=== PATIENT | male | born 1960 | race Hispanic/Latino ===

== ENCOUNTER 2020-12-26 16:11 | Inpatient (IN) | payer OTHER ==
[~2020-12-26] VITALS: Ht 160 cm; Wt 79.4 kg
[2020-12-26] MEDS ORDERED: MORPHINE SULFATE 2 MG/ML 1ML SYG ONE (16:30)
[2020-12-26] MEDS ORDERED: ONDANSETRON HCL 4 MG/2 ML VIAL ONE (16:30)
[2020-12-26 17:12] LABS: BASOPHILS % (AUTO) 0.5 % (0.0-5.0); EOSINOPHILS % (AUTO) 2.2 % (0.0-8.0); HEMATOCRIT 21.3 % (42-54); LYMPHOCYTES % (AUTO) 25.9 % (21.0-51.0); MEAN CORPUSCULAR HEMOGLOBIN 23.1 pg (27.0-33.0); MEAN CORPUSCULAR VOLUME 76.9 fL (79-99); MONOCYTES % (AUTO) 20.8 % (3.0-13.0); NEUTROPHILS % (AUTO) 50.3 % (40.0-77.0); PLATELET COUNT (AUTO) 48 K/uL (130-400); RED BLOOD CELL COUNT(AUTO) 2.77 MIL/uL (4.50-6.20); RED CELL DISTRIBUTION WIDTH 16.7 % (11.0-15.5); WHITE BLOOD COUNT (AUTO) 3.7 K/uL (4.8-10.8)
[2020-12-26 17:15] LABS: CREATININE 1.3 mg/dL (0.5-1.5); POTASSIUM 4.3 mmol/L (3.5-5.1)
[2020-12-26 17:17] LABS: INR 1.23 (0.85-1.15); PROTHROMBIN TIME 13.2 SEC (9.6-11.6)
[2020-12-26 17:18] LABS: PARTIAL THROMBOPLASTIN TIME 33.7 SEC (26.3-35.5)
[2020-12-26 17:20] LABS: ALBUMIN 2.2 g/dL (3.5-5.0)
[2020-12-26] MEDS ORDERED: THIAMINE HCL 100 MG, FOLIC ACID 1 MG, M.V.I. IV [ADULT] 10 ML in SODIUM CHLORIDE 0.9% 1... IV SCH (18:30)
[2020-12-26] MEDS ORDERED: CHLORDIAZEPOXIDE HCL 25 MG CAP PO PRN (18:30)
[2020-12-26] MEDS ORDERED: COMPOUND IV REFRIGERATED 1 EACH IVSOLN MISC PRN (18:30)
[2020-12-26] MEDS ORDERED: PHARMACY COMMUNICATION MISC PRN (18:30)
[2020-12-26 19:20] LABS: APPEARANCE,URINE Clear (CLEAR); BILIRUBIN,URINE Negative (NEGATIVE); COLOR,URINE Yellow (YELLOW); GLUCOSE, URINE (UA) Negative (NEGATIVE); KETONES,URINE Negative (NEGATIVE); LEUKOCYTE ESTERASE ,URINE Negative (NEGATIVE); NITRATE,URINE Negative (NEGATIVE); OCCULT BLOOD,URINE Large (NEGATIVE); PH,URINE 6.5 (5.0-8.0); PROTEIN,URINE POS 2+ mg/dL (NEGATIVE)
[2020-12-26 19:28] LABS: AMPHET/METH SCREEN,URINE NEGATIVE (NEGATIVE); BACTERIA,URINE Few /HPF (None Seen); BARBITURATE SCREEN, URINE NEGATIVE (NEGATIVE); BENZODIAZEPINES SCREEN,URINE NEGATIVE (NEGATIVE); CANNABINOID SCREEN,URINE NEGATIVE (NEGATIVE); COCAINE SCREEN,URINE NEGATIVE (NEGATIVE); MUCUS,URINE Few LPF (None Seen); OPIATE SCREEN,URINE NEGATIVE (NEGATIVE); PHENCYCLIDINE SCREEN,URINE NEGATIVE (NEGATIVE); SQUAMOUS EPITHELIAL CELL,UR 0-2 /HPF (0-2)
== END 2020-12-26 20:50 | disposition left against medical advice (07) | DRG 563 ==
LOC: EDH 16:11 → EDHIP 16:12
PROVIDERS: ADMIT Internal Medicine; ATTEND Internal Medicine
DX: S52.501A Unspecified fracture of the lower end of right radius, initial encounter for closed fracture (principal); D61.818 Other pancytopenia; N17.9 Acute kidney failure, unspecified; F10.139 Alcohol abuse with withdrawal, unspecified; W11.XXXA Fall on and from ladder, initial encounter; K74.60 Unspecified cirrhosis of liver; F10.10 Alcohol abuse, uncomplicated; N18.2 Chronic kidney disease, stage 2 (mild); Z53.29 Procedure and treatment not carried out because of patient's decision for other reasons; Y93.89 Activity, other specified; Y92.89 Other specified places as the place of occurrence of the external cause; Y99.8 Other external cause status
CPT/HCPCS: 36415; 70450; 71045; 72125; 73090; 73130; 76705; 80053; 80305; 81001; 82550; 83880; 84484; 85025; 85610; 85730; 86850; 86900; 86901; 86923; 93005; G0378; J2405; J3411; J3490; J7030

== ENCOUNTER 2022-01-18 00:12 | Inpatient (IN) | payer OTHER ==
[~2022-01-18] VITALS: Ht 162.6 cm; Wt 91.7 kg
[2022-01-18 01:00] LABS: BASOPHILS % (AUTO) 0.4 % (0.0-5.0); EOSINOPHILS % (AUTO) 11.7 % (0.0-8.0); HEMATOCRIT 25.6 % (42-54); INR 1.15 (0.85-1.15); LYMPHOCYTES % (AUTO) 24.2 % (21.0-51.0); MEAN CORPUSCULAR HEMOGLOBIN 30.9 pg (27.0-33.0); MEAN CORPUSCULAR HGB CONC 34.8 g/dL (32.0-36.0); MEAN CORPUSCULAR VOLUME 88.9 fL (79-99); MONOCYTES % (AUTO) 13.8 % (3.0-13.0); NEUTROPHILS % (AUTO) 49.7 % (40.0-77.0); PLATELET COUNT (AUTO) 85 K/uL (130-400); PROTHROMBIN TIME 12.4 SEC (9.6-11.6); RED BLOOD CELL COUNT(AUTO) 2.88 MIL/uL (4.50-6.20); RED CELL DISTRIBUTION WIDTH 15.2 % (11.0-15.5); WHITE BLOOD COUNT (AUTO) 4.9 K/uL (4.8-10.8)
[2022-01-18 01:01] LABS: PARTIAL THROMBOPLASTIN TIME 32.7 SEC (26.3-35.5)
[2022-01-18 01:23] LABS: B-TYPE NATRIURETIC PEPTIDE 134 pg/mL (0-100)
[2022-01-18 01:24] LABS: CREATININE 0.7 mg/dL (0.5-1.5); POTASSIUM 3.5 mmol/L (3.5-5.1)
[2022-01-18 01:28] LABS: TOTAL PROTEIN, SERUM 5.1 g/dL (6.0-8.3)
[2022-01-18 01:37] LABS: APPEARANCE,URINE Clear (CLEAR); BILIRUBIN,URINE Negative (NEGATIVE); COLOR,URINE Yellow (YELLOW); GLUCOSE, URINE (UA) Negative (NEGATIVE); KETONES,URINE Negative (NEGATIVE); LEUKOCYTE ESTERASE ,URINE Negative (NEGATIVE); NITRATE,URINE Negative (NEGATIVE); OCCULT BLOOD,URINE Large (NEGATIVE); PROTEIN,URINE POS 2+ mg/dL (NEGATIVE)
[2022-01-18 01:43] LABS: BACTERIA,URINE Few /HPF (None Seen); SQUAMOUS EPITHELIAL CELL,UR Rare /HPF (0-2)
[2022-01-18] MEDS ORDERED: LORAZEPAM 2 MG/ML 1 ML VIAL IVP PRN (02:00)
[2022-01-18] MEDS ORDERED: ASPIRIN 81MG CHEW TAB PO ONE (02:00)
[2022-01-18] MEDS ORDERED: PHARMACY COMMUNICATION MISC PRN (02:00)
[2022-01-18] MEDS ORDERED: 0.9%NACL 1000ML 1,000 ML IV SCH (02:00)
[2022-01-18] MEDS ORDERED: MORPHINE 4 MG SYG IV PRN (02:00)
[2022-01-18] MEDS ORDERED: MORPHINE 2 MG SYG IV PRN (02:00)
[2022-01-18] MEDS: LACTULOSE 20 GM/30 ML UDCUP PO SCH ×4 (02:21→20:39)
[2022-01-18] MEDS: NITROGLYCERIN 1GM OINT 1 INCH/1GM TD SCH ×3 (02:22→17:37)
[2022-01-18] MEDS ORDERED: FUROSEMIDE 40MG VIAL IV ONE (02:30)
[2022-01-18] MEDS ORDERED: LORA10TA7 PO (06:11)
[2022-01-18] MEDS ORDERED: TRIA15CR48 TP (06:11)
[2022-01-18 08:00] VITALS: BP 159/85
[2022-01-18 08:07] LABS: % IRON SATURATION 25.7 % (30-44)
[2022-01-18 08:10] LABS: CREATININE 0.7 mg/dL (0.5-1.5); MAGNESIUM 1.6 mg/dL (1.80-2.40); PHOSPHORUS 3.4 mg/dL (2.5-4.9); POTASSIUM 3.3 mmol/L (3.5-5.1)
[2022-01-18] MEDS: CALCIUM CARB 500MG PO SCH ×2 (08:58→20:39)
[2022-01-18] MEDS: FAMOTIDINE 20MG TAB PO SCH ×2 (08:58→20:39)
[2022-01-18] MEDS: ASPIRIN 81MG CHEW TAB PO SCH (08:58)
[2022-01-18 12:00] VITALS: BP 150/82
[2022-01-18] MEDS ORDERED: KCL 20 MEQ ERTAB PO SCH (13:00)
[2022-01-18] MEDS: FUROSEMIDE 20 MG TABLET PO SCH (13:22)
[2022-01-18 16:00] VITALS: BP 137/76
[2022-01-18 17:59] LABS: RETICULOCYTE % (AUTO) 3.01 % (0.42-2.23)
[2022-01-18] MEDS ORDERED: IRON SUCROSE COMPLEX 100 MG in 0.9%NACL 50ML 50 ML IV SCH (18:30)
[2022-01-18 18:37] LABS: THYROID STIMULATING HORMONE 2.04 uIU/mL (0.36-3.74)
[2022-01-18] MEDS: IRON SUCROSE COMPLEX 100 MG/5 ML VIAL IVP SCH (18:50)
[2022-01-18] MEDS ORDERED: CEFTRIAXONE 2GM VIAL IVP SCH (19:00)
[2022-01-18 20:04] VITALS: BP 141/74
[2022-01-18 20:11] LABS: POTASSIUM 3.7 mmol/L (3.5-5.1)
[2022-01-18] MEDS: RIFAXIMIN 550 MG TABLET PO SCH (20:39)
[2022-01-18] MEDS: SPIRONOLACTONE 25 MG TAB PO SCH (20:39)
[2022-01-18 23:38] VITALS: BP 170/92
[2022-01-19] MEDS: FUROSEMIDE 20 MG TABLET PO SCH ×2 (00:38→12:19)
[2022-01-19] MEDS: LACTULOSE 20 GM/30 ML UDCUP PO SCH ×4 (01:58→21:25)
[2022-01-19] MEDS: NITROGLYCERIN 1GM OINT 1 INCH/1GM TD SCH (02:09)
[2022-01-19 03:49] VITALS: BP 135/88
[2022-01-19 04:33] LABS: BASOPHILS % (AUTO) 0.3 % (0.0-5.0); EOSINOPHILS % (AUTO) 13.6 % (0.0-8.0); HEMATOCRIT 24.2 % (42-54); MEAN CORPUSCULAR HEMOGLOBIN 30.5 pg (27.0-33.0); MEAN CORPUSCULAR HGB CONC 33.1 g/dL (32.0-36.0); MEAN CORPUSCULAR VOLUME 92.4 fL (79-99); MONOCYTES % (AUTO) 15.6 % (3.0-13.0); NEUTROPHILS % (AUTO) 50.5 % (40.0-77.0); PLATELET COUNT (AUTO) 80 K/uL (130-400); RED BLOOD CELL COUNT(AUTO) 2.62 MIL/uL (4.50-6.20); RED CELL DISTRIBUTION WIDTH 15.7 % (11.0-15.5); WHITE BLOOD COUNT (AUTO) 3.6 K/uL (4.8-10.8)
[2022-01-19 04:49] LABS: INR 1.24 (0.85-1.15); PROTHROMBIN TIME 12.7 SEC (9.6-11.6)
[2022-01-19 04:51] LABS: ALBUMIN 0.9 g/dL (3.5-5.0); BILIRUBIN,TOTAL 0.8 mg/dL (0.2-1.0); CREATININE 0.9 mg/dL (0.5-1.5); POTASSIUM 3.4 mmol/L (3.5-5.1); TOTAL PROTEIN, SERUM 4.6 g/dL (6.0-8.3)
[2022-01-19 08:00] VITALS: BP 145/90
[2022-01-19] MEDS: FAMOTIDINE 20MG TAB PO SCH ×2 (08:07→21:26)
[2022-01-19] MEDS: RIFAXIMIN 550 MG TABLET PO SCH ×2 (08:07→21:26)
[2022-01-19] MEDS: ASPIRIN 81MG CHEW TAB PO SCH (08:08)
[2022-01-19] MEDS: CALCIUM CARB 500MG PO SCH ×2 (08:08→21:26)
[2022-01-19] MEDS: SPIRONOLACTONE 25 MG TAB PO SCH ×2 (08:08→21:26)
[2022-01-19] MEDS ORDERED: KCL 20 MEQ ERTAB PO SCH (09:00)
[2022-01-19] MEDS ORDERED: THIAMINE HCL 100 MG/ML 2ML VIAL IVP SCH (11:30)
[2022-01-19 12:00] VITALS: BP 147/84
[2022-01-19 13:23] LABS: GLUCOSE,BODY FLUID 110 mg/dL (1-40)
[2022-01-19 13:37] LABS: APPEARANCE BODY FLUID CLEAR (CLEAR); BODY FLUID WBC 99 /cu. mm.; COLOR,BODY FLUID YELLOW (LT YELLOW); SPECIMENTYPE,BODY FLUID ASCITES; TOTAL VOLUME,BODY FLUID 2000 mL
[2022-01-19 13:38] LABS: BODY FLUID RBC 45 /cu. mm.
[2022-01-19 13:43] LABS: ALBUMIN,BODY FLUID < 0.6 g/dL
[2022-01-19 14:10] LABS: AMPHET/METH SCREEN,URINE NEGATIVE (NEGATIVE); BARBITURATE SCREEN, URINE NEGATIVE (NEGATIVE); BENZODIAZEPINES SCREEN,URINE NEGATIVE (NEGATIVE); CANNABINOID SCREEN,URINE NEGATIVE (NEGATIVE); COCAINE SCREEN,URINE NEGATIVE (NEGATIVE); OPIATE SCREEN,URINE NEGATIVE (NEGATIVE); PHENCYCLIDINE SCREEN,URINE NEGATIVE (NEGATIVE)
[2022-01-19 14:38] LABS: BF LYMPHOCYTE 19 %; BF MESOTHELIAL 74 %; BF MONOCYTE 6 %
[2022-01-19 14:41] LABS: HEPATITIS B SURFACE ANTIGEN Non-Reactive (Negative)
[2022-01-19] MEDS ORDERED: LIDOCAINE HCL 1% 20 ML VIAL ONE (15:39)
[2022-01-19 16:00] VITALS: BP 154/75
[2022-01-19] MEDS: IRON SUCROSE COMPLEX 100 MG/5 ML VIAL IVP SCH (18:20)
[2022-01-19 19:40] LABS: HEPATITIS A IGM ANTIBODY Non-Reactive (Negative); HEPATITIS B CORE IGM ANTIBODY Non-Reactive (Negative); HEPATITIS C ANTIBODY Non-Reactive (NEGATIVE)
[2022-01-19 20:00] VITALS: BP 143/74
[2022-01-19] MEDS: CEFTRIAXONE 2GM VIAL IVP SCH (21:26)
[2022-01-20] VITALS (7 sets, daily range): BP systolic 142–166; BP diastolic 68–86
[2022-01-20] MEDS: FUROSEMIDE 20 MG TABLET PO SCH ×2 (00:43→13:03)
[2022-01-20 06:49] LABS: BASOPHILS % (AUTO) 0.3 % (0.0-5.0); EOSINOPHILS % (AUTO) 11.7 % (0.0-8.0); HEMATOCRIT 24.6 % (42-54); LYMPHOCYTES % (AUTO) 22.9 % (21.0-51.0); MEAN CORPUSCULAR HEMOGLOBIN 31.3 pg (27.0-33.0); MEAN CORPUSCULAR HGB CONC 32.9 g/dL (32.0-36.0); MONOCYTES % (AUTO) 15.1 % (3.0-13.0); NEUTROPHILS % (AUTO) 49.7 % (40.0-77.0); PLATELET COUNT (AUTO) 75 K/uL (130-400); RED BLOOD CELL COUNT(AUTO) 2.59 MIL/uL (4.50-6.20); RED CELL DISTRIBUTION WIDTH 16.1 % (11.0-15.5); WHITE BLOOD COUNT (AUTO) 3.5 K/uL (4.8-10.8)
[2022-01-20 07:05] LABS: ALBUMIN 0.8 g/dL (3.5-5.0); BILIRUBIN,TOTAL 0.6 mg/dL (0.2-1.0); CREATININE 0.9 mg/dL (0.5-1.5); MAGNESIUM 1.7 mg/dL (1.80-2.40); POTASSIUM 3.8 mmol/L (3.5-5.1); TOTAL PROTEIN, SERUM 4.7 g/dL (6.0-8.3)
[2022-01-20] MEDS: RIFAXIMIN 550 MG TABLET PO SCH ×2 (08:53→20:34)
[2022-01-20] MEDS: SPIRONOLACTONE 25 MG TAB PO SCH ×2 (08:54→20:33)
[2022-01-20] MEDS: FAMOTIDINE 20MG TAB PO SCH ×2 (08:54→20:34)
[2022-01-20] MEDS: ASPIRIN 81MG CHEW TAB PO SCH (08:54)
[2022-01-20] MEDS: CALCIUM CARB 500MG PO SCH ×2 (08:54→20:33)
[2022-01-20] MEDS: LACTULOSE 20 GM/30 ML UDCUP PO SCH (18:38)
[2022-01-20] MEDS: CEFTRIAXONE 2GM VIAL IVP SCH (20:33)
[2022-01-20] MEDS: IRON SUCROSE COMPLEX 100 MG/5 ML VIAL IVP SCH (20:33)
[2022-01-21 00:03] VITALS: BP 156/85
[2022-01-21] MEDS: FUROSEMIDE 20 MG TABLET PO SCH (00:17)
[2022-01-21] MEDS: LACTULOSE 20 GM/30 ML UDCUP PO SCH ×2 (00:19→05:12)
[2022-01-21 03:03] VITALS: BP 148/77
[2022-01-21 04:01] LABS: HEMATOCRIT 24.1 % (42-54); MEAN CORPUSCULAR HEMOGLOBIN 31.1 pg (27.0-33.0); MEAN CORPUSCULAR HGB CONC 32.8 g/dL (32.0-36.0); MEAN CORPUSCULAR VOLUME 94.9 fL (79-99); RED BLOOD CELL COUNT(AUTO) 2.54 MIL/uL (4.50-6.20); RED CELL DISTRIBUTION WIDTH 15.9 % (11.0-15.5); WHITE BLOOD COUNT (AUTO) 4.2 K/uL (4.8-10.8)
[2022-01-21 04:20] LABS: ALBUMIN 0.9 g/dL (3.5-5.0); BILIRUBIN,TOTAL 0.5 mg/dL (0.2-1.0); CREATININE 0.8 mg/dL (0.5-1.5); POTASSIUM 3.9 mmol/L (3.5-5.1); TOTAL PROTEIN, SERUM 4.5 g/dL (6.0-8.3)
[2022-01-21] MEDS ORDERED: FURO20TA6 PO (07:04)
[2022-01-21] MEDS ORDERED: RIFA550T PO (07:04)
[2022-01-21] MEDS ORDERED: SPIR25TA6 PO (07:04)
[2022-01-21] MEDS ORDERED: ASPI-1005 PO (07:04)
[2022-01-21] MEDS: RIFAXIMIN 550 MG TABLET PO SCH (07:52)
[2022-01-21] MEDS: FAMOTIDINE 20MG TAB PO SCH (07:52)
[2022-01-21] MEDS: ASPIRIN 81MG CHEW TAB PO SCH (07:52)
[2022-01-21] MEDS: CALCIUM CARB 500MG PO SCH (07:52)
[2022-01-21] MEDS: SPIRONOLACTONE 25 MG TAB PO SCH (07:53)
[2022-01-21 08:00] VITALS: BP 138/75
== END 2022-01-21 09:50 | disposition home or self-care (01) | DRG 441 ==
LOC: EDH 00:12 → EDHIP 00:13 → 4DH 04:35 → 2DH 01-20 22:08
PROVIDERS: ADMIT Internal Medicine; ATTEND Internal Medicine
PROC: 0W9G3ZZ Drainage of Peritoneal Cavity, Percutaneous Approach (ICD-10-PCS; principal; 2022-01-19)
DX: K72.90 Hepatic failure, unspecified without coma (principal); E43 Unspecified severe protein-calorie malnutrition; E87.1 Hypo-osmolality and hyponatremia; R18.8 Other ascites; K74.60 Unspecified cirrhosis of liver; D69.6 Thrombocytopenia, unspecified; E66.9 Obesity, unspecified; E83.51 Hypocalcemia; E87.70 Fluid overload, unspecified; I34.0 Nonrheumatic mitral (valve) insufficiency; F10.10 Alcohol abuse, uncomplicated; Z68.34 Body mass index [BMI] 34.0-34.9, adult
CPT/HCPCS: 36415; 49083; 71045; 80048; 80053; 80074; 80305; 81001; 82042; 82140; 82607; 82728; 82746; 82945; 83540; 83550; 83615; 83735; 83880; 83930; 83935; 83986; 84100; 84157; 84443; 84484; 85025; 85027; 85045; 85610; 85730; 87071; 87205; 89051; 93005; 93306; C1729; G0378; J0696; J1756; J1940; J3411

== ENCOUNTER 2025-05-08 21:52 | Inpatient (IN) | payer SELFPAY ==
[~2025-05-08] VITALS: Ht 165.1 cm; Wt 69.0 kg
[~2025-05-08 21:52] MED LIST: FERR324T4 PO; LACT10SO85 PO; RIFA550T PO; SUCCINYLCHOLINE CHLORIDE 20 MG/ML 10 ML VIAL IVP ONE
--- NOTE | 2025-05-08 22:12 | ERN ---
ED Note History of Present Illness Stated Complaint: C/O ALTERED MENTAL STATUS; Chief Complaint: Altered Mental Status Time Seen by MD: 22:03 Dictation: This is a 65-year-old male with known history of cirrhosis of the liver was brought to the emergency room by his with complaints of confusion and disorientation. She indicated that he has been taking rifaximin for the past 10 days although he was recommended for 30 days. She also indicated that he does take lactulose and has 3-4 loose stools daily. She denied any fevers chills or rigors. No new medications. No nausea vomitings diarrhea other than the loose stools from lactulose No history of any head injury, blurred vision diplopia motor weakness or seizure activity. Temperature 98.5 pulse 87 respirations 20 blood pressure 160/64 with a pulse oximetry of 99% on room air Chronic medical problem includes cirrhosis of the liver Allergies: Coded Allergies: No Known Allergies (Verified Allergy, Unknown, 12/26/20) Home Meds Active Scripts Rifaximin (Xifaxan) 550 Mg Tablet, 550 MG PO Q12H, #60 TAB Prov:REGINA LOGAN MD 03/29/25 Lactulose (Lactulose) 10 Gram/15 Ml Solution, 45 ML PO TID for constipation, #500 ML 0 Refills Prov:REGINA LOGAN MD 03/29/25 Reported Medications Ferrous Sulfate (Ferrous Sulfate) 324 Mg (65 Mg Iron) Tablet.dr, 1 TAB PO DAILY for 30 Days, #30 TAB 0 Refills 03/27/25 Past Medical History Past Medical History: Other Additional Past Medical Hx: CIRRHOSIS OF LIVER Surgical History: Other Surgical History Other: hernia repair sx 12/2024 Family History: Negative RN Note Reviewed/Agreed w/PFSH: Yes Review of System Dictation Constitutional: Negative for fever,chills, and weight loss Eyes: Negative for injury, pain,redness, and discharge ENT: Negative for injury,pain or swelling Cardiovascular: Negative for chest pain, palpitations, and edema Respiratory: Negative for shortness of breath, cough, and wheezing, Abdomen/GI: Negative for abdominal pain, nausea, vomiting, diarrhea, and constipation Back: Negative for injury and pain : Negative for injury, bleeding and discharge MS/Extremity: Negative for injury and deformity Skin: Negative for rash, and discoloration Neuro: Negative for headache, weakness, numbness, tingling, and seizure positive for disorientation and confusion Psych: Negative for suicide ideation, homicidal ideation, and hallucinations Initial Vital Sign VS Vital Signs Date Time Temp Pulse Resp B/P (MAP) Pulse Ox O2 Delivery O2 Flow Rate FiO2 05/08/25 21:54 98.4 87 20 160/64 99 Room Air 05/08/25 22:38 0 21 Physical Exam Dictation General: awake, alert, NAD very ill-appearing chronically and extremely disoriented repeating same sentence for every question. Head/Face: Normocephalic, atraumatic Eyes: PERRL, EOMI, vision at baseline ENT: oral cavity dry TMs clear, no signs of infection Neck: Trachea midline, supple, no nuchal rigidity Cardiovascular: RRR, normal S1/S2, No MRGs, no JVD Respiratory: CTAB, no respiratory distress, No rales or wheezes Abdomen: Soft, non-tender, non-distended, normal bowel sounds, no guarding or rebound. I did not appreciate any ascites Skin: Warm, dry, normal turgor, no rash spider nevi across the chest neck area MS/Extremity: Pulses equal, no cyanosis, neurovascular intact, FROM Neuro: COAx1, strength 5/5, CN 2-12 intact, normal cerebellar exam, Psych: Normal behavior, mood, and affect normal Extremities-trace edema without any palpable cords, Homans sign is negative Results (Laboratory/Radiology) Laboratory/Radiology Laboratory Tests Test 05/08/25 22:38 05/08/25 23:33 White Blood Count 3.4 K/uL (4.8-10.8) L Red Blood Count 2.30 MIL/uL (4.50-6.20) L Hemoglobin 7.6 g/dL (14.0-18.0) L Hematocrit 23.0 % (42-54) L Mean Corpuscular Volume 100.0 fL (79-99) H Mean Corpuscular Hemoglobin 33.0 pg (27.0-33.0) Mean Corpuscular Hemoglobin Concent 33.0 g/dL (32.0-36.0) Red Cell Distribution Width 15.0 % (11.0-15.5) Platelet Count 66 K/uL (130-400) L Mean Platelet Volume 12.8 fL (7.5-10.5) H Immature Granulocyte % (Auto) 0.3 % (0-1) Neutrophils (%) (Auto) 59.6 % (40.0-77.0) Lymphocytes (%) (Auto) 20.2 % (21.0-51.0) L Monocytes (%) (Auto) 11.1 % (3.0-13.0) Eosinophils (%) (Auto) 8.5 % (0.0-8.0) H Basophils (%) (Auto) 0.3 % (0.0-5.0) Neutrophils # (Auto) 2.0 K/uL (1.8-7.7) Lymphocytes # (Auto) 0.7 K/uL (1.0-4.8) L Monocytes # (Auto) 0.4 K/uL (0.1-1.0) Eosinophils # (Auto) 0.29 K/uL (0.00-0.70) Basophils # (Auto) 0.01 K/uL (0.00-0.20) Absolute Immature Granulocyte (auto 0.01 K/uL (0-1) Nucleated Red Blood Cells 0.0 % (0.0-0.19) Platelet Morphology Comment See comments Sodium Level 142 mmol/L (136-145) Potassium Level 4.6 mmol/L (3.5-5.1) Chloride Level 113 mmol/L (101-111) H Carbon Dioxide Level 16 mmol/L (21-32) L Blood Urea Nitrogen 62 mg/dL (7-18) H Creatinine 2.5 mg/dL (0.5-1.3) H Glomerular Filtration Rate Calc 28 mL/min (>90) Random Glucose 125 mg/dL (70-105) H Total Calcium 8.0 mg/dL (8.5-10.1) L Total Bilirubin 0.5 mg/dL (0.2-1.0) Aspartate Amino Transf (AST/SGOT) 58 U/L (10-37) H Alanine Aminotransferase (ALT/SGPT) 39 U/L (12-78) Alkaline Phosphatase 232 U/L (50-136) H Ammonia 79 umol/L (11-32) H Total Protein 5.9 g/dL (6.0-8.3) L Albumin 2.0 g/dL (3.5-5.0) L Acetaminophen Level 2 mcg/mL (10-29) L Serum Alcohol < 3 mg/dL (0-10) Urine Color LIGHT-YELLOW (YELLOW) Urine Appearance CLEAR (CLEAR) Urine pH 6.0 (5.0-8.0) Urine Specific [place] 1.013 (1.001-1.031) Urine Protein 300 mg/dL (NEGATIVE) H Urine Glucose (UA) NEGATIVE mg/dL (NEGATIVE) Urine Ketones NEGATIVE mg/dL (NEGATIVE) Urine Occult Blood SMALL (NEGATIVE) H Urine Nitrate NEGATIVE (NEGATIVE) Urine Bilirubin NEGATIVE mg/dL (NEGATIVE) Urine Urobilinogen 0.2 mg/dL (0.2-1.0) Urine Leukocyte Esterase NEGATIVE Sana/uL Urine RBC 2-5 /HPF (0-1) H Urine WBC 2-5 /HPF (0-1) H Urine Bacteria None /HPF (None Seen) Urine Opiates Screen NEGATIVE (NEGATIVE) Urine Barbiturates Screen NEGATIVE (NEGATIVE) Urine Phencyclidine Screen NEGATIVE (NEGATIVE) Urine Amphetamines Screen NEGATIVE (NEGATIVE) Urine Benzodiazepines Screen NEGATIVE (NEGATIVE) Urine Cocaine Screen NEGATIVE (NEGATIVE) Urine Marijuana (THC) Screen NEGATIVE (NEGATIVE) Labs Reviewed?: Yes ED Course ED Course Orders Procedure Category Date Status Time Alcohol, Blood LAB 05/08/25 Complete 22:06 Ammonia LAB 05/08/25 Complete 22:06 Cbc With Differential LAB 05/08/25 Complete 22:06 Acetaminophen LAB 05/08/25 Complete 22:06 Urinalysis Profile LAB 05/08/25 Complete 22:06 Comprehensive LAB 05/08/25 Complete Metabolic Panel 22:06 Drug Screen Urine LAB 05/08/25 Complete 22:06 0.9%Nacl 1000ml (Ns PHA 05/08/25 In Process 1000ml) 22:30 Ct Head/Brain W/O CT 05/08/25 Taken Contrast 22:10 Admit Orders ADM 05/08/25 Transmitted 23:51 Current Medications Medications (Trade) Dose Ordered Sig/Abdiel Route PRN Reason Start Time Stop Time Status Last Admin Dose Admin Sodium Chloride 1,000 ml @ 125 mls/hr ONCE ONCE IV 05/08/25 22:30 05/09/25 06:29 05/08/25 22:38 Vital Signs Date Time Temp Pulse Resp B/P (MAP) Pulse Ox O2 Delivery O2 Flow Rate FiO2 05/08/25 22:38 83 16 162/73 98 Room Air* 0 21 05/08/25 21:54 98.4 87 20 160/64 99 Room Air We will perform diagnostic labs, advanced imaging and administer medications according to the patient's complaint. Once the results are available, will review and personally interpreted the labs to rule out any acute life- threatening emergency the trach require immediate intervention and treatment. I will then re-evaluate the patient after treatment and diagnostic exams have return to determine whether the patient requires any further testing, can safely be discharged home or need further admission to hospital for additional treatment and evaluation. Labs reviewed CBC showed a white count of 3.4 hemoglobin 7.6 platelets 66 BNP 7 is significant for mild acidosis with a bicarbonate of 16 BUN and creatinine are 62 and 2.5. First set of troponin is 200 alkaline phosphatase is [address] scan of the head without contrast showed diffuse atrophy but no acute intracranial event. I updated the patient's spouse and explained to her that this may simply be related to the hepatic encephalopathy however with the confusion and complete disorientation, I recommended admission to the hospital for further evaluation. She is agreeable 12:00 a.m. patient accepted by Brian Guzman, mid-level provider for hospitalist group for admission and further management Medical Decision Making MDM Differential diagnosis: Acute metabolic encephalopathy possibly secondary to dehydration or sepsis, acute hepatic encephalopathy, medication effects, early hepatorenal syndrome Rationale: Tests considered and ordered secondary to shared decision making include: labs, ECG and radiology Previous outside records reviewed: Old ER visits. Risk of complication and/or morbidity or mortality of patient management: None Medications-Per medication reconciliation Need for hospitalization: Patient does meet criteria for hospitalization. Need for emergency major/minor surgery: No There are no social concerns with this patient. Prescription drug management Prescriptions will include symptomatic care Patient's prior external medical records from other ER visits were reviewed by me as indicated. Prior testing and results from previous visits were reviewed. Prior tests were taken into account with medical decision making and resource utilization, independent historian/historians were used to obtain complete medical history. I independently interpreted the test that were performed, results were reviewed by me and considered findings on radiology if ordered. Medical management and examination interpretation discussions were had by me with other qualified healthcare professionals as indicated for the patient's care. Problem List Problem List: (1) Acute metabolic encephalopathy (2) Hepatic encephalopathy (3) Cirrhosis (4) Thrombocytopenia (5) Anemia (6) Increased ammonia level (7) Abnormal cardiac enzyme level (8) Acute kidney injury DX & DISP Disposition: Inpatient Decision to Admit Time: 23:58 Departure Impression: Primary Impression: Acute metabolic encephalopathy Additional Impressions: Hepatic encephalopathy, Increased ammonia level, Anemia, Thrombocytopenia, Alcoholic cirrhosis of liver without ascites, Abnormal cardiac enzyme level, Acute kidney injury Condition: Stable Additional Instructions: Patient was informed of all the diagnostic labs and procedures conducted in the emergency room today and demonstrated understanding of the results. I personally reviewed and interpreted all the diagnostic exams performed in the ER today. The patient will be admitted to the hospital for further treatment and evaluation. Disposition-admit to facility Condition-stable/guarded Course-uncertain at this time Pain status-decreased Assessment-exam unchanged Admission Certification- I certify that the patients status is appropriate and is based on my best clinical judgment and the patient's condition as documented in the medical records Referrals: SAM ROBLES (PCP) ASHLEY MORGAN MD May 08, 2025 22:12
[2025-05-08] MEDS: 0.9%NACL 1000ML 1,000 ML IV ONE (22:38)
[2025-05-08 22:49] LABS: IMMATURE GRANULOCYTE ABSOLUTE 0.01 K/uL (0-1); NUCLEATED RED BLOOD CELLS 0.0 % (0.0-0.19); PLATELET COUNT (AUTO) 66 K/uL (130-400); RED BLOOD CELL COUNT(AUTO) 2.30 MIL/uL (4.50-6.20); RED CELL DISTRIBUTION WIDTH 15.0 % (11.0-15.5); WHITE BLOOD COUNT (AUTO) 3.4 K/uL (4.8-10.8)
[2025-05-08 23:02] LABS: CREATININE 2.5 mg/dL (0.5-1.3); GLOMERULAR FILTR. RATE CALC 28 mL/min (>90); GLUCOSE,RANDOM 125 mg/dL (70-105); SODIUM SERUM 142 mmol/L (136-145); UREA NITROGEN, BLOOD 62 mg/dL (7-18)
[2025-05-08 23:06] LABS: ALCOHOL, BLOOD < 3 mg/dL (0-10); ASPARTATE AMINOTRANSFERASE 58 U/L (10-37); TOTAL PROTEIN, SERUM 5.9 g/dL (6.0-8.3)
[2025-05-08 23:50] LABS: APPEARANCE,URINE CLEAR (CLEAR); GLUCOSE, URINE (UA) NEGATIVE (NEGATIVE); LEUKOCYTE ESTERASE ,URINE NEGATIVE Leu/uL (NEGATIVE); NITRATE,URINE NEGATIVE (NEGATIVE); OCCULT BLOOD,URINE SMALL (NEGATIVE)
[2025-05-08 23:52] LABS: ADD UA MICROSCOPIC YES
--- NOTE | 2025-05-08 23:52 | HP ---
History of Present Illness Reason for Visit: ams Referring MD: Self Referral History of Present Illness Mr. Carcamo is a 65-year-old male that was seen and examined today on . Patient is unable to provide any past medical history. Patient's , Lauren Chance is at bedside. Patient's reports that she brought the patient to the emergency department with a chief complaint of altered mental status. Onset was yesterday at 1800. Location is head. Duration is constant. Character is described as delayed speech. There was no alleviating factors. There was no aggravating factors. Patient reports multiple episodes in the last three months secondary to patient 's liver cirrhosis. Today in the emergency department WBCs 3.4, hemoglobin 7.6, hematocrit 23.0, platelets 66, creatinine 2.5, BUN 62, alkaline phosphatase 232, ammonia 79, urinalysis unremarkable, toxicology unremarkable. Emergency room physician recommended patient be admitted with a diagnosis of encephalopathy. Past Medical History Patient History: Unknown MOTHER FATHER ADDITIONAL PAST MEDICAL HISTORY: [Liver cirrhosis] SOCIAL HISTORY: [Negative for smoking, alcohol use, drug use. Patient lives with his . Patient is typically independent of his ADLs. 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 Dyspnea, Edema, Lt Headedness, Other Gastrointestinal: No: Nausea, Vomiting, Abdominal Pain, Diarrhea, Constipation, Melena, Hematochezia, Other Genitourinary: No Dysuria, No Frequency, No Incontinence, No Hematuria, No Retention, No Other Musculoskeletal: No: other, neck pain, shoulder pain, arm pain, back pain, hand pain, leg pain, foot pain Skin: No Urticaria, No Rash, No Other Neurological: Change in speech, Confusion; No: Weakness, Numbness, Incoordination, Seizures, Other Allergies: Coded Allergies: No Known Allergies (Verified Allergy, Unknown, 12/26/20) Scheduled Ferrous Sulfate (Ferrous Sulfate), 1 TAB PO DAILY, (Reported) Lactulose (Lactulose), 45 ML PO TID Rifaximin (Xifaxan), 550 MG PO Q12H Exam Vital Signs Vital Signs Date Time Temp Pulse Resp B/P (MAP) Pulse Ox O2 Delivery O2 Flow Rate FiO2 05/08/25 22:38 83 16 162/73 98 Room Air* 0 21 05/08/25 21:54 98.4 General Appearance: Alert (X1), No acute distress HEENT: Atraumatic, EOMI Respiratory: Clear to auscultation, Normal air movement, NL respiratory effort Cardiovascular: Regular rate, Regular rhythm, Normal S2 Abdominal: Normal bowel sounds, Soft, No tenderness Extremities: No edema Skin: No significant lesion Neuro: Normal speech, Strength at 5/5 X4 ext, Sensation intact, Cranial nerves 3-12 NL Psych/Mental Status: Mental status NL, Mood NL, Thoughts/Content NL Assessment/Plan ASSESSMENT: [ Metabolic encephalopathy, POA Uremia, POA Acute kidney injury, POA creatinine from 03/29/2025 which was 2.1, today it is 2.5. Hepatic encephalopathy, POA Pancytopenia, POA Liver cirrhosis, POA] PLAN: [ Admit patient to medical floor as inpatient status. Fall precautions. Reviewed creatinine from 03/29/2025 which was 2.1, today it is 2.5. Calculate FENA Check urine sodium, creatinine, osmolality Avoid nephrotoxic agents when possible Renally dose all medications when possible Consider consulting Nephrology service if any worsening renal function or evidence of ATN. Monitor patient's labs. Weight patient daily. Monitor intake and output. Fluid restriction 1500 mL daily Lactulose 20 g/30 mL by mouth twice daily Lactulose 20 g/30 mL by mouth times 1 Avoid anticoagulation during this hospitalization. GI prophylaxis, Protonix DVT prophylaxis, Gokul's and SCDs ADVANCED CARE PLANNING 1. Which of the following were discussed? Hospice Care - Yes Therapeutic options - yes Advance Directives - Yes - patient does not have any advance directives in place at this time, however his , Lauren can make decisions for him if he becomes unable. Other discussions - patient wishes to remain a full code at this time 2. Discussed with who? Patient's 3. Voluntary nature of this service was explained to the patient? Yes 4. Amount of time spent - ___16 minutes____ 5. Reviewed by Physician? (if this service was performed by NPP) Yes This document was generated in part using voice recognition software, occasional wrong word or sound alike substitutions may have occurred due to the inherent limitations of voice recognition software. Read the chart carefully and recognize using context, where the substitutions have occurred. Although every effort was made to edit the content, painter interior finish and typing errors may occur ATTESTATION BY PHYSICIAN I have seen and examined the patient. I reviewed the documentation, medical decision making, and treatment plan as noted by the mid-level provider above. I agree with the findings and plan of care. RAVI DELUCA [facility] May 08, 2025 23:52
[2025-05-08 23:56] LABS: AMPHET/METH SCREEN,URINE NEGATIVE (NEGATIVE); BARBITURATE SCREEN, URINE NEGATIVE (NEGATIVE); CANNABINOID SCREEN,URINE NEGATIVE (NEGATIVE); COCAINE SCREEN,URINE NEGATIVE (NEGATIVE)
[2025-05-09] VITALS (8 sets, daily range): BP systolic 135–148; BP diastolic 60–84; PULSE 68–89; RESP 17–18; TEMP 98–98.2; O2SAT 98–99
[2025-05-09] MEDS: 0.9%NACL 1000ML 1,000 ML IV ONE (00:10)
--- NOTE | 2025-05-09 00:49 | HMCIMG ---
EXAM: Non-contrast CT examination of the Brain CLINICAL HISTORY: Confusion. Altered mental status. TECHNIQUE: Thin collimated axial CT images of the brain were obtained, with sagittal and coronal reformatted images also submitted. CT scan done according to ALARA (As Low as Reasonably Achievable). CONTRAST USED: None. COMPARISON: Prior CT brain dated 03/26/25. FINDINGS: No acute intracranial abnormality is present. No acute cortical infarction, hemorrhage, mass, or mass effect. Small, ill-defined hypodensities in the bilateral cerebral white matter suggest mild chronic ischemic changes secondary to small vessel disease. Mild to moderate generalized cerebral atrophy, more for the given age. No hydrocephalus or abnormal extra-axial fluid collections. The posterior fossa is unremarkable. The skull base and calvarium are intact. The included portions of the paranasal sinuses and mastoid air cells are clear. IMPRESSION: No acute intracranial abnormality is present. Mild chronic ischemic changes secondary to small vessel disease. Mild to moderate generalized cerebral atrophy, more for the given age. No significant interval changes. /[place]
[2025-05-09] MEDS: LACTULOSE 20 GM/30 ML UDCUP PO ONE (03:20)
[2025-05-09 05:36] LABS: IMMATURE GRANULOCYTE ABSOLUTE 0.02 K/uL (0-1); NUCLEATED RED BLOOD CELLS 0.0 % (0.0-0.19); PLATELET COUNT (AUTO) 65 K/uL (130-400); RED BLOOD CELL COUNT(AUTO) 2.29 MIL/uL (4.50-6.20); RED CELL DISTRIBUTION WIDTH 15.0 % (11.0-15.5); WHITE BLOOD COUNT (AUTO) 3.4 K/uL (4.8-10.8)
[2025-05-09 05:47] LABS: CREATININE 2.2 mg/dL (0.5-1.3); GLOMERULAR FILTR. RATE CALC 33.0 mL/min (>90); GLUCOSE,RANDOM 106.0 mg/dL (70-105); PHOSPHORUS 4.0 mg/dL (2.5-4.9); SODIUM SERUM 145.0 mmol/L (136-145); UREA NITROGEN, BLOOD 60.0 mg/dL (7-18)
[2025-05-09 06:38] LABS: CREATININE,URINE RANDOM 92.31 mg/dL (30-135)
[2025-05-09] MEDS ORDERED: SPIR25TA6 PO (07:03)
[2025-05-09] MEDS: LACTULOSE 20 GM/30 ML UDCUP PO SCH (09:13)
--- NOTE | 2025-05-09 09:48 | NUR ---
DCP: HOME Pt currently lives with sps, son, and father in law. Pt does not have DME, home health, or provider services. Pt states that he can complete ADLs independently. PCP is Dr. Quan Bonilla and uses [facility] for any RX needs. At [place] pt will want to go home and family can assist with transportation. Addendum: 05/09/25 at 0952 by TRAVIS MCKINNEY SS Amended: Links added.
--- NOTE | 2025-05-09 12:39 | PN ---
[facility] PROGRESS NOTE Date of Service: May 09, 2025 Time of Service: 12:[address] Dao SUBJECTIVE: [ 05/08 Patient's reports that she brought the patient to the emergency department with a chief complaint of altered mental status. Onset was yesterday at 1800. Location is head. Duration is constant. Character is described as delayed speech. There was no alleviating factors. There was no aggravating factors. Patient reports multiple episodes in the last three months secondary to patient's liver cirrhosis. Today in the emergency department WBCs 3.4, hemoglobin 7.6, hematocrit 23.0, platelets 66, creatinine 2.5, BUN 62, alkaline phosphatase 232, ammonia 79, urinalysis unremarkable, toxicology unremarkable. Emergency room physician recommended patient be admitted with a diagnosis of encephalopathy. 05/09 was seen by nurse practitioner and physician during rounding in room 332. Patient's ammonia level today is 79. Patient is more alert and oriented. Family members/ at the bedside. CT head brain was negative. Creatinine has improved and compared to the previous admission is about stable. We will order chest x-ray and physical therapy. UA negative for leukocytosis. We will continue to monitor patient in the meantime. A.m. lab] REVIEW OF SYSTEMS CONSTITUTIONAL: Denies fevers, chills, or night sweats. No unintentional weight loss reported. NEUROLOGICAL: Denies headache, amaurosis fugax, motor weakness, sensory deficit, vertigo/spinning sensation, gait abnormalities, or tremors. ENT: No hearing loss, otalgia, otorrhea, rhinitis, rhinorrhea, hoarseness, or sore throat. CARDIOVASCULAR: Denies any exertional angina, dyspnea on exertion, orthopnea, paroxysmal nocturnal dyspnea, palpitations, life-threatening arrhythmias, claudication. PULMONARY: Denies any shortness of breath, cough, phlegm/sputum, hemoptysis, pleuritic chest pain. SLEEP: Denies morning headaches, daytime somnolence or napping. Denies difficulty falling asleep, staying asleep, waking from sleep. Denies knowledge of snoring. GASTROINTESTINAL: Denies any type of dysphagia to either liquids or solids. Denies nausea, vomiting, pyrosis, early satiety, abdominal pain, diarrhea, constipation, or changes in stool consistency or caliber. Denies coffee-ground emesis, hematemesis, hematochezia, or melanotic stools. GENITOURINARY: Denies frequency, urgency, nocturia, hematuria or incontinence (Storage/Irritative symptoms.) Low urinary stream, straining to void, urinary intermittency or hesitancy, splitting of the voiding stream, terminal dribbling. ENDOCRINOLOGIC: Denies polyuria, polydipsia, polyphagia or heat/cold intolerances. HEMATOLOGIC: Denies thrombophilia/previous clots, or coagulopathy/bleeding disorders. ONCOLOGIC: Denies personal history of malignancy. DERMATOLOGIC: Denies rashes or pruritus. PSYCHIATRIC: Denies any suicidal or homicidal ideation. Denies hallucinations. PHYSICAL EXAM GENERAL APPEARANCE: The patient is awake, alert, and oriented, in no acute cardiopulmonary distress. NEUROLOGICAL: Cranial nerves II-XII grossly intact. Motor is 5/5 in bilateral upper and lower extremities proximal to distal. No sensory deficits. HEENT: Face is symmetric. Pupils are equal and reactive. Extraocular movements are intact. NECK: Supple. No JVD. No thyromegaly. No submental, submandibular, pre- /postauricular, occipital or supraclavicular lymphadenopathy. CHEST: Normal chest expansion. No Telemetry. LUNGS: Absence of any rales, rhonchi or any wheezing. CARDIOVASCULAR: Regular. S1 and S2 normal. No appreciable rubs, murmurs or gallops. ABDOMEN: Soft, nontender, and nondistended. There is no rebound, voluntary guarding, or rigidity. : Deferred. No Kelly. EXTREMITIES: Non-edematous and not cyanotic. No clubbing. Good capillary refill. SKIN: No skin breakdown. Vital Signs (last 8hr) Date Time Temp Pulse Resp B/P (MAP) Pulse Ox O2 Delivery O2 Flow Rate FiO2 05/09/25 11:37 98.1 72 18 135/60 98 Room Air 05/09/25 10:27 98 Room Air* 0 21 05/09/25 08:12 98.1 84 18 136/68 98 Room Air LABS: Laboratory: Test 05/09/25 05:25 05/08/25 23:33 05/08/25 22:38 Range/Units White Blood Count 3.4 L 4.8-10.8 K/uL Red Blood Count 2.29 L 4.50-6.20 MIL/uL Hemoglobin 7.6 L 14.0-18.0 g/dL Hematocrit 22.6 L 42-54 % Mean Corpuscular Volume 98.7 79-99 fL Mean Corpuscular Hemoglobin 33.2 H 27.0-33.0 pg Mean Corpuscular Hemoglobin Concent 33.6 32.0-36.0 g/dL Red Cell Distribution Width 15.0 11.0-15.5 % Platelet Count 65 L 130-400 K/uL Mean Platelet Volume 13.1 H 7.5-10.5 fL Immature Granulocyte % (Auto) 0.6 0-1 % Neutrophils (%) (Auto) 53.3 40.0-77.0 % Lymphocytes (%) (Auto) 24.8 21.0-51.0 % Monocytes (%) (Auto) 11.7 3.0-13.0 % Eosinophils (%) (Auto) 9.0 H 0.0-8.0 % Basophils (%) (Auto) 0.6 0.0-5.0 % Neutrophils # (Auto) 1.8 1.8-7.7 K/uL Lymphocytes # (Auto) 0.9 L 1.0-4.8 K/uL Monocytes # (Auto) 0.4 0.1-1.0 K/uL Eosinophils # (Auto) 0.31 0.00-0.70 K/uL Basophils # (Auto) 0.02 0.00-0.20 K/uL Absolute Immature Granulocyte (auto 0.02 0-1 K/uL Nucleated Red Blood Cells 0.0 0.0-0.19 % Sodium Level 145 136-145 mmol/L Potassium Level 4.0 3.5-5.1 mmol/L Chloride Level 118 H 101-111 mmol/L Carbon Dioxide Level 13 L 21-32 mmol/L Blood Urea Nitrogen 60 H 7-18 mg/dL Creatinine 2.2 H 0.5-1.3 mg/dL Glomerular Filtration Rate Calc 33 >90 mL/min Random Glucose 106 H 70-105 mg/dL Total Calcium 8.0 L 8.5-10.1 mg/dL Phosphorus Level 4.0 2.5-4.9 mg/dL Magnesium Level 2.40 1.80-2.40 mg/dL Urine Color LIGHT-YELLOW YELLOW Urine Appearance CLEAR CLEAR Urine pH 6.0 5.0-8.0 Urine Specific [place] 1.013 1.001-1.031 Urine Protein 300 H NEGATIVE mg/dL Urine Glucose (UA) NEGATIVE NEGATIVE mg/dL Urine Ketones NEGATIVE NEGATIVE mg/dL Urine Occult Blood SMALL H NEGATIVE Urine Nitrate NEGATIVE NEGATIVE Urine Bilirubin NEGATIVE NEGATIVE mg/dL Urine Urobilinogen 0.2 0.2-1.0 mg/dL Urine Leukocyte Esterase NEGATIVE NEGATIVE Sana/uL Urine RBC 2-5 H 0-1 /HPF Urine WBC 2-5 H 0-1 /HPF Urine Bacteria None None Seen /HPF Urine Random Creatinine 92.31 30-135 mg/dL Urine Random Sodium 14 L 40-220 mmol/l Urine Opiates Screen NEGATIVE NEGATIVE Urine Barbiturates Screen NEGATIVE NEGATIVE Urine Phencyclidine Screen NEGATIVE NEGATIVE Urine Amphetamines Screen NEGATIVE NEGATIVE Urine Benzodiazepines Screen NEGATIVE NEGATIVE Urine Cocaine Screen NEGATIVE NEGATIVE Urine Marijuana (THC) Screen NEGATIVE NEGATIVE Platelet Morphology Comment See comments Total Bilirubin 0.5 0.2-1.0 mg/dL Aspartate Amino Transf (AST/SGOT) 58 H 10-37 U/L Alanine Aminotransferase (ALT/SGPT) 39 12-78 U/L Alkaline Phosphatase 232 H 50-136 U/L Ammonia 79 H 11-32 umol/L Total Protein 5.9 L 6.0-8.3 g/dL Albumin 2.0 L 3.5-5.0 g/dL Acetaminophen Level 2 L 10-29 mcg/mL Serum Alcohol < 3 0-10 mg/dL Current Medications Medications (Trade) Dose Ordered Sig/Abdiel Route PRN Reason Start Time Stop Time Status Last Admin Dose Admin Acetaminophen (TYLenol 325MG TAB) 650 mg Q4H PRN PO MILD PAIN (1-3) 05/09/25 01:30 06/08/25 01:29 Hydralazine HCl (APRESOLine 20MG INJ) 10 mg Q6H PRN IV For:SBP above 160;DBP above 90 05/09/25 01:30 06/08/25 01:29 Lactulose (Constulose 20gm/ 30ml Udcup) 20 gm BID PO 05/09/25 09:00 06/08/25 08:59 05/09/25 09:13 20 GM Morphine Sulfate (morPHINE 2MG SYG) 2 mg Q4H PRN IVP SEVERE PAIN (7-10) 05/09/25 01:30 05/16/25 01:29 Ondansetron HCl (zoFRAN 4MG INJ) 4 mg Q6H PRN IV NAUSEA/VOMITING 05/09/25 01:30 06/08/25 01:29 Pantoprazole Sodium (PROTonix 40MG TAB) 40 mg DAILY PO 05/09/25 09:00 06/08/25 08:59 05/09/25 09:13 40 MG DIAGNOSTICS / RADIOLOGY: [ ] ASSESSMENT: [Metabolic encephalopathy, POA Uremia, POA Acute kidney injury, POA creatinine from 03/29/2025 which was 2.1, today it is 2.5. Hepatic encephalopathy, POA Pancytopenia, POA Liver cirrhosis, POA ] PLAN: [ continue to medical floor as inpatient status. Fall precautions. Check urine sodium, creatinine, osmolality Avoid nephrotoxic agents when possible Renally dose all medications when possible Consider consulting Nephrology service if any worsening renal function or evidence of ATN. Monitor patient's labs. Weight patient daily. Monitor intake and output. Fluid restriction 1500 mL daily continue Lactulose 20 g/30 mL by mouth twice daily Avoid anticoagulation during this hospitalization. GI prophylaxis, Protonix DVT prophylaxis, Gokul's and SCDs] pt chest xr pending ATTESTATION BY PHYSICIAN I have seen and examined the patient. I reviewed the documentation, medical decision making, and treatment plan as noted by the mid-level provider above. I agree with the findings and plan of care. JERMAN DAO MD, KATARZYNA B [employer]URANT MANAGER May 09, 2025 12:39
--- NOTE | 2025-05-09 16:46 | HMCIMG ---
EXAM: CR Chest, 1 View. CLINICAL HISTORY: congestion pna COMPARISON: X-ray chest 03/26/2025 FINDINGS: LUNGS: There is no mass, infiltrate, or acute pulmonary abnormality. PLEURAL SPACES: No evidence of pleural effusion or pneumothorax. MEDIASTINUM: The cardiomediastinal silhouette is within normal limits. BONES: No acute osseous abnormality. IMPRESSION: No acute cardiopulmonary pathology is evident. No significant change /[place]
[2025-05-10 04:00] VITALS: BP 144/56; PULSE 73; RESP 17; TEMP 98.2
[2025-05-10 04:46] LABS: IMMATURE GRANULOCYTE ABSOLUTE 0.01 K/uL (0-1); NUCLEATED RED BLOOD CELLS 0.0 % (0.0-0.19); PLATELET COUNT (AUTO) 65 K/uL (130-400); RED BLOOD CELL COUNT(AUTO) 2.02 MIL/uL (4.50-6.20); RED CELL DISTRIBUTION WIDTH 15.1 % (11.0-15.5); WHITE BLOOD COUNT (AUTO) 2.8 K/uL (4.8-10.8)
[2025-05-10 04:56] LABS: ASPARTATE AMINOTRANSFERASE 46.0 U/L (10-37); CREATININE 2.3 mg/dL (0.5-1.3); GLOMERULAR FILTR. RATE CALC 31.0 mL/min (>90); GLUCOSE,RANDOM 108.0 mg/dL (70-105); SODIUM SERUM 149.0 mmol/L (136-145); TOTAL PROTEIN, SERUM 5.1 g/dL (6.0-8.3); UREA NITROGEN, BLOOD 56.0 mg/dL (7-18)
--- NOTE | 2025-05-10 05:03 | NUR ---
HGB 6.7 AND HCT 20.0 CALL PLACED TO HOSPITALIST TO REPORT HGB 6.7 AND HCT 20.0. USAMA BOO CALLED BACK. NEW ORDERS RECEIVED AND CARRIED OUT. PRIMARY NURSEWILMA LVN AWARE. Addendum: 05/10/25 at 0505 by RUSLAN MILTON RN RN Amended: Links added.
--- NOTE | 2025-05-10 05:27 | NUR ---
CALL PLACED TO HOSPITALIST TARIFF PUBLISHING AGENT TO REPORT CRITICAL LAB RESULTS, PENDING CALL BACK FROM RAVI DELUCA NP.
[2025-05-10 05:29] LABS: BAND NEUTROPHILS % (MANUAL) 2 % (0-2); BASOPHILS % (MANUAL) 2 % (0-2); EOSINOPHILS % (MANUAL) 12 % (1-6); LYMPHOCYTES % (MANUAL) 19 % (22-44); MONOCYTES % (MANUAL) 6 % (2-9); REACTIVE LYMPHOCYTES 1 % (0-0); SEGMENTED NEUTROPHILS % 58 % (40-70)
[2025-05-10 05:30] LABS: MAN.DIFF COMMENT-IMPRESSION MANUAL DIF; WBC MORPHOLOGY REACTIVE LYMPHS 1+
[2025-05-10 05:31] LABS: PLATELET MORPHOLOGY COMMENT DECREASED
--- NOTE | 2025-05-10 06:02 | NUR ---
CRITICAL LABS RAVI VALLEJO MADE AWARE OF CRITICAL LABS AMMONIA 202, CHLORIDE 122, N/O REPEAT AMMONIA AT 0700.
[2025-05-10] MEDS: LACTULOSE 20 GM/30 ML UDCUP PO SCH ×2 (07:00→13:29)
[2025-05-10 07:39] VITALS: BP 150/70; PULSE 68; RESP 18; TEMP 98
[2025-05-10 08:21] VITALS: O2SAT 99
--- NOTE | 2025-05-10 09:04 | NUR ---
went to administer medication. at bedside stated she already gave am dose of lactulose. teaching done re: not to be administering home meds and to take home meds home with her. also instructed as per policy home meds at bedside will be taken to pharmacy
[2025-05-10 11:30] VITALS: BP 158/72; PULSE 74; RESP 18; TEMP 98.4
--- NOTE | 2025-05-10 11:53 | PN ---
[facility] PROGRESS NOTE Date of Service: May 10, 2025 Time of Service: 11:[address] Dao SUBJECTIVE: [ 05/08 Patient's reports that she brought the patient to the emergency department with a chief complaint of altered mental status. Onset was yesterday at 1800. Location is head. Duration is constant. Character is described as delayed speech. There was no alleviating factors. There was no aggravating factors. Patient reports multiple episodes in the last three months secondary to patient's liver cirrhosis. Today in the emergency department WBCs 3.4, hemoglobin 7.6, hematocrit 23.0, platelets 66, creatinine 2.5, BUN 62, alkaline phosphatase 232, ammonia 79, urinalysis unremarkable, toxicology unremarkable. Emergency room physician recommended patient be admitted with a diagnosis of encephalopathy. 05/09 was seen by nurse practitioner and physician during rounding in room 332. Patient's ammonia level today is 79. Patient is more alert and oriented. Family members/ at the bedside. CT head brain was negative. Creatinine has improved and compared to the previous admission is about stable. We will order chest x-ray and physical therapy. UA negative for leukocytosis. We will continue to monitor patient in the meantime. A.m. lab 05/10 patient was seen by nurse practitioner and physician during rounding in room 332. Patient has some psoriasis on his side back. Benadryl was ordered. Patient's hemoglobin today was 6.7 repeat seven. We will repeat CBC later afternoon and if hemoglobin we will be less than seven we will transfuse one PRBC, no repeat CBC, just transfuse place. Occult blood was ordered. Iron panel was ordered as well and we placed patient on fluids 0.9 at 75 mL/hour. Today ammonia was also elevated we switch lactulose from 20 mL t.i.d. to 45 mL t.i.d. patient is pending PT. We also consulted Nephrology for worsening renal function. We will continue to monitor patient in the meantime. A.m. labs] REVIEW OF SYSTEMS CONSTITUTIONAL: Denies fevers, chills, or night sweats. No unintentional weight loss reported. NEUROLOGICAL: Denies headache, amaurosis fugax, motor weakness, sensory deficit, vertigo/spinning sensation, gait abnormalities, or tremors. ENT: No hearing loss, otalgia, otorrhea, rhinitis, rhinorrhea, hoarseness, or sore throat. CARDIOVASCULAR: Denies any exertional angina, dyspnea on exertion, orthopnea, paroxysmal nocturnal dyspnea, palpitations, life-threatening arrhythmias, claudication. PULMONARY: Denies any shortness of breath, cough, phlegm/sputum, hemoptysis, pleuritic chest pain. SLEEP: Denies morning headaches, daytime somnolence or napping. Denies difficulty falling asleep, staying asleep, waking from sleep. Denies knowledge of snoring. GASTROINTESTINAL: Denies any type of dysphagia to either liquids or solids. Denies nausea, vomiting, pyrosis, early satiety, abdominal pain, diarrhea, constipation, or changes in stool consistency or caliber. Denies coffee-ground emesis, hematemesis, hematochezia, or melanotic stools. GENITOURINARY: Denies frequency, urgency, nocturia, hematuria or incontinence (Storage/Irritative symptoms.) Low urinary stream, straining to void, urinary intermittency or hesitancy, splitting of the voiding stream, terminal dribbling. ENDOCRINOLOGIC: Denies polyuria, polydipsia, polyphagia or heat/cold intolerances. HEMATOLOGIC: Denies thrombophilia/previous clots, or coagulopathy/bleeding disorders. ONCOLOGIC: Denies personal history of malignancy. DERMATOLOGIC: Denies rashes or pruritus. PSYCHIATRIC: Denies any suicidal or homicidal ideation. Denies hallucinations. PHYSICAL EXAM GENERAL APPEARANCE: The patient is awake, alert, and oriented, in no acute cardiopulmonary distress. NEUROLOGICAL: Cranial nerves II-XII grossly intact. Motor is 5/5 in bilateral upper and lower extremities proximal to distal. No sensory deficits. HEENT: Face is symmetric. Pupils are equal and reactive. Extraocular movements are intact. NECK: Supple. No JVD. No thyromegaly. No submental, submandibular, pre-/postauricular, occipital or supraclavicular lymphadenopathy. CHEST: Normal chest expansion. No Telemetry. LUNGS: Absence of any rales, rhonchi or any wheezing. CARDIOVASCULAR: Regular. S1 and S2 normal. No appreciable rubs, murmurs or gallops. ABDOMEN: Soft, nontender, and nondistended. There is no rebound, voluntary guarding, or rigidity. : Deferred. No Kelly. EXTREMITIES: Non-edematous and not cyanotic. No clubbing. Good capillary refill. SKIN: No skin breakdown. Vital Signs (last 8hr) Date Time Temp Pulse Resp B/P (MAP) Pulse Ox O2 Delivery O2 Flow Rate FiO2 05/10/25 11:30 98.4 74 18 158/72 98 Room Air 05/10/25 08:21 99 Room Air* 0 21 05/10/25 07:39 98.1 68 18 150/70 99 Room Air 05/10/25 04:00 98.2 73 17 144/56 98 Room Air LABS: Laboratory: Test 05/10/25 07:21 05/10/25 04:15 05/09/25 05:25 05/08/25 23:33 Range/Units Hemoglobin 7.0 *L 14.0-18.0 g/dL Hematocrit 21.0 *L 42-54 % Ammonia 107 H 11-32 umol/L White Blood Count 2.8 L 4.8-10.8 K/uL Red Blood Count 2.02 L 4.50-6.20 MIL/uL Mean Corpuscular Volume 99.0 79-99 fL Mean Corpuscular Hemoglobin 33.2 H 27.0-33.0 pg Mean Corpuscular Hemoglobin Concent 33.5 32.0-36.0 g/dL Red Cell Distribution Width 15.1 11.0-15.5 % Platelet Count 65 L 130-400 K/uL Mean Platelet Volume 13.3 H 7.5-10.5 fL Immature Granulocyte % (Auto) 0.4 0-1 % Neutrophils (%) (Auto) 52.7 40.0-77.0 % Lymphocytes (%) (Auto) 26.8 21.0-51.0 % Monocytes (%) (Auto) 9.3 3.0-13.0 % Eosinophils (%) (Auto) 10.4 H 0.0-8.0 % Basophils (%) (Auto) 0.4 0.0-5.0 % Neutrophils # (Auto) 1.5 L 1.8-7.7 K/uL Lymphocytes # (Auto) 0.8 L 1.0-4.8 K/uL Monocytes # (Auto) 0.3 0.1-1.0 K/uL Eosinophils # (Auto) 0.29 0.00-0.70 K/uL Basophils # (Auto) 0.01 0.00-0.20 K/uL Absolute Immature Granulocyte (auto 0.01 0-1 K/uL Segmented Neutrophils % 58 40-70 % Band Neutrophils % 2 0-2 % Lymphocytes % (Manual) 19 L 22-44 % Monocytes % (Manual) 6 2-9 % Eosinophils % (Manual) 12 H 1-6 % Basophils % (Manual) 2 0-2 % Nucleated Red Blood Cells 0.0 0.0-0.19 % Differential Comment MANUAL DIF Reactive Lymphocytes 1 H 0-0 % White Cell Morphology Comment REACTIVE LYMPHS 1+ Platelet Morphology Comment DECREASED Red Blood Cell Morphology See comments Sodium Level 149 H 136-145 mmol/L Potassium Level 4.5 3.5-5.1 mmol/L Chloride Level 122 *H 101-111 mmol/L Carbon Dioxide Level 14 L 21-32 mmol/L Blood Urea Nitrogen 56 H 7-18 mg/dL Creatinine 2.3 H 0.5-1.3 mg/dL Glomerular Filtration Rate Calc 31 >90 mL/min Random Glucose 108 H 70-105 mg/dL Total Calcium 8.2 L 8.5-10.1 mg/dL Magnesium Level 2.40 1.80-2.40 mg/dL Total Bilirubin 0.5 0.2-1.0 mg/dL Aspartate Amino Transf (AST/SGOT) 46 H 10-37 U/L Alanine Aminotransferase (ALT/SGPT) 33 12-78 U/L Alkaline Phosphatase 182 H 50-136 U/L Total Protein 5.1 L 6.0-8.3 g/dL Albumin 1.8 L 3.5-5.0 g/dL Phosphorus Level 4.0 2.5-4.9 mg/dL Urine Color LIGHT-YELLOW YELLOW Urine Appearance CLEAR CLEAR Urine pH 6.0 5.0-8.0 Urine Specific [place] 1.013 1.001-1.031 Urine Protein 300 H NEGATIVE mg/dL Urine Glucose (UA) NEGATIVE NEGATIVE mg/dL Urine Ketones NEGATIVE NEGATIVE mg/dL Urine Occult Blood SMALL H NEGATIVE Urine Nitrate NEGATIVE NEGATIVE Urine Bilirubin NEGATIVE NEGATIVE mg/dL Urine Urobilinogen 0.2 0.2-1.0 mg/dL Urine Leukocyte Esterase NEGATIVE NEGATIVE Sana/uL Urine RBC 2-5 H 0-1 /HPF Urine WBC 2-5 H 0-1 /HPF Urine Bacteria None None Seen /HPF Urine Random Creatinine 92.31 30-135 mg/dL Urine Random Sodium 14 L 40-220 mmol/l Urine Opiates Screen NEGATIVE NEGATIVE Urine Barbiturates Screen NEGATIVE NEGATIVE Urine Phencyclidine Screen NEGATIVE NEGATIVE Urine Amphetamines Screen NEGATIVE NEGATIVE Urine Benzodiazepines Screen NEGATIVE NEGATIVE Urine Cocaine Screen NEGATIVE NEGATIVE Urine Marijuana (THC) Screen NEGATIVE NEGATIVE Test 05/08/25 22:38 Range/Units Acetaminophen Level 2 L 10-29 mcg/mL Serum Alcohol < 3 0-10 mg/dL Current Medications Medications (Trade) Dose Ordered Sig/Abdiel Route PRN Reason Start Time Stop Time Status Last Admin Dose Admin Acetaminophen (TYLenol 325MG TAB) 650 mg Q4H PRN PO MILD PAIN (1-3) 05/09/25 01:30 06/08/25 01:29 Hydralazine HCl (APRESOLine 20MG INJ) 10 mg Q6H PRN IV For:SBP above 160;DBP above 90 05/09/25 01:30 06/08/25 01:29 Lactulose (Constulose 20gm/ 30ml Udcup) 20 gm BID PO 05/09/25 09:00 05/10/25 06:41 DC 05/09/25 20:51 20 GM Lactulose (Constulose 20gm/ 30ml Udcup) 20 gm TID PO 05/10/25 07:00 05/10/25 11:48 DC Lactulose (Constulose 20gm/ 30ml Udcup) 45 gm TID PO 05/10/25 14:00 06/09/25 13:59 UNV Morphine Sulfate (morPHINE 2MG SYG) 2 mg Q4H PRN IVP SEVERE PAIN (7-10) 05/09/25 01:30 05/16/25 01:29 Ondansetron HCl (zoFRAN 4MG INJ) 4 mg Q6H PRN IV NAUSEA/VOMITING 05/09/25 01:30 06/08/25 01:29 Pantoprazole Sodium (PROTonix 40MG TAB) 40 mg DAILY PO 05/09/25 09:00 06/08/25 08:59 05/10/25 09:02 40 MG Sodium Chloride 1,000 ml @ 75 mls/hr [id number] IV 05/10/25 12:00 06/09/25 11:59 UNV DIAGNOSTICS / RADIOLOGY: [ ] ASSESSMENT: [Metabolic encephalopathy, POA Uremia, POA Acute blood loss unknown origin POA Multifactorial anemia POA Psoriasis POA Acute kidney injury, POA creatinine from 03/29/2025 which was 2.1, today it is 2.5. Hepatic encephalopathy, POA Pancytopenia, POA Liver cirrhosis, POA ] PLAN: [ Nephrology consultation Continue 0.9 at 75 mL/hour Repeat CBC if hemoglobin less than seven, at 8:00 p.m. transfuse one PRBC Iron panel ordered Occult blood ordered Increase lactulose from 20 mL to 45 mL t.i.d. continue to medical floor as inpatient status. Fall precautions. Check urine sodium, creatinine, osmolality Avoid nephrotoxic agents when possible Renally dose all medications when possible Consider consulting Nephrology service if any worsening renal function or evidence of ATN. Monitor patient's labs. Weight patient daily. Monitor intake and output. Fluid restriction 1500 mL daily continue Lactulose 20 g/30 mL by mouth twice daily Avoid anticoagulation during this hospitalization. GI prophylaxis, Protonix DVT prophylaxis, Gokul's and SCDs] pt ATTESTATION BY PHYSICIAN I have seen and examined the patient. I reviewed the documentation, medical decision making, and treatment plan as noted by the mid-level provider above. I agree with the findings and plan of care. JERMAN DAO MD, KATARZYNA B MORTGAGE COLLECTOR May 10, 2025 11:53
[2025-05-10] MEDS ORDERED: MAG/ALUM/SIMETH 30 ML UDCUP PO PRN (12:00)
[2025-05-10] MEDS ORDERED: guaiFENesin-DM 200/20MG 10ML PO PRN (12:00)
[2025-05-10] MEDS ORDERED: LACTULOSE 20 GM/30 ML UDCUP PO PRN (12:00)
[2025-05-10] MEDS ORDERED: FAMOTIDINE 20MG VIAL IV PRN (12:00)
[2025-05-10] MEDS ORDERED: NITROGLYCERIN 0.4 MG SL TAB SL PRN (12:00)
[2025-05-10 12:26] LABS: % IRON SATURATION 72.6 % (30-44); IRON, SERUM 130.0 mcg/dL (65-175)
[2025-05-10] MEDS: 0.9%NACL 1000ML 1,000 ML IV SCH (13:29)
[2025-05-10 14:15] LABS: ABG BASE EXCESS -12.7 mmol/L (-2.0-3.0); ABG HCO3 10.8 mmol/L (21.0-28.0); ABG OXYGEN SATURATION 98.4 % (94.0-98.0); ABG PCO2 21 mmHg (35-48); ABG PH 7.331 (7.350-7.450); DEVICE COMMENT RR; PO2, ARTERIAL BG 127.0 mmHg (83.0-108.0); TEMPERATURE, CELSIUS BG 37.0 CELSIUS (35.5-37.0); VENT MODE, BG RA (ROOM AIR)
--- NOTE | 2025-05-10 14:17 | HMCIMG ---
EXAMINATION: ULTRASOUND OF THE RETROPERITONEUM. CLINICAL HISTORY: FLY. COMPARISON: None provided. TECHNIQUE: Real-time grayscale and color ultrasound images of the kidneys. FINDINGS: The kidneys are normal in caliber; the right kidney measures 10.0 x 4.9 x 4.8 cm in its craniocaudal, AP, and transverse dimensions, and the left kidney measures 9.7 x 5.1 x 4.0 cm in its craniocaudal, AP, and transverse dimensions. There is normal renal cortical thickness and increased cortical echogenicity. There is no renal calculus. There is no hydronephrosis. The urinary bladder is normal in caliber and wall thickness (0.4 cm). There are no calculi in the urinary bladder. Incidentally noted, dilated splenic vein that measures 2.1 cm. IMPRESSION: Increased cortical echogenicity, may reflect renal parenchymal disease. Recommend clinical correlation and laboratory parameters. Dilated splenic vein may reflect aneurysm. Recommend contrast enhanced CT abdomen and pelvis. /[place]
--- NOTE | 2025-05-10 14:43 | CONS ---
NEPHROLOGY CONSULTATION NOTE Date/Time Patient Seen: May 10, 2025 1400 Reason for Consultation: Renal failure HISTORY OF PRESENT ILLNESS: This is a 65-year-old male with known history of cirrhosis of the liver was brought to the emergency room by his with complaints of confusion and disorientation. She indicated that he has been taking rifaximin for the past 10 days although he was recommended for 30 days. He has been in the hospital for several days He was noted with worsening renal failure We are consulted fo renal failure Renal function remains elevated Electrolytes are stable Imaging studies were noted Hemoglobin was noted. He was seen in the medical floor Family at the bedside Prognosis remains guarded REVIEW OF SYSTEMS: GENERAL: Negative for any nausea, vomiting, fevers, chills, or weight loss. NEUROLOGIC: Negative for any blurry vision, blind spots, double vision, facial asymmetry, dysphagia, dysarthria, hemiparesis, hemisensory deficits, vertigo, ataxia. HEENT: Negative for any head trauma, neck trauma, neck stiffness, photophobia, phonophobia, sinusitis, rhinitis. CARDIAC: Negative for any chest pain, dyspnea on exertion, paroxysmal nocturnal dyspnea, peripheral edema. PULMONARY: Negative for any shortness of breath, wheezing, COPD, or TB exposure. GASTROINTESTINAL: Negative for any abdominal pain, nausea, vomiting, bright red blood per rectum, melena. GENITOURINARY: Negative for any dysuria, hematuria, incontinence. INTEGUMENTARY: Negative for any rashes, cuts, insect bites. RHEUMATOLOGIC: Negative for any joint pains, photosensitive rashes, history of vasculitis or kidney problems. HEMATOLOGIC: Negative for any abnormal bruising, frequent infections or bleeding. PAST MEDICAL HISTORY: Liver cirrhosis PAST SURGICAL HISTORY: Noncontributory PAST SOCIAL HISTORY: Denies use of alcohol, tobacco or illicit drugs FAMILY HISTORY: Noncontributory PHYSICAL EXAM: GENERAL: Alert and oriented x 3. No acute distress. Well-nourished. EYES: EOMI. Anicteric. HENT: Moist mucous membranes. No scleral icterus. No cervical lymphadenopathy. LUNGS: Clear to auscultation bilaterally. No accessory muscle use. CARDIOVASCULAR: Regular rate and rhythm. No murmur. No JVD. ABDOMEN: Soft, non-tender and non-distended. No palpable masses. EXTREMITIES: No edema. Non-tender. SKIN: No rashes or lesions. Warm. NEUROLOGIC: No focal neurological deficits. CN II-XII grossly intact, but not individually tested. PSYCHIATRIC: Cooperative. Appropriate mood and affect. MEDICATIONS: [ ] Current Medications Medications (Trade) Dose Ordered Sig/Abdiel Route PRN Reason Start Time Stop Time Status Last Admin Dose Admin Acetaminophen (TYLenol 325MG TAB) 650 mg Q4H PRN PO MILD PAIN (1-3) 05/09/25 01:30 06/08/25 01:29 Acetaminophen (TYLenol 325MG TAB) 650 mg Q4H PRN PO MILD PAIN (1-3) 05/10/25 12:00 06/09/25 11:59 Acetaminophen (TYLenol 325MG TAB) 650 mg Q6H PRN PO TEMPERATURE GREATER THAN 101.5 05/10/25 12:00 06/09/25 11:59 Al Hydroxide/Mg Hydroxide (MAALox PLUS 30ML) 30 ml Q6H PRN PO INDIGESTION 05/10/25 12:00 06/09/25 11:59 Albumin Human 50 ml @ 0 mls/hr Q8H5 IV 05/10/25 17:00 05/12/25 09:00 Diphenhydramine HCl (BENAdryl CAP) 25 mg Q4H PRN PO MILD ITCHING/RASH 05/10/25 12:00 06/09/25 11:59 Diphenhydramine HCl (BENAdryl INJ) 25 mg Q6H PRN IV SEVERE ITCHING/RASH 05/10/25 12:00 06/09/25 11:59 05/10/25 13:30 25 MG Famotidine (Pepcid 20mg Vial) 20 mg BID IV 05/10/25 21:00 06/09/25 20:59 UNV Famotidine (Pepcid 20mg Vial) 20 mg BID PRN IV NAUSEA/VOMITING 05/10/25 12:00 06/09/25 11:59 UNV Guaifenesin/ Dextromethorphan (RobiTUSSin DM 200/20MG 10ML) 10 ml Q4H PRN PO COUGH 05/10/25 12:00 06/09/25 11:59 Hydralazine HCl (APRESOLine 20MG INJ) 10 mg Q6H PRN IV For:SBP above 160;DBP above 90 05/09/25 01:30 06/08/25 01:29 Hydralazine HCl (APRESOLine 20MG INJ) 10 mg Q6H PRN IV For:SBP above 160;DBP above 90 05/10/25 12:00 06/09/25 11:59 UNV Lactulose (Constulose 20gm/ 30ml Udcup) 20 gm BID PO 05/09/25 09:00 05/10/25 06:41 DC 05/09/25 20:51 20 GM Lactulose (Constulose 20gm/ 30ml Udcup) 20 gm BID PRN PO CONSTIPATION 05/10/25 12:00 06/09/25 11:59 Lactulose (Constulose 20gm/ 30ml Udcup) 20 gm TID PO 05/10/25 07:00 05/10/25 11:48 DC Lactulose (Constulose 20gm/ 30ml Udcup) 45 gm TID PO 05/10/25 14:00 06/09/25 13:59 05/10/25 13:29 45 GM Morphine Sulfate (morPHINE 2MG SYG) 2 mg Q4H PRN IVP SEVERE PAIN (7-10) 05/09/25 01:30 05/16/25 01:29 Nitroglycerin (Nitrostat) 0.4 mg PROTOCOL PRN SL CHEST PAIN 05/10/25 12:00 06/09/25 11:59 Ondansetron HCl (zoFRAN 4MG INJ) 4 mg Q6H PRN IV NAUSEA/VOMITING 05/09/25 01:30 06/08/25 01:29 Ondansetron HCl (zoFRAN 4MG INJ) 4 mg Q6H PRN IV NAUSEA/VOMITING 05/10/25 12:00 06/09/25 11:59 UNV Pantoprazole Sodium (PROTonix 40MG TAB) 40 mg DAILY PO 05/09/25 09:00 06/08/25 08:59 05/10/25 09:02 40 MG Sodium Chloride 1,000 ml @ 75 mls/hr [id number] IV 05/10/25 12:00 06/09/25 11:59 05/10/25 13:29 75 MLS/HR Thiamine HCl (Vitamin B-1) 100 mg DAILY PO 05/11/25 09:00 06/10/25 08:59 Zolpidem Tartrate (AmbIEN) 5 mg HS PRN PO INSOMNIA 05/10/25 12:00 06/09/25 11:59 Vital Signs (last 8hr) Date Time Temp Pulse Resp B/P (MAP) Pulse Ox O2 Delivery O2 Flow Rate FiO2 05/10/25 11:30 98.4 74 18 158/72 98 Room Air 05/10/25 08:21 99 Room Air* 0 21 05/10/25 07:39 98.1 68 18 150/70 99 Room Air DIAGNOSTICS / RADIOLOGY: [place] [id number] [address] IMAGING REPORT Signed PATIENT: KEVIN REINOSO MR#: [id number] : 1960 SEX: M AGE: 65 LOCATION: [facility] ORDER 4 STATUS: ADM IN REPORT#: [id number] SERVICE REASON: fly ORDERING PHYSICIAN: MARGARITO PRASAD APRN PROCEDURE: RENAL - US RENAL SONOGRAM EXAMINATION: ULTRASOUND OF THE RETROPERITONEUM. CLINICAL HISTORY: FLY. COMPARISON: None provided. TECHNIQUE: Real-time grayscale and color ultrasound images of the kidneys. FINDINGS: The kidneys are normal in caliber; the right kidney measures 10.0 x 4.9 x 4.8 cm in its craniocaudal, AP, and transverse dimensions, and the left kidney measures 9.7 x 5.1 x 4.0 cm in its craniocaudal, AP, and transverse dimensions. There is normal renal cortical thickness and increased cortical echogenicity. There is no renal calculus. There is no hydronephrosis. The urinary bladder is normal in caliber and wall thickness (0.4 cm). There are no calculi in the urinary bladder. Incidentally noted, dilated splenic vein that measures 2.1 cm. IMPRESSION: Increased cortical echogenicity, may reflect renal parenchymal disease. Recommend clinical correlation and laboratory parameters. Dilated splenic vein may reflect aneurysm. Recommend contrast enhanced CT abdomen and pelvis. /Ben Bolt DICTATED BY: CARI HERRING Jr., MD DATE: 05/10/251515 ELECTRONICALLY SIGNED BY: CARI HERRING Jr., MD DATE: 05/10/251515 PATIENT: KEVIN REINOSO MR#: [id number] : 1960 SEX: M AGE: 65 LOCATION: [facility] ORDER 1234 STATUS: ADM IN REPORT#: [id number] SERVICE 1233 REASON: congestion pna ORDERING PHYSICIAN: MARGARITO PRASAD APRN PROCEDURE: CXR1VW - CHEST 1VW EXAM: CR Chest, 1 View. CLINICAL HISTORY: congestion pna COMPARISON: X-ray chest 03/26/2025 FINDINGS: LUNGS: There is no mass, infiltrate, or acute pulmonary abnormality. PLEURAL SPACES: No evidence of pleural effusion or pneumothorax. MEDIASTINUM: The cardiomediastinal silhouette is within normal limits. BONES: No acute osseous abnormality. IMPRESSION: No acute cardiopulmonary pathology is evident. No significant change /Ben Bolt DICTATED BY: TRAVIS SHEIKH MD DATE: 05/09/251744 ELECTRONICALLY SIGNED BY: TRAVIS SHEIKH MD DATE: 05/09/251744 PATIENT: KEVIN REINOSO MR#: [id number] : 1960 SEX: M AGE: 65 [facility] 10 STATUS: ADM IN REPORT#: [id number] SERVICE 09 REASON: confusion AMS ORDERING PHYSICIAN: ASHLEY MORGAN MD PROCEDURE: HEAD WO - CT HEAD/BRAIN W/O CONTRAST EXAM: Non-contrast CT examination of the Brain CLINICAL HISTORY: Confusion. Altered mental status. TECHNIQUE: Thin collimated axial CT images of the brain were obtained, with sagittal and coronal reformatted images also submitted. CT scan done according to ALARA (As Low as Reasonably Achievable). CONTRAST USED: None. COMPARISON: Prior CT brain dated 03/26/25. FINDINGS: No acute intracranial abnormality is present. No acute cortical infarction, hemorrhage, mass, or mass effect. Small, ill-defined hypodensities in the bilateral cerebral white matter suggest mild chronic ischemic changes secondary to small vessel disease. Mild to moderate generalized cerebral atrophy, more for the given age. No hydrocephalus or abnormal extra-axial fluid collections. The posterior fossa is unremarkable. The skull base and calvarium are intact. The included portions of the paranasal sinuses and mastoid air cells are clear. IMPRESSION: No acute intracranial abnormality is present. Mild chronic ischemic changes secondary to small vessel disease. Mild to moderate generalized cerebral atrophy, more for the given age. No significant interval changes. /Ben Bolt DICTATED BY: CARI HERRING Jr., MD DATE: 05/09/25147 ELECTRONICALLY SIGNED BY: CARI HERRING Jr., MD DATE: 05/09/25147 LABORATORY: [ ] Hematology Labs: Test 05/10/25 07:21 05/10/25 04:15 Range/Units Hemoglobin 7.0 *L 14.0-18.0 g/dL Hematocrit 21.0 *L 42-54 % White Blood Count 2.8 L 4.8-10.8 K/uL Red Blood Count 2.02 L 4.50-6.20 MIL/uL Mean Corpuscular Volume 99.0 79-99 fL Mean Corpuscular Hemoglobin 33.2 H 27.0-33.0 pg Mean Corpuscular Hemoglobin Concent 33.5 32.0-36.0 g/dL Red Cell Distribution Width 15.1 11.0-15.5 % Platelet Count 65 L 130-400 K/uL Mean Platelet Volume 13.3 H 7.5-10.5 fL Immature Granulocyte % (Auto) 0.4 0-1 % Neutrophils (%) (Auto) 52.7 40.0-77.0 % Lymphocytes (%) (Auto) 26.8 21.0-51.0 % Monocytes (%) (Auto) 9.3 3.0-13.0 % Eosinophils (%) (Auto) 10.4 H 0.0-8.0 % Basophils (%) (Auto) 0.4 0.0-5.0 % Neutrophils # (Auto) 1.5 L 1.8-7.7 K/uL Lymphocytes # (Auto) 0.8 L 1.0-4.8 K/uL Monocytes # (Auto) 0.3 0.1-1.0 K/uL Eosinophils # (Auto) 0.29 0.00-0.70 K/uL Basophils # (Auto) 0.01 0.00-0.20 K/uL Absolute Immature Granulocyte (auto 0.01 0-1 K/uL Segmented Neutrophils % 58 40-70 % Band Neutrophils % 2 0-2 % Lymphocytes % (Manual) 19 L 22-44 % Monocytes % (Manual) 6 2-9 % Eosinophils % (Manual) 12 H 1-6 % Basophils % (Manual) 2 0-2 % Nucleated Red Blood Cells 0.0 0.0-0.19 % Differential Comment MANUAL DIF Reactive Lymphocytes 1 H 0-0 % White Cell Morphology Comment REACTIVE LYMPHS 1+ Platelet Morphology Comment DECREASED Red Blood Cell Morphology See comments Chemistry Labs: Test 05/10/25 07:21 05/10/25 04:15 05/09/25 05:25 Range/Units Iron Level 130 # 65-175 mcg/dL Total Iron Binding Capacity 179 L 250-450 mcg/dL Percent Iron Saturation 72.6 H 30-44 % Ammonia 107 H 11-32 umol/L Sodium Level 149 H 136-145 mmol/L Potassium Level 4.5 3.5-5.1 mmol/L Chloride Level 122 *H 101-111 mmol/L Carbon Dioxide Level 14 L 21-32 mmol/L Blood Urea Nitrogen 56 H 7-18 mg/dL Creatinine 2.3 H 0.5-1.3 mg/dL Glomerular Filtration Rate Calc 31 >90 mL/min Random Glucose 108 H 70-105 mg/dL Total Calcium 8.2 L 8.5-10.1 mg/dL Magnesium Level 2.40 1.80-2.40 mg/dL Total Bilirubin 0.5 0.2-1.0 mg/dL Aspartate Amino Transf (AST/SGOT) 46 H 10-37 U/L Alanine Aminotransferase (ALT/SGPT) 33 12-78 U/L Alkaline Phosphatase 182 H 50-136 U/L Total Protein 5.1 L 6.0-8.3 g/dL Albumin 1.8 L 3.5-5.0 g/dL Phosphorus Level 4.0 2.5-4.9 mg/dL ASSESSMENT: Acute on chronic renal failure Anemia Metabolic encephalopathy Psoriasis Hepatic encephalopathy Pancytopenia Liver cirrhosis PLAN: Labs, diagnostic, radiologic exams reviewed and interpreted by myself and supervising physician. We have reviewed external records in detail Obtain UA, urine electrolytes, urine creatinine, urine osmolality and complete renal ultrasound Start Nephro-Brittny and thiamine. Start [id number] g IV q.8 hours x6 doses Require close monitoring of renal function and electrolytes Order CBC, CMP,and electrolytes in am BiPAP as necessary, for respiratory distress Monitor blood pressure adjust medication doses as needed Avoid hypotensive episodes May use Dilaudid 0.5 mg IV every 6 hours as needed for severe pain Monitor blood sugars Strict intake, output, and daily weight should be monitored Please renally adjust medications Avoid nephrotoxic and nonsteroidal drugs Avoid contrast if possible Will continue to monitor renal function, anemia, electrolytes Treatment plan discussed with patient Questions were answered We have discussed with the other team physicians in detail about the care plan We will continue to monitor the patient closely Thank you for allowing us to participate in the care of this patient ATTESTATION BY PHYSICIAN I have seen and examined the patient. I reviewed the documentation, medical decision making, and treatment plan as noted by the mid-level provider above. I agree with the findings and plan of care. JENNY SAENZ MD, [facility], [place] May 10, 2025 14:43
[2025-05-10 15:59] VITALS: BP 156/72; PULSE 68; RESP 18; TEMP 98
[2025-05-10 16:48] LABS: NUCLEATED RED BLOOD CELLS 0.0 % (0.0-0.19); PLATELET COUNT (AUTO) 64 K/uL (130-400); RED BLOOD CELL COUNT(AUTO) 2.13 MIL/uL (4.50-6.20); RED CELL DISTRIBUTION WIDTH 15.4 % (11.0-15.5); WHITE BLOOD COUNT (AUTO) 3.1 K/uL (4.8-10.8)
[2025-05-10 17:11] LABS: BAND NEUTROPHILS % (MANUAL) 2 % (0-2); BASOPHILS % (MANUAL) 1 % (0-2); EOSINOPHILS % (MANUAL) 7 % (1-6); LYMPHOCYTES % (MANUAL) 19 % (22-44); MONOCYTES % (MANUAL) 13 % (2-9); SEGMENTED NEUTROPHILS % 58 % (40-70)
[2025-05-10 17:12] LABS: MAN.DIFF COMMENT-IMPRESSION MANUAL DIFFERENTIAL; PLATELET MORPHOLOGY COMMENT DECREASED; WBC MORPHOLOGY SLIDE REVIEWED
[2025-05-10] MEDS: Vitamin B Complex/Vit C/Folic Acid PO ONE (17:47)
[2025-05-10] MEDS: ALBUMIN (HUMAN) 25% 50 ML IV SCH (17:48)
[2025-05-10 19:38] VITALS: BP 139/69; PULSE 71; RESP 16; TEMP 97.4
[2025-05-10] MEDS ORDERED: FAMOTIDINE 20MG VIAL IV SCH (21:00)
[2025-05-10 21:46] LABS: CREATININE,URINE RANDOM 67.72 mg/dL (30-135)
[2025-05-11] VITALS (9 sets, daily range): BP systolic 141–158; BP diastolic 52–76; PULSE 69–101; RESP 12–20; TEMP 97.8–98.4; O2SAT 98
[2025-05-11 04:13] LABS: NUCLEATED RED BLOOD CELLS 0.0 % (0.0-0.19); PLATELET COUNT (AUTO) 50 K/uL (130-400); RED BLOOD CELL COUNT(AUTO) 1.89 MIL/uL (4.50-6.20); RED CELL DISTRIBUTION WIDTH 15.4 % (11.0-15.5); WHITE BLOOD COUNT (AUTO) 2.5 K/uL (4.8-10.8)
--- NOTE | 2025-05-11 04:18 | NUR ---
PLACED CALL TO HOSPITALIST [employer] MADE [address]AVI [address] [employer] AWARE OF HGB 6.3, HCT 18.9, PER RAVI HE WILL ENTER TRANSFUSION ORDER.
[2025-05-11 04:29] LABS: ASPARTATE AMINOTRANSFERASE 45.0 U/L (10-37); CREATININE 2.1 mg/dL (0.5-1.3); GLOMERULAR FILTR. RATE CALC 35.0 mL/min (>90); GLUCOSE,RANDOM 102.0 mg/dL (70-105); PHOSPHORUS 3.9 mg/dL (2.5-4.9); SODIUM SERUM 151.0 mmol/L (136-145); TOTAL PROTEIN, SERUM 5.1 g/dL (6.0-8.3); UREA NITROGEN, BLOOD 53.0 mg/dL (7-18)
[2025-05-11 04:49] LABS: EOSINOPHILS % (MANUAL) 13 % (1-6); LYMPHOCYTES % (MANUAL) 19 % (22-44); MONOCYTES % (MANUAL) 10 % (2-9); SEGMENTED NEUTROPHILS % 58 % (40-70)
[2025-05-11 04:50] LABS: MAN.DIFF COMMENT-IMPRESSION MANUAL DIFFERENTIAL; PLATELET MORPHOLOGY COMMENT DECREASED
[2025-05-11] MEDS: SODIUM BICARB 50MEQ 50ML VIAL IV ONE (08:00)
[2025-05-11] MEDS: THIAMINE HCL 100 MG TABLET PO SCH (09:57)
[2025-05-11] MEDS: SODIUM BICARBONATE 650 MG TAB PO SCH (09:57)
[2025-05-11] MEDS ORDERED: FURO40TA5 PO (11:20)
--- NOTE | 2025-05-11 12:36 | PN ---
[facility] PROGRESS NOTE Date of Service: May 11, 2025 Time of Service: 12:29 SUBJECTIVE: [ 05/08 Patient's reports that she brought the patient to the emergency department with a chief complaint of altered mental status. Onset was yesterday at 1800. Location is head. Duration is constant. Character is described as delayed speech. There was no alleviating factors. There was no aggravating factors. Patient reports multiple episodes in the last three months secondary to patient's liver cirrhosis. Today in the emergency department WBCs 3.4, hemoglobin 7.6, hematocrit 23.0, platelets 66, creatinine 2.5, BUN 62, alkaline phosphatase 232, ammonia 79, urinalysis unremarkable, toxicology unremarkable. Emergency room physician recommended patient be admitted with a diagnosis of encephalopathy. 05/09 was seen by nurse practitioner and physician during rounding in room 332. Patient's ammonia level today is 79. Patient is more alert and oriented. Family members/ at the bedside. CT head brain was negative. Creatinine has improved and compared to the previous admission is about stable. We will order chest x-ray and physical therapy. UA negative for leukocytosis. We will continue to monitor patient in the meantime. A.m. lab 05/10 patient was seen by nurse practitioner and physician during rounding in room 332. Patient has some psoriasis on his side back. Benadryl was ordered. Patient's hemoglobin today was 6.7 repeat seven. We will repeat CBC later afternoon and if hemoglobin we will be less than seven we will transfuse one PRBC, no repeat CBC, just transfuse place. Occult blood was ordered. Iron panel was ordered as well and we placed patient on fluids 0.9 at 75 mL/hour. Today ammonia was also elevated we switch lactulose from 20 mL t.i.d. to 45 mL t.i.d. patient is pending PT. We also consulted Nephrology for worsening renal function. We will continue to monitor patient in the meantime. A.m. labs] 05/11 patient with past medical history of liver cirrhosis, admitted with chief complaint of altered mental status, found to have anemia with a stool occult blood positive. patient has been upgraded to the PCU. At the time of my visit he walked out of the restroom, had a p.m., looks mildly dark, nonbloody. He is alert oriented x2, chronically ill-appearing, denies chest pain, shortness shortness for breath, no nausea, no vomiting, no abdominal discomfort. Blood pressure 145/52, afebrile, saturating normal on room air. Hemoglobin 6.3, hematocrit 18.9, WBC 2.5, platelet count of 50. Sodium 151, potassium 4.3, BUN 53, creatinine 2.1, bicarbonate of 14. Ammonia level 232. ABG pH of 7.33, pCO2 21, bicarbonate of 10.8. Stool occult blood positive. Patient to receive 1 unit of PRBC, follow CBC post transfusion. GI consultation requested, follow input and recommendation. Continue Protonix and octreotide drip. Continue lactulose, follow ammonia level in a.m.. We will give sodium bicarbonate IV 50 mEq. Start sodium bicarb tablets 650 mg p.o. q.i.d.. Nephro logy consultation requested, follow input and recommendation. REVIEW OF SYSTEMS CONSTITUTIONAL: Denies fevers, chills, or night sweats. No unintentional weight loss reported. NEUROLOGICAL: Denies headache, amaurosis fugax, motor weakness, sensory deficit, vertigo/spinning sensation, gait abnormalities, or tremors. ENT: No hearing loss, otalgia, otorrhea, rhinitis, rhinorrhea, hoarseness, or sore throat. CARDIOVASCULAR: Denies any exertional angina, dyspnea on exertion, orthopnea, paroxysmal nocturnal dyspnea, palpitations, life-threatening arrhythmias, claudication. PULMONARY: Denies any shortness of breath, cough, phlegm/sputum, hemoptysis, pleuritic chest pain. SLEEP: Denies morning headaches, daytime somnolence or napping. Denies difficulty falling asleep, staying asleep, waking from sleep. Denies knowledge of snoring. GASTROINTESTINAL: Denies any type of dysphagia to either liquids or solids. Denies nausea, vomiting, pyrosis, early satiety, abdominal pain, diarrhea, constipation, or changes in stool consistency or caliber. Denies coffee-ground emesis, hematemesis, hematochezia, or melanotic stools. GENITOURINARY: Denies frequency, urgency, nocturia, hematuria or incontinence (Storage/Irritative symptoms.) Low urinary stream, straining to void, urinary intermittency or hesitancy, splitting of the voiding stream, terminal dribbling. ENDOCRINOLOGIC: Denies polyuria, polydipsia, polyphagia or heat/cold intolerances. HEMATOLOGIC: Denies thrombophilia/previous clots, or coagulopathy/bleeding disorders. ONCOLOGIC: Denies personal history of malignancy. DERMATOLOGIC: Denies rashes or pruritus. PSYCHIATRIC: Denies any suicidal or homicidal ideation. Denies hallucinations. PHYSICAL EXAM GENERAL APPEARANCE: The patient is awake, alert, and oriented, in no acute cardiopulmonary distress. NEUROLOGICAL: Cranial nerves II-XII grossly intact. Motor is 5/5 in bilateral upper and lower extremities proximal to distal. No sensory deficits. HEENT: Face is symmetric. Pupils are equal and reactive. Extraocular movements are intact. NECK: Supple. No JVD. No thyromegaly. No submental, submandibular, pre- /postauricular, occipital or supraclavicular lymphadenopathy. CHEST: Normal chest expansion. No Telemetry. LUNGS: Absence of any rales, rhonchi or any wheezing. CARDIOVASCULAR: Regular. S1 and S2 normal. No appreciable rubs, murmurs or gallops. ABDOMEN: Soft, nontender, and nondistended. There is no rebound, voluntary guarding, or rigidity. : Deferred. No Kelly. EXTREMITIES: Non-edematous and not cyanotic. No clubbing. Good capillary refill. SKIN: No skin breakdown. Vital Signs (last 8hr) Date Time Temp Pulse Resp B/P (MAP) Pulse Ox O2 Delivery O2 Flow Rate FiO2 05/11/25 12:11 98.1 74 18 145/52 100 Room Air 05/11/25 08:20 98.1 79 18 155/76 100 Room Air LABS: Laboratory: Test 05/11/25 03:57 05/10/25 21:11 05/10/25 15:58 05/10/25 14:14 Range/Units White Blood Count 2.5 L 4.8-10.8 K/uL Red Blood Count 1.89 L 4.50-6.20 MIL/uL Hemoglobin 6.3 *L 14.0-18.0 g/dL Hematocrit 18.9 *L 42-54 % Mean Corpuscular Volume 100.0 H 79-99 fL Mean Corpuscular Hemoglobin 33.3 H 27.0-33.0 pg Mean Corpuscular Hemoglobin Concent 33.3 32.0-36.0 g/dL Red Cell Distribution Width 15.4 11.0-15.5 % Platelet Count 50 L 130-400 K/uL Mean Platelet Volume 12.2 H 7.5-10.5 fL Segmented Neutrophils % 58 40-70 % Lymphocytes % (Manual) 19 L 22-44 % Monocytes % (Manual) 10 H 2-9 % Eosinophils % (Manual) 13 H 1-6 % Nucleated Red Blood Cells 0.0 0.0-0.19 % Differential Comment MANUAL DIFFERENTIAL White Cell Morphology Comment See comments Platelet Morphology Comment DECREASED Red Blood Cell Morphology See comments Sodium Level 151 H 136-145 mmol/L Potassium Level 4.3 3.5-5.1 mmol/L Chloride Level 124 *H 101-111 mmol/L Carbon Dioxide Level 14 L 21-32 mmol/L Blood Urea Nitrogen 53 H 7-18 mg/dL Creatinine 2.1 H 0.5-1.3 mg/dL Glomerular Filtration Rate Calc 35 >90 mL/min Random Glucose 102 70-105 mg/dL Uric Acid 14.5 H 2.6-7.2 mg/dL Total Calcium 7.8 L 8.5-10.1 mg/dL Phosphorus Level 3.9 2.5-4.9 mg/dL Magnesium Level 2.40 1.80-2.40 mg/dL Total Bilirubin 0.5 0.2-1.0 mg/dL Aspartate Amino Transf (AST/SGOT) 45 H 10-37 U/L Alanine Aminotransferase (ALT/SGPT) 32 12-78 U/L Alkaline Phosphatase 180 H 50-136 U/L Ammonia 232 *H 11-32 umol/L Total Protein 5.1 L 6.0-8.3 g/dL Albumin 2.0 L 3.5-5.0 g/dL Urine Random Creatinine 67.72 30-135 mg/dL Urine Random Sodium 36 L 40-220 mmol/l Urine Random Potassium 20 L 25-125 mmol/L Urine Random Chloride 57 L 110-250 mmol/L Band Neutrophils % 2 0-2 % Basophils % (Manual) 1 0-2 % Blood Gas Specimen Type Arterial Arterial Blood pH 7.331 L 7.350-7.450 Arterial Blood Partial Pressure CO2 21 L 35-48 mmHg Arterial Blood Partial Pressure O2 127.0 H 83.0-108.0 mmHg Arterial Blood HCO3 10.8 L 21.0-28.0 mmol/L Arterial Blood Oxygen Saturation 98.4 H 94.0-98.0 % Arterial Blood Base Excess -12.7 L -2.0-3.0 mmol/L Blood Gas Temperature 37.0 35.5-37.0 CELSIUS Blood Gas Vent Mode RA ROOM AIR FiO2 21.0 % Blood Gas Specimen Comment RR Test 05/10/25 11:35 05/10/25 07:21 05/10/25 04:15 Range/Units Stool Occult Blood POSITIVE H NEGATIVE Iron Level 130 # 65-175 mcg/dL Total Iron Binding Capacity 179 L 250-450 mcg/dL Percent Iron Saturation 72.6 H 30-44 % Immature Granulocyte % (Auto) 0.4 0-1 % Neutrophils (%) (Auto) 52.7 40.0-77.0 % Lymphocytes (%) (Auto) 26.8 21.0-51.0 % Monocytes (%) (Auto) 9.3 3.0-13.0 % Eosinophils (%) (Auto) 10.4 H 0.0-8.0 % Basophils (%) (Auto) 0.4 0.0-5.0 % Neutrophils # (Auto) 1.5 L 1.8-7.7 K/uL Lymphocytes # (Auto) 0.8 L 1.0-4.8 K/uL Monocytes # (Auto) 0.3 0.1-1.0 K/uL Eosinophils # (Auto) 0.29 0.00-0.70 K/uL Basophils # (Auto) 0.01 0.00-0.20 K/uL Absolute Immature Granulocyte (auto 0.01 0-1 K/uL Reactive Lymphocytes 1 H 0-0 % Current Medications Medications (Trade) Dose Ordered Sig/Abdiel Route PRN Reason Start Time Stop Time Status Last Admin Dose Admin Acetaminophen (TYLenol 325MG TAB) 650 mg Q4H PRN PO MILD PAIN (1-3) 05/09/25 01:30 06/08/25 01:29 Acetaminophen (TYLenol 325MG TAB) 650 mg Q4H PRN PO MILD PAIN (1-3) 05/10/25 12:00 05/11/25 06:42 DC Acetaminophen (TYLenol 325MG TAB) 650 mg Q6H PRN PO TEMPERATURE GREATER THAN 101.5 05/10/25 12:00 06/09/25 11:59 Al Hydroxide/Mg Hydroxide (MAALox PLUS 30ML) 30 ml Q6H PRN PO INDIGESTION 05/10/25 12:00 06/09/25 11:59 Albumin Human 50 ml @ 0 mls/hr Q8H5 IV 05/10/25 17:00 05/12/25 09:00 05/11/25 05:00 100 MLS/HR Diphenhydramine HCl (BENAdryl CAP) 25 mg Q4H PRN PO MILD ITCHING/RASH 05/10/25 12:00 06/09/25 11:59 Diphenhydramine HCl (BENAdryl INJ) 25 mg Q6H PRN IV SEVERE ITCHING/RASH 05/10/25 12:00 06/09/25 11:59 05/10/25 13:30 25 MG Famotidine (Pepcid 20mg Vial) 20 mg BID IV 05/10/25 21:00 06/09/25 20:59 UNV Famotidine (Pepcid 20mg Vial) 20 mg BID PRN IV NAUSEA/VOMITING 05/10/25 12:00 06/09/25 11:59 UNV Guaifenesin/ Dextromethorphan (RobiTUSSin DM 200/20MG 10ML) 10 ml Q4H PRN PO COUGH 05/10/25 12:00 06/09/25 11:59 Hydralazine HCl (APRESOLine 20MG INJ) 10 mg Q6H PRN IV For:SBP above 160;DBP above 90 05/09/25 01:30 06/08/25 01:29 Hydralazine HCl (APRESOLine 20MG INJ) 10 mg Q6H PRN IV For:SBP above 160;DBP above 90 05/10/25 12:00 06/09/25 11:59 UNV Lactulose (Constulose 20gm/ 30ml Udcup) 20 gm BID PO 05/09/25 09:00 05/10/25 06:41 DC 05/09/25 20:51 20 GM Lactulose (Constulose 20gm/ 30ml Udcup) 20 gm BID PRN PO CONSTIPATION 05/10/25 12:00 06/09/25 11:59 Lactulose (Constulose 20gm/ 30ml Udcup) 20 gm TID PO 05/10/25 07:00 05/10/25 11:48 DC Lactulose (Constulose 20gm/ 30ml Udcup) 45 gm TID PO 05/10/25 14:00 06/09/25 13:59 05/11/25 09:57 45 GM Morphine Sulfate (morPHINE 2MG SYG) 2 mg Q4H PRN IVP SEVERE PAIN (7-10) 05/09/25 01:30 05/16/25 01:29 Nitroglycerin (Nitrostat) 0.4 mg PROTOCOL PRN SL CHEST PAIN 05/10/25 12:00 06/09/25 11:59 Ondansetron HCl (zoFRAN 4MG INJ) 4 mg Q6H PRN IV NAUSEA/VOMITING 05/09/25 01:30 06/08/25 01:29 Ondansetron HCl (zoFRAN 4MG INJ) 4 mg Q6H PRN IV NAUSEA/VOMITING 05/10/25 12:00 06/09/25 11:59 UNV Pantoprazole Sodium (PROTonix 40MG TAB) 40 mg DAILY PO 05/09/25 09:00 06/08/25 08:59 05/11/25 09:57 40 MG Sodium Bicarbonate (Sodium Bicarbonate) 650 mg QID PO 05/11/25 09:00 06/10/25 08:59 05/11/25 09:57 650 MG Sodium Chloride 1,000 ml @ 75 mls/hr [id number] IV 05/10/25 12:00 06/09/25 11:59 05/11/25 01:24 75 MLS/HR Thiamine HCl (Vitamin B-1) 100 mg DAILY PO 05/11/25 09:00 06/10/25 08:59 05/11/25 09:57 100 MG Zolpidem Tartrate (AmbIEN) 5 mg HS PRN PO INSOMNIA 05/10/25 12:00 06/09/25 11:59 DIAGNOSTICS / RADIOLOGY: [ ] ASSESSMENT: Metabolic encephalopathy, POA Uremia, POA Acute blood loss unknown origin POA Multifactorial anemia POA Psoriasis POA Acute kidney injury, POA creatinine from 03/29/2025 which was 2.1, today it is 2.5. Hepatic encephalopathy, POA Pancytopenia, POA Liver cirrhosis, POA PLAN: Patient to receive 1 unit of PRBC, follow CBC post transfusion. GI consultation requested, follow input and recommendation. Continue Protonix and octreotide drip. Continue lactulose, follow ammonia level in a.m.. We will give sodium bicarbonate IV 50 mEq. Start sodium bicarb tablets 650 mg p.o. q.i.d.. Nephrology consultation requested, follow input and recommendation. NEURO: Minimize central acting medications as possible. Fall Precautions. Well lighted room through the day and minimize interruptions through the night to prevent acute delirium. PULMONARY: Supplemental 02 as needed BiPAP as necessary, for respiratory distress Titrate Fio2 to keep Spo2 > or = 90% DuoNebs and CPT as needed IS hourly while awake for pulmonary hygiene prn Out of bed to chair as tolerated Maintain aspiration precautions at all times CARDIOVASCULAR: Follow hemodynamics. Vital signs per facility protocol GI & NUTRITION: Continue nutritional support Aspirations precautions Prokinetic agents and laxatives as needed KIDNEYS & ELECTROLYTES: Strict monitoring of intake and output Daily weights Avoid nephrotoxic agents Monitor electrolytes and replace as needed Goal urine output of 30mL/hr or 0.5mL/kg/hr Medications to be dosed according to renal function. Avoid contrast if possible ENDOCRINE: Maintain blood glucose between 100-180 at all times. Insulin sliding scale for blood glucose management Hypoglycemia and hyperglycemia protocol in place INFECTIOUS DISEASE: Trend temperature, WBC and procalcitonin level Follow cultures, deescalate antibiotics as soon as possible. Panculture if new onset fever HEMATOLOGY & COAGULATION: Monitor H&H. Keep Hgb > 7 Transfuse 1 unit of PRBC for Hgb < 7 Transfuse 1 pack of platelets of platelets < 20, 000 Watch for any signs and symptoms of bleeding SKIN: Pressure ulcer prevention per facility protocol Specialty mattress as needed ORTHO/REHAB Continue PT/OT PRN: MEDICATIONS Tylenol 650 mg po every 4 hrs for fever zofran 4 mg IV every 6 hrs for n/v Hydralazine 5 mg IV every 4 hrs systolic pressure > 160 bowel regiment: lactulose 20 gm PO BID PRN constipation Supportive measures: Continue GI and DVT prophylaxis Disposition: Pending improvement in clinical condition All questions answered time spent: > 35 min JERMAN DAO MD May 11, 2025 12:36
[2025-05-11] MEDS ORDERED: COMPOUND IV REFRIGERATED 1 EACH IVSOLN MISC PRN (13:00)
[2025-05-11] MEDS ORDERED: COMPOUND IV MISC 1 EACH IVSOLN MISC PRN (13:00)
--- NOTE | 2025-05-11 13:08 | PN ---
NEPHROLOGY PROGRESS NOTE Date/Time Patient Seen: May 11, 2025 SUBJECTIVE: This is a 65-year-old male with known history of cirrhosis of the liver was brought to the emergency room by his with complaints of confusion and disorientation. She indicated that he has been taking rifaximin for the past 10 days although he was recommended for 30 days. He has been in the hospital for several days He was noted with worsening renal failure We are consulted fo renal failure Renal function remains elevated Electrolytes are stable Hemoglobin today was 6.3 g/dL, pending PRBC transfusion He continues on albumin and Protonix. Imaging studies were noted He was seen in the medical floor Family at the bedside Prognosis remains guarded REVIEW OF SYSTEMS: GENERAL: Negative for any nausea, vomiting, fevers, chills, or weight loss. NEUROLOGIC: Negative for any blurry vision, blind spots, double vision, facial asymmetry, dysphagia, dysarthria, hemiparesis, hemisensory deficits, vertigo, ataxia. HEENT: Negative for any head trauma, neck trauma, neck stiffness, photophobia, phonophobia, sinusitis, rhinitis. CARDIAC: Negative for any chest pain, dyspnea on exertion, paroxysmal nocturnal dyspnea, peripheral edema. PULMONARY: Negative for any shortness of breath, wheezing, COPD, or TB exposure. GASTROINTESTINAL: Negative for any abdominal pain, nausea, vomiting, bright red blood per rectum, melena. GENITOURINARY: Negative for any dysuria, hematuria, incontinence. INTEGUMENTARY: Negative for any rashes, cuts, insect bites. RHEUMATOLOGIC: Negative for any joint pains, photosensitive rashes, history of vasculitis or kidney problems. HEMATOLOGIC: Negative for any abnormal bruising, frequent infections or bleeding. Vital Signs (last 8hr) Date Time Temp Pulse Resp B/P (MAP) Pulse Ox O2 Delivery O2 Flow Rate FiO2 05/11/25 12:11 98.1 74 18 145/52 100 Room Air 05/11/25 08:20 98.1 79 18 155/76 100 Room Air PHYSICAL EXAM: GENERAL: Alert and oriented x 3. No acute distress. Well-nourished. EYES: EOMI. Anicteric. HENT: Moist mucous membranes. No scleral icterus. No cervical lymphadenopathy. LUNGS: Clear to auscultation bilaterally. No accessory muscle use. CARDIOVASCULAR: Regular rate and rhythm. No murmur. No JVD. ABDOMEN: Soft, non-tender and non-distended. No palpable masses. EXTREMITIES: No edema. Non-tender. SKIN: No rashes or lesions. Warm. NEUROLOGIC: No focal neurological deficits. CN II-XII grossly intact, but not individually tested. PSYCHIATRIC: Cooperative. Appropriate mood and affect. Current Medications Medications (Trade) Dose Ordered Sig/Abdiel Route Start Time Stop Time Status Last Admin Dose Admin Albumin Human 50 ml @ 0 mls/hr Q8H5 IV 05/10/25 17:00 05/12/25 09:00 05/11/25 05:00 100 MLS/HR Famotidine (Pepcid 20mg Vial) 20 mg BID IV 05/10/25 21:00 06/09/25 20:59 UNV Lactulose (Constulose 20gm/ 30ml Udcup) 20 gm BID PO 05/09/25 09:00 05/10/25 06:41 DC 05/09/25 20:51 20 GM Lactulose (Constulose 20gm/ 30ml Udcup) 20 gm TID PO 05/10/25 07:00 05/10/25 11:48 DC Lactulose (Constulose 20gm/ 30ml Udcup) 45 gm TID PO 05/10/25 14:00 06/09/25 13:59 05/11/25 09:57 45 GM Multivitamins/ Minerals 10 ml/ Folic Acid 1 mg/ Thiamine HCl 100 mg/Sodium Chloride 1,010 ml @ 50 mls/hr Q24H IV 05/11/25 14:00 05/14/25 10:11 Octreotide Acetate 1250 mcg/ Sodium Chloride 250 ml @ 0 mls/hr PROTOCOL IV 05/11/25 13:00 06/10/25 12:59 Pantoprazole Sodium (PROTonix 40MG TAB) 40 mg DAILY PO 05/09/25 09:00 05/11/25 12:35 DC 05/11/25 09:57 40 MG Pantoprazole Sodium 80 mg/ Sodium Chloride 100 ml @ 10 mls/hr Q10H IV 05/11/25 13:00 06/10/25 12:59 Sodium Bicarbonate (Sodium Bicarbonate) 650 mg QID PO 05/11/25 09:00 06/10/25 08:59 05/11/25 09:57 650 MG Sodium Chloride 1,000 ml @ 75 mls/hr [id number] IV 05/10/25 12:00 05/11/25 12:35 DC 05/11/25 01:24 75 MLS/HR Thiamine HCl (Vitamin B-1) 100 mg DAILY PO 05/11/25 09:00 05/11/25 12:40 DC 05/11/25 09:57 100 MG Thiamine HCl (Vitamin B-1) 100 mg DAILY PO 05/14/25 09:00 06/13/25 08:59 LABORATORY: [ ] Hematology Labs: Test 05/11/25 03:57 05/10/25 15:58 05/10/25 04:15 Range/Units White Blood Count 2.5 L 4.8-10.8 K/uL Red Blood Count 1.89 L 4.50-6.20 MIL/uL Hemoglobin 6.3 *L 14.0-18.0 g/dL Hematocrit 18.9 *L 42-54 % Mean Corpuscular Volume 100.0 H 79-99 fL Mean Corpuscular Hemoglobin 33.3 H 27.0-33.0 pg Mean Corpuscular Hemoglobin Concent 33.3 32.0-36.0 g/dL Red Cell Distribution Width 15.4 11.0-15.5 % Platelet Count 50 L 130-400 K/uL Mean Platelet Volume 12.2 H 7.5-10.5 fL Segmented Neutrophils % 58 40-70 % Lymphocytes % (Manual) 19 L 22-44 % Monocytes % (Manual) 10 H 2-9 % Eosinophils % (Manual) 13 H 1-6 % Nucleated Red Blood Cells 0.0 0.0-0.19 % Differential Comment MANUAL DIFFERENTIAL White Cell Morphology Comment See comments Platelet Morphology Comment DECREASED Red Blood Cell Morphology See comments Band Neutrophils % 2 0-2 % Basophils % (Manual) 1 0-2 % Immature Granulocyte % (Auto) 0.4 0-1 % Neutrophils (%) (Auto) 52.7 40.0-77.0 % Lymphocytes (%) (Auto) 26.8 21.0-51.0 % Monocytes (%) (Auto) 9.3 3.0-13.0 % Eosinophils (%) (Auto) 10.4 H 0.0-8.0 % Basophils (%) (Auto) 0.4 0.0-5.0 % Neutrophils # (Auto) 1.5 L 1.8-7.7 K/uL Lymphocytes # (Auto) 0.8 L 1.0-4.8 K/uL Monocytes # (Auto) 0.3 0.1-1.0 K/uL Eosinophils # (Auto) 0.29 0.00-0.70 K/uL Basophils # (Auto) 0.01 0.00-0.20 K/uL Absolute Immature Granulocyte (auto 0.01 0-1 K/uL Reactive Lymphocytes 1 H 0-0 % Chemistry Labs: Test 05/11/25 03:57 05/10/25 07:21 Range/Units Sodium Level 151 H 136-145 mmol/L Potassium Level 4.3 3.5-5.1 mmol/L Chloride Level 124 *H 101-111 mmol/L Carbon Dioxide Level 14 L 21-32 mmol/L Blood Urea Nitrogen 53 H 7-18 mg/dL Creatinine 2.1 H 0.5-1.3 mg/dL Glomerular Filtration Rate Calc 35 >90 mL/min Random Glucose 102 70-105 mg/dL Uric Acid 14.5 H 2.6-7.2 mg/dL Total Calcium 7.8 L 8.5-10.1 mg/dL Phosphorus Level 3.9 2.5-4.9 mg/dL Magnesium Level 2.40 1.80-2.40 mg/dL Total Bilirubin 0.5 0.2-1.0 mg/dL Aspartate Amino Transf (AST/SGOT) 45 H 10-37 U/L Alanine Aminotransferase (ALT/SGPT) 32 12-78 U/L Alkaline Phosphatase 180 H 50-136 U/L Ammonia 232 *H 11-32 umol/L Total Protein 5.1 L 6.0-8.3 g/dL Albumin 2.0 L 3.5-5.0 g/dL Iron Level 130 # 65-175 mcg/dL Total Iron Binding Capacity 179 L 250-450 mcg/dL Percent Iron Saturation 72.6 H 30-44 % DIAGNOSTICS / RADIOLOGY: [place] [id number] [address] IMAGING REPORT Signed PATIENT: KEVIN REINOSO MR#: [id number] : 1960 SEX: M AGE: 65 LOCATION: [facility] ORDER 0645 STATUS: ADM IN REPORT#: [id number] SERVICE 0644 REASON: fly ORDERING PHYSICIAN: MARGARITO PRASAD RN DOCUMENT IMPROVEMENT PROCEDURE: RENAL - US RENAL SONOGRAM EXAMINATION: ULTRASOUND OF THE RETROPERITONEUM. CLINICAL HISTORY: FLY. COMPARISON: None provided. TECHNIQUE: Real-time grayscale and color ultrasound images of the kidneys. FINDINGS: The kidneys are normal in caliber; the right kidney measures 10.0 x 4.9 x 4.8 cm in its craniocaudal, AP, and transverse dimensions, and the left kidney measures 9.7 x 5.1 x 4.0 cm in its craniocaudal, AP, and transverse dimensions. There is normal renal cortical thickness and increased cortical echogenicity. There is no renal calculus. There is no hydronephrosis. The urinary bladder is normal in caliber and wall thickness (0.4 cm). There are no calculi in the urinary bladder. Incidentally noted, dilated splenic vein that measures 2.1 cm. IMPRESSION: Increased cortical echogenicity, may reflect renal parenchymal disease. Recommend clinical correlation and laboratory parameters. Dilated splenic vein may reflect aneurysm. Recommend contrast enhanced CT abdomen and pelvis. /[place] DICTATED BY: CARI HERRING Jr., MD DATE: 05/10/251515 ELECTRONICALLY SIGNED BY: CARI HERRING Jr., MD DATE: 05/10/251515 PATIENT: KEVIN REINOSO MR#: [id number] : 1960 SEX: M AGE: 65 LOCATION: [facility] ORDER 1234 STATUS: ADM IN REPORT#: [id number] SERVICE 1233 REASON: congestion pna ORDERING PHYSICIAN: MARGARITO PRASAD RN DOCUMENT IMPROVEMENT PROCEDURE: CXR1VW - CHEST 1VW EXAM: CR Chest, 1 View. CLINICAL HISTORY: congestion pna COMPARISON: X-ray chest 03/26/2025 FINDINGS: LUNGS: There is no mass, infiltrate, or acute pulmonary abnormality. PLEURAL SPACES: No evidence of pleural effusion or pneumothorax. MEDIASTINUM: The cardiomediastinal silhouette is within normal limits. BONES: No acute osseous abnormality. IMPRESSION: No acute cardiopulmonary pathology is evident. No significant change /[place] DICTATED BY: TRAVIS SHEIKH MD DATE: 05/09/251744 ELECTRONICALLY SIGNED BY: TRAVIS SHEIKH MD DATE: 05/09/251744 PATIENT: KEVIN REINOSO MR#: [id number] : 1960 SEX: M AGE: 65 LOCATION: [facility] ORDER 10 STATUS: ADM IN REPORT#: [id number] SERVICE 09 REASON: confusion AMS ORDERING PHYSICIAN: ASHLEY MORGAN MD PROCEDURE: HEAD WO - CT HEAD/BRAIN W/O CONTRAST EXAM: Non-contrast CT examination of the Brain CLINICAL HISTORY: Confusion. Altered mental status. TECHNIQUE: Thin collimated axial CT images of the brain were obtained, with sagittal and coronal reformatted images also submitted. CT scan done according to ALARA (As Low as Reasonably Achievable). CONTRAST USED: None. COMPARISON: Prior CT brain dated 03/26/25. FINDINGS: No acute intracranial abnormality is present. No acute cortical infarction, hemorrhage, mass, or mass effect. Small, ill-defined hypodensities in the bilateral cerebral white matter suggest mild chronic ischemic changes secondary to small vessel disease. Mild to moderate generalized cerebral atrophy, more for the given age. No hydrocephalus or abnormal extra-axial fluid collections. The posterior fossa is unremarkable. The skull base and calvarium are intact. The included portions of the paranasal sinuses and mastoid air cells are clear. IMPRESSION: No acute intracranial abnormality is present. Mild chronic ischemic changes secondary to small vessel disease. Mild to moderate generalized cerebral atrophy, more for the given age. No significant interval changes. /[place] DICTATED BY: CARI HERRING Jr., MD DATE: 07/23/25 0148 ELECTRONICALLY SIGNED BY: CARI HERRING Jr., MD DATE: 05/09/25147 ASSESSMENT: Acute on chronic renal failure Anemia Metabolic encephalopathy Psoriasis Hepatic encephalopathy Pancytopenia Liver cirrhosis PLAN: Labs, diagnostic, radiologic exams reviewed and interpreted by myself and supervising physician. We have reviewed external records in detail Pending further GI recommendations Require close monitoring of renal function and electrolytes Order CBC, CMP,and electrolytes in am BiPAP as necessary, for respiratory distress Monitor blood pressure adjust medication doses as needed Avoid hypotensive episodes May use Dilaudid 0.5 mg IV every 6 hours as needed for severe pain Monitor blood sugars Strict intake, output, and daily weight should be monitored Please renally adjust medications Avoid nephrotoxic and nonsteroidal drugs Avoid contrast if possible Will continue to monitor renal function, anemia, electrolytes Treatment plan discussed with patient Questions were answered We have discussed with the other team physicians in detail about the care plan We will continue to monitor the patient closely ATTESTATION BY PHYSICIAN I have seen and examined the patient. I reviewed the documentation, medical decision making, and treatment plan as noted by the mid-level provider above. I agree with the findings and plan of care. JENNY SAENZ MD, [facility] May 11, 2025 13:08
[2025-05-11] MEDS: M.V.I. IV [ADULT] 10 ML, FOLic ACID 5 MG/ML VIAL 1 MG, THIAMINE HCL 100 MG in 0.9%NACL ... IV SCH (13:41)
[2025-05-12] VITALS (19 sets, daily range): BP systolic 135–171; BP diastolic 58–89; PULSE 75–111; RESP 10–20; TEMP 97.8–99.1; O2SAT 98
[2025-05-12 04:19] LABS: NUCLEATED RED BLOOD CELLS 0.0 % (0.0-0.19); PLATELET COUNT (AUTO) 60.0 K/uL (130-400); RED BLOOD CELL COUNT(AUTO) 2.68 MIL/uL (4.50-6.20); RED CELL DISTRIBUTION WIDTH 16.6 % (11.0-15.5); WHITE BLOOD COUNT (AUTO) 8.9 K/uL (4.8-10.8)
[2025-05-12 04:44] LABS: ASPARTATE AMINOTRANSFERASE 68.0 U/L (10-37); CREATININE 2.3 mg/dL (0.5-1.3); GLOMERULAR FILTR. RATE CALC 31.0 mL/min (>90); GLUCOSE,RANDOM 128.0 mg/dL (70-105); SODIUM SERUM 152.0 mmol/L (136-145); TOTAL PROTEIN, SERUM 6.0 g/dL (6.0-8.3); UREA NITROGEN, BLOOD 51.0 mg/dL (7-18)
--- NOTE | 2025-05-12 09:12 | NUR ---
PATIENT OFF THE FLOOR FOR EGD
[2025-05-12] MEDS ORDERED: LIDOCAINE PF 100MG/5ML (2%) SYRINGE 5ML ONE (09:18)
--- NOTE | 2025-05-12 10:31 | NUR ---
pt at bedside with primary nurse and family no concerns voiced
--- NOTE | 2025-05-12 11:39 | PN ---
[facility] PROGRESS NOTE Date of Service: May 12, 2025 Time of Service: 11:[address] Hernandez SUBJECTIVE: [ 05/08 Patient's reports that she brought the patient to the emergency department with a chief complaint of altered mental status. Onset was yesterday at 1800. Location is head. Duration is constant. Character is described as delayed speech. There was no alleviating factors. There was no aggravating factors. Patient reports multiple episodes in the last three months secondary to patient's liver cirrhosis. Today in the emergency department WBCs 3.4, hemoglobin 7.6, hematocrit 23.0, platelets 66, creatinine 2.5, BUN 62, alkaline phosphatase 232, ammonia 79, urinalysis unremarkable, toxicology unremarkable. Emergency room physician recommended patient be admitted with a diagnosis of encephalopathy. 05/09 was seen by nurse practitioner and physician during rounding in room 332. Patient's ammonia level today is 79. Patient is more alert and oriented. Family members/ at the bedside. CT head brain was negative. Creatinine has improved and compared to the previous admission is about stable. We will order chest x-ray and physical therapy. UA negative for leukocytosis. We will continue to monitor patient in the meantime. A.m. lab 05/10 patient was seen by nurse practitioner and physician during rounding in room 332. Patient has some psoriasis on his side back. Benadryl was ordered. Patient's hemoglobin today was 6.7 repeat seven. We will repeat CBC later afternoon and if hemoglobin we will be less than seven we will transfuse one PRBC, no repeat CBC, just transfuse place. Occult blood was ordered. Iron panel was ordered as well and we placed patient on fluids 0.9 at 75 mL/hour. Today ammonia was also elevated we switch lactulose from 20 mL t.i.d. to 45 mL t.i.d. patient is pending PT. We also consulted Nephrology for worsening renal function. We will continue to monitor patient in the meantime. A.m. labs] 05/11 patient with past medical history of liver cirrhosis, admitted with chief complaint of altered mental status, found to have anemia with a stool occult blood positive. patient has been upgraded to the PCU. At the time of my visit he walked out of the restroom, had a p.m., looks mildly dark, nonbloody. He is alert oriented x2, chronically ill-appearing, denies chest pain, shortness shortness for breath, no nausea, no vomiting, no abdominal discomfort. Blood pressure 145/52, afebrile, saturating normal on room air. Hemoglobin 6.3, hematocrit 18.9, WBC 2.5, platelet count of 50. Sodium 151, potassium 4.3, BUN 53, creatinine 2.1, bicarbonate of 14. Ammonia level 232. ABG pH of 7.33, pCO2 21, bicarbonate of 10.8. Stool occult blood positive. Patient to receive 1 unit of PRBC, follow CBC post transfusion. GI consultation requested, follow input and recommendation. Continue Protonix and octreotide drip. Continue lactulose, follow ammonia level in a.m.. We will give sodium bicarbonate IV 50 mEq. Start sodium bicarb tablets 650 mg p.o. q.i.d.. Nephrology consultation requested, follow input and recommendation. 05/12 patient was seen by nurse practitioner and physician during rounding in room 228. Patient is s/p one PRBC yesterday. Most recent hemoglobin 8.8 hematocrit 26.1. Stool occult positive patient is pending EGD today as per GI. Ammonia level has improved 163 today. Sodium 152 potassium 3.9 creatinine 2.3 GFR 31. Continue Protonix and octreotide drip. Continue lactulose for ammonia levels a.m. labs REVIEW OF SYSTEMS CONSTITUTIONAL: Denies fevers, chills, or night sweats. No unintentional weight loss reported. NEUROLOGICAL: Denies headache, amaurosis fugax, motor weakness, sensory deficit, vertigo/spinning sensation, gait abnormalities, or tremors. ENT: No hearing loss, otalgia, otorrhea, rhinitis, rhinorrhea, hoarseness, or sore throat. CARDIOVASCULAR: Denies any exertional angina, dyspnea on exertion, orthopnea, paroxysmal nocturnal dyspnea, palpitations, life-threatening arrhythmias, claudication. PULMONARY: Denies any shortness of breath, cough, phlegm/sputum, hemoptysis, pleuritic chest pain. SLEEP: Denies morning headaches, daytime somnolence or napping. Denies difficulty falling asleep, staying asleep, waking from sleep. Denies knowledge of snoring. GASTROINTESTINAL: Denies any type of dysphagia to either liquids or solids. Denies nausea, vomiting, pyrosis, early satiety, abdominal pain, diarrhea, constipation, or changes in stool consistency or caliber. Denies coffee-ground emesis, hematemesis, hematochezia, or melanotic stools. GENITOURINARY: Denies frequency, urgency, nocturia, hematuria or incontinence (Storage/Irritative symptoms.) Low urinary stream, straining to void, urinary intermittency or hesitancy, splitting of the voiding stream, terminal dribbling. ENDOCRINOLOGIC: Denies polyuria, polydipsia, polyphagia or heat/cold intolerances. HEMATOLOGIC: Denies thrombophilia/previous clots, or coagulopathy/bleeding disorders. ONCOLOGIC: Denies personal history of malignancy. DERMATOLOGIC: Denies rashes or pruritus. PSYCHIATRIC: Denies any suicidal or homicidal ideation. Denies hallucinations. PHYSICAL EXAM GENERAL APPEARANCE: The patient is awake, alert, and oriented, in no acute cardiopulmonary distress. NEUROLOGICAL: Cranial nerves II-XII grossly intact. Motor is 5/5 in bilateral upper and lower extremities proximal to distal. No sensory deficits. HEENT: Face is symmetric. Pupils are equal and reactive. Extraocular movements are intact. NECK: Supple. No JVD. No thyromegaly. No submental, submandibular, pre- /postauricular, occipital or supraclavicular lymphadenopathy. CHEST: Normal chest expansion. No Telemetry. LUNGS: Absence of any rales, rhonchi or any wheezing. CARDIOVASCULAR: Regular. S1 and S2 normal. No appreciable rubs, murmurs or gallops. ABDOMEN: Soft, nontender, and nondistended. There is no rebound, voluntary guarding, or rigidity. : Deferred. No Kelly. EXTREMITIES: Non-edematous and not cyanotic. No clubbing. Good capillary refill. SKIN: No skin breakdown. Vital Signs (last 8hr) Date Time Temp Pulse Resp B/P (MAP) Pulse Ox O2 Delivery O2 Flow Rate FiO2 05/12/25 10:20 97.9 79 12 160/74 Nasal Cannula 2.0 05/12/25 10:15 81 10 160/82 100 Nasal Cannula 2.0 05/12/25 10:10 85 11 160/82 100 Nasal Cannula 2.0 05/12/25 10:05 97 15 160/82 99 Nasal Cannula 2.0 05/12/25 10:00 75 11 153/63 100 Nasal Cannula 2.0 05/12/25 09:55 78 11 138/67 100 endo mask 10.0 05/12/25 09:50 97.9 79 14 135/58 100 endo mask 05/12/25 09:36 Mask 10.0 05/12/25 09:36 Mask 05/12/25 08:00 99.1 86 18 171/68 98 LABS: Laboratory: Test 05/12/25 03:51 05/11/25 03:57 05/10/25 21:11 05/10/25 15:58 Range/Units White Blood Count 8.9 # 4.8-10.8 K/uL Red Blood Count 2.68 #L 4.50-6.20 MIL/uL Hemoglobin 8.8 #L 14.0-18.0 g/dL Hematocrit 26.1 #L 42-54 % Mean Corpuscular Volume 97.4 79-99 fL Mean Corpuscular Hemoglobin 32.8 27.0-33.0 pg Mean Corpuscular Hemoglobin Concent 33.7 32.0-36.0 g/dL Red Cell Distribution Width 16.6 H 11.0-15.5 % Platelet Count 60 L 130-400 K/uL Mean Platelet Volume 13.4 H 7.5-10.5 fL Nucleated Red Blood Cells 0.0 0.0-0.19 % Sodium Level 152 H 136-145 mmol/L Potassium Level 3.9 3.5-5.1 mmol/L Chloride Level 125 *H 101-111 mmol/L Carbon Dioxide Level 12 L 21-32 mmol/L Blood Urea Nitrogen 51 H 7-18 mg/dL Creatinine 2.3 H 0.5-1.3 mg/dL Glomerular Filtration Rate Calc 31 >90 mL/min Random Glucose 128 H 70-105 mg/dL Total Calcium 8.1 L 8.5-10.1 mg/dL Magnesium Level 2.40 1.80-2.40 mg/dL Total Bilirubin 1.3 #H 0.2-1.0 mg/dL Aspartate Amino Transf (AST/SGOT) 68 H 10-37 U/L Alanine Aminotransferase (ALT/SGPT) 45 # 12-78 U/L Alkaline Phosphatase 203 H 50-136 U/L Ammonia 163 *H 11-32 umol/L Total Protein 6.0 6.0-8.3 g/dL Albumin 2.7 #L 3.5-5.0 g/dL Segmented Neutrophils % 58 40-70 % Lymphocytes % (Manual) 19 L 22-44 % Monocytes % (Manual) 10 H 2-9 % Eosinophils % (Manual) 13 H 1-6 % Differential Comment MANUAL DIFFERENTIAL White Cell Morphology Comment See comments Platelet Morphology Comment DECREASED Red Blood Cell Morphology See comments Uric Acid 14.5 H 2.6-7.2 mg/dL Phosphorus Level 3.9 2.5-4.9 mg/dL Urine Osmolality 389 50-1200 mOsm/kg Urine Random Creatinine 67.72 30-135 mg/dL Urine Random Sodium 36 L 40-220 mmol/l Urine Random Potassium 20 L 25-125 mmol/L Urine Random Chloride 57 L 110-250 mmol/L Band Neutrophils % 2 0-2 % Basophils % (Manual) 1 0-2 % Test 05/10/25 14:14 05/10/25 11:35 Range/Units Blood Gas Specimen Type Arterial Arterial Blood pH 7.331 L 7.350-7.450 Arterial Blood Partial Pressure CO2 21 L 35-48 mmHg Arterial Blood Partial Pressure O2 127.0 H 83.0-108.0 mmHg Arterial Blood HCO3 10.8 L 21.0-28.0 mmol/L Arterial Blood Oxygen Saturation 98.4 H 94.0-98.0 % Arterial Blood Base Excess -12.7 L -2.0-3.0 mmol/L Blood Gas Temperature 37.0 35.5-37.0 CELSIUS Blood Gas Vent Mode RA ROOM AIR FiO2 21.0 % Blood Gas Specimen Comment RR Stool Occult Blood POSITIVE H NEGATIVE Current Medications Medications (Trade) Dose Ordered Sig/Abdiel Route PRN Reason Start Time Stop Time Status Last Admin Dose Admin Acetaminophen (TYLenol 325MG TAB) 650 mg Q4H PRN PO MILD PAIN (1-3) 05/09/25 01:30 06/08/25 01:29 05/11/25 14:01 650 MG Acetaminophen (TYLenol 325MG TAB) 650 mg Q4H PRN PO MILD PAIN (1-3) 05/10/25 12:00 05/11/25 06:42 DC Acetaminophen (TYLenol 325MG TAB) 650 mg Q6H PRN PO TEMPERATURE GREATER THAN 101.5 05/10/25 12:00 06/09/25 11:59 Al Hydroxide/Mg Hydroxide (MAALox PLUS 30ML) 30 ml Q6H PRN PO INDIGESTION 05/10/25 12:00 06/09/25 11:59 Albumin Human 50 ml @ 0 mls/hr Q8H5 IV 05/10/25 17:00 05/12/25 09:00 DC 05/12/25 04:47 50 MLS/HR Diphenhydramine HCl (BENAdryl CAP) 25 mg Q4H PRN PO MILD ITCHING/RASH 05/10/25 12:00 06/09/25 11:59 Diphenhydramine HCl (BENAdryl INJ) 25 mg Q6H PRN IV SEVERE ITCHING/RASH 05/10/25 12:00 06/09/25 11:59 05/10/25 13:30 25 MG Famotidine (Pepcid 20mg Vial) 20 mg BID IV 05/10/25 21:00 06/09/25 20:59 UNV Famotidine (Pepcid 20mg Vial) 20 mg BID PRN IV NAUSEA/VOMITING 05/10/25 12:00 06/09/25 11:59 UNV Guaifenesin/ Dextromethorphan (RobiTUSSin DM 200/20MG 10ML) 10 ml Q4H PRN PO COUGH 05/10/25 12:00 06/09/25 11:59 Hydralazine HCl (APRESOLine 20MG INJ) 5 mg Q6H PRN IV ADMINISTER FOR SBP > 160 05/11/25 12:30 06/10/25 12:29 05/12/25 04:50 5 MG Hydralazine HCl (APRESOLine 20MG INJ) 10 mg Q6H PRN IV For:SBP above 160;DBP above 90 05/09/25 01:30 05/11/25 12:31 DC Hydralazine HCl (APRESOLine 20MG INJ) 10 mg Q6H PRN IV For:SBP above 160;DBP above 90 05/10/25 12:00 06/09/25 11:59 UNV Lactulose (Constulose 20gm/ 30ml Udcup) 20 gm BID PO 05/09/25 09:00 05/10/25 06:41 DC 05/09/25 20:51 20 GM Lactulose (Constulose 20gm/ 30ml Udcup) 20 gm BID PRN PO CONSTIPATION 05/10/25 12:00 05/11/25 12:35 DC Lactulose (Constulose 20gm/ 30ml Udcup) 20 gm TID PO 05/10/25 07:00 05/10/25 11:48 DC Lactulose (Constulose 20gm/ 30ml Udcup) 45 gm TID PO 05/10/25 14:00 06/09/25 13:59 05/11/25 20:46 45 GM Morphine Sulfate (morPHINE 2MG SYG) 2 mg Q4H PRN IVP SEVERE PAIN (7-10) 05/09/25 01:30 05/11/25 12:35 DC Multivitamins/ Minerals 10 ml/ Folic Acid 1 mg/ Thiamine HCl 100 mg/Sodium Chloride 1,010 ml @ 50 mls/hr Q24H IV 05/11/25 14:00 05/14/25 10:11 05/11/25 13:41 50 MLS/HR Nitroglycerin (Nitrostat) 0.4 mg PROTOCOL PRN SL CHEST PAIN 05/10/25 12:00 06/09/25 11:59 Octreotide Acetate 1250 mcg/ Sodium Chloride 250 ml @ 0 mls/hr PROTOCOL IV 05/11/25 13:00 06/10/25 12:59 05/12/25 05:43 5 MLS/HR Ondansetron HCl (zoFRAN 4MG INJ) 4 mg Q6H PRN IV NAUSEA/VOMITING 05/09/25 01:30 06/08/25 01:29 Ondansetron HCl (zoFRAN 4MG INJ) 4 mg Q6H PRN IV NAUSEA/VOMITING 05/10/25 12:00 06/09/25 11:59 UNV Pantoprazole Sodium (PROTonix 40MG TAB) 40 mg DAILY PO 05/09/25 09:00 05/11/25 12:35 DC 05/11/25 09:57 40 MG Pantoprazole Sodium 80 mg/ Sodium Chloride 100 ml @ 10 mls/hr Q10H IV 05/11/25 13:00 06/10/25 12:59 05/12/25 08:58 10 MLS/HR Sodium Bicarbonate (Sodium Bicarbonate) 650 mg QID PO 05/11/25 09:00 06/10/25 08:59 05/11/25 20:48 650 MG Sodium Chloride 1,000 ml @ 75 mls/hr [id number] IV 05/10/25 12:00 05/11/25 12:35 DC 05/11/25 01:24 75 MLS/HR Thiamine HCl (Vitamin B-1) 100 mg DAILY PO 05/11/25 09:00 05/11/25 12:40 DC 05/11/25 09:57 100 MG Thiamine HCl (Vitamin B-1) 100 mg DAILY PO 05/14/25 09:00 06/13/25 08:59 Zolpidem Tartrate (AmbIEN) 5 mg HS PRN PO INSOMNIA 05/10/25 12:00 05/11/25 12:35 DC DIAGNOSTICS / RADIOLOGY: [ ] ASSESSMENT: Metabolic encephalopathy, POA Uremia, POA Acute blood loss unknown origin POA Multifactorial anemia POA Psoriasis POA Acute kidney injury, POA creatinine from 03/29/2025 which was 2.1, today it is 2.5. Hepatic encephalopathy, POA Pancytopenia, POA Liver cirrhosis, POA PLAN: Patient s/p 1 unit of PRBC, GI consultation requested, follow input and recommendation. Patient is pending EGD Continue Protonix and octreotide drip. Continue lactulose We will give sodium bicarbonate IV 50 mEq. Nephrology consultation requested, follow input and recommendation. NEURO: Minimize central acting medications as possible. Fall Precautions. Well lighted room through the day and minimize interruptions through the night to prevent acute delirium. PULMONARY: Supplemental 02 as needed BiPAP as necessary, for respiratory distress Titrate Fio2 to keep Spo2 > or = 90% DuoNebs and CPT as needed IS hourly while awake for pulmonary hygiene prn Out of bed to chair as tolerated Maintain aspiration precautions at all times CARDIOVASCULAR: Follow hemodynamics. Vital signs per facility protocol GI & NUTRITION: Continue nutritional support Aspirations precautions Prokinetic agents and laxatives as needed KIDNEYS & ELECTROLYTES: Strict monitoring of intake and output Daily weights Avoid nephrotoxic agents Monitor electrolytes and replace as needed Goal urine output of 30mL/hr or 0.5mL/kg/hr Medications to be dosed according to renal function. Avoid contrast if possible ENDOCRINE: Maintain blood glucose between 100-180 at all times. Insulin sliding scale for blood glucose management Hypoglycemia and hyperglycemia protocol in place INFECTIOUS DISEASE: Trend temperature, WBC and procalcitonin level Follow cultures, deescalate antibiotics as soon as possible. Panculture if new onset fever HEMATOLOGY & COAGULATION: Monitor H&H. Keep Hgb > 7 Transfuse 1 unit of PRBC for Hgb < 7 Transfuse 1 pack of platelets of platelets < 20, 000 Watch for any signs and symptoms of bleeding SKIN: Pressure ulcer prevention per facility protocol Specialty mattress as needed ORTHO/REHAB Continue PT/OT PRN: MEDICATIONS Tylenol 650 mg po every 4 hrs for fever zofran 4 mg IV every 6 hrs for n/v Hydralazine 5 mg IV every 4 hrs systolic pressure > 160 bowel regiment: lactulose 20 gm PO BID PRN constipation Supportive measures: Continue GI and DVT prophylaxis Disposition: Pending improvement in clinical condition All questions answered time spent: > 35 min ATTESTATION BY PHYSICIAN I have seen and examined the patient. I reviewed the documentation, medical decision making, and treatment plan as noted by the mid-level provider above. I agree with the findings and plan of care. MARGARITO Salazar MD [employer] May 12, 2025 11:39
[2025-05-12] MEDS: SODIUM BICARB 50MEQ 50ML VIAL IV SCH ×3 (13:52→19:08)
[2025-05-12] MEDS: SODIUM BICARB 50MEQ 50ML VIAL IV ONE (13:53)
--- NOTE | 2025-05-12 14:27 | PN ---
NEPHROLOGY PROGRESS NOTE Date/Time Patient Seen: May 12, 2025 SUBJECTIVE: This is a 65-year-old male with known history of cirrhosis of the liver was brought to the emergency room by his with complaints of confusion and disorientation. She indicated that he has been taking rifaximin for the past 10 days although he was recommended for 30 days. He has been in the hospital for several days He was noted with worsening renal failure We are consulted for renal failure Renal function remains elevated Electrolytes are stable Hemoglobin today was 8.8 g/dL, pending PRBC transfusion on 05/11 S/p EGD He continues on octreotide and Protonix. Imaging studies were noted He was seen in the medical floor, in no acute distress Family at the bedside Prognosis remains guarded REVIEW OF SYSTEMS: GENERAL: Negative for any nausea, vomiting, fevers, chills, or weight loss. NEUROLOGIC: Negative for any blurry vision, blind spots, double vision, facial asymmetry, dysphagia, dysarthria, hemiparesis, hemisensory deficits, vertigo, ataxia. HEENT: Negative for any head trauma, neck trauma, neck stiffness, photophobia, p honophobia, sinusitis, rhinitis. CARDIAC: Negative for any chest pain, dyspnea on exertion, paroxysmal nocturnal dyspnea, peripheral edema. PULMONARY: Negative for any shortness of breath, wheezing, COPD, or TB exposure. GASTROINTESTINAL: Negative for any abdominal pain, nausea, vomiting, bright red blood per rectum, melena. GENITOURINARY: Negative for any dysuria, hematuria, incontinence. INTEGUMENTARY: Negative for any rashes, cuts, insect bites. RHEUMATOLOGIC: Negative for any joint pains, photosensitive rashes, history of vasculitis or kidney problems. HEMATOLOGIC: Negative for any abnormal bruising, frequent infections or bleeding. Vital Signs (last 8hr) Date Time Temp Pulse Resp B/P (MAP) Pulse Ox O2 Delivery O2 Flow Rate FiO2 05/12/25 11:00 98.1 82 19 164/76 100 Room Air 05/12/25 10:20 97.9 79 12 160/74 Nasal Cannula 2.0 05/12/25 10:15 81 10 160/82 100 Nasal Cannula 2.0 05/12/25 10:10 85 11 160/82 100 Nasal Cannula 2.0 05/12/25 10:05 97 15 160/82 99 Nasal Cannula 2.0 05/12/25 10:00 75 11 153/63 100 Nasal Cannula 2.0 05/12/25 09:55 78 11 138/67 100 endo mask 10.0 05/12/25 09:50 97.9 79 14 135/58 100 endo mask 05/12/25 09:36 Mask 10.0 05/12/25 09:36 Mask 05/12/25 08:00 99.1 86 18 171/68 98 PHYSICAL EXAM: GENERAL: Alert and oriented x 3. No acute distress. Well-nourished. EYES: EOMI. Anicteric. HENT: Moist mucous membranes. No scleral icterus. No cervical lymphadenopathy. LUNGS: Clear to auscultation bilaterally. No accessory muscle use. CARDIOVASCULAR: Regular rate and rhythm. No murmur. No JVD. ABDOMEN: Soft, non-tender and non-distended. No palpable masses. EXTREMITIES: No edema. Non-tender. SKIN: No rashes or lesions. Warm. NEUROLOGIC: No focal neurological deficits. CN II-XII grossly intact, but not individually tested. PSYCHIATRIC: Cooperative. Appropriate mood and affect. Current Medications Medications (Trade) Dose Ordered Sig/Abdiel Route Start Time Stop Time Status Last Admin Dose Admin Albumin Human 50 ml @ 0 mls/hr Q8H5 IV 05/10/25 17:00 05/12/25 09:00 05/11/25 05:00 100 MLS/HR Famotidine (Pepcid 20mg Vial) 20 mg BID IV 05/10/25 21:00 06/09/25 20:59 UNV Lactulose (Constulose 20gm/ 30ml Udcup) 20 gm BID PO 05/09/25 09:00 05/10/25 06:41 DC 05/09/25 20:51 20 GM Lactulose (Constulose 20gm/ 30ml Udcup) 20 gm TID PO 05/10/25 07:00 05/10/25 11:48 DC Lactulose (Constulose 20gm/ 30ml Udcup) 45 gm TID PO 05/10/25 14:00 06/09/25 13:59 05/11/25 09:57 45 GM Multivitamins/ Minerals 10 ml/ Folic Acid 1 mg/ Thiamine HCl 100 mg/Sodium Chloride 1,010 ml @ 50 mls/hr Q24H IV 05/11/25 14:00 05/14/25 10:11 Octreotide Acetate 1250 mcg/ Sodium Chloride 250 ml @ 0 mls/hr PROTOCOL IV 05/11/25 13:00 06/10/25 12:59 Pantoprazole Sodium (PROTonix 40MG TAB) 40 mg DAILY PO 05/09/25 09:00 05/11/25 12:35 DC 05/11/25 09:57 40 MG Pantoprazole Sodium 80 mg/ Sodium Chloride 100 ml @ 10 mls/hr Q10H IV 05/11/25 13:00 06/10/25 12:59 Sodium Bicarbonate (Sodium Bicarbonate) 650 mg QID PO 05/11/25 09:00 06/10/25 08:59 05/11/25 09:57 650 MG Sodium Chloride 1,000 ml @ 75 mls/hr [id number] IV 05/10/25 12:00 05/11/25 12:35 DC 05/11/25 01:24 75 MLS/HR Thiamine HCl (Vitamin B-1) 100 mg DAILY PO 05/11/25 09:00 05/11/25 12:40 DC 05/11/25 09:57 100 MG Thiamine HCl (Vitamin B-1) 100 mg DAILY PO 05/14/25 09:00 06/13/25 08:59 LABORATORY: [ ] Hematology Labs: Test 05/12/25 03:51 05/11/25 03:57 05/10/25 15:58 Range/Units White Blood Count 8.9 # 4.8-10.8 K/uL Red Blood Count 2.68 #L 4.50-6.20 MIL/uL Hemoglobin 8.8 #L 14.0-18.0 g/dL Hematocrit 26.1 #L 42-54 % Mean Corpuscular Volume 97.4 79-99 fL Mean Corpuscular Hemoglobin 32.8 27.0-33.0 pg Mean Corpuscular Hemoglobin Concent 33.7 32.0-36.0 g/dL Red Cell Distribution Width 16.6 H 11.0-15.5 % Platelet Count 60 L 130-400 K/uL Mean Platelet Volume 13.4 H 7.5-10.5 fL Nucleated Red Blood Cells 0.0 0.0-0.19 % Segmented Neutrophils % 58 40-70 % Lymphocytes % (Manual) 19 L 22-44 % Monocytes % (Manual) 10 H 2-9 % Eosinophils % (Manual) 13 H 1-6 % Differential Comment MANUAL DIFFERENTIAL White Cell Morphology Comment See comments Platelet Morphology Comment DECREASED Red Blood Cell Morphology See comments Band Neutrophils % 2 0-2 % Basophils % (Manual) 1 0-2 % Chemistry Labs: Test 05/12/25 03:51 05/11/25 03:57 Range/Units Sodium Level 152 H 136-145 mmol/L Potassium Level 3.9 3.5-5.1 mmol/L Chloride Level 125 *H 101-111 mmol/L Carbon Dioxide Level 12 L 21-32 mmol/L Blood Urea Nitrogen 51 H 7-18 mg/dL Creatinine 2.3 H 0.5-1.3 mg/dL Glomerular Filtration Rate Calc 31 >90 mL/min Random Glucose 128 H 70-105 mg/dL Total Calcium 8.1 L 8.5-10.1 mg/dL Magnesium Level 2.40 1.80-2.40 mg/dL Total Bilirubin 1.3 #H 0.2-1.0 mg/dL Aspartate Amino Transf (AST/SGOT) 68 H 10-37 U/L Alanine Aminotransferase (ALT/SGPT) 45 # 12-78 U/L Alkaline Phosphatase 203 H 50-136 U/L Ammonia 163 *H 11-32 umol/L Total Protein 6.0 6.0-8.3 g/dL Albumin 2.7 #L 3.5-5.0 g/dL Uric Acid 14.5 H 2.6-7.2 mg/dL Phosphorus Level 3.9 2.5-4.9 mg/dL DIAGNOSTICS / RADIOLOGY: [place] [id number] IMAGING REPORT Signed PATIENT: KEVIN REINOSO MR#: [id number] : 1960 SEX: M AGE: 65 LOCATION: [facility] ORDER 4 STATUS: ADM IN REPORT#: [id number] SERVICE 3 REASON: fly ORDERING PHYSICIAN: MARGARITO PRASAD APRN PROCEDURE: RENAL - US RENAL SONOGRAM EXAMINATION: ULTRASOUND OF THE RETROPERITONEUM. CLINICAL HISTORY: FLY. COMPARISON: None provided. TECHNIQUE: Real-time grayscale and color ultrasound images of the kidneys. FINDINGS: The kidneys are normal in caliber; the right kidney measures 10.0 x 4.9 x 4.8 cm in its craniocaudal, AP, and transverse dimensions, and the left kidney measures 9.7 x 5.1 x 4.0 cm in its craniocaudal, AP, and transverse dimensions. There is normal renal cortical thickness and increased cortical echogenicity. There is no renal calculus. There is no hydronephrosis. The urinary bladder is normal in caliber and wall thickness (0.4 cm). There are no calculi in the urinary bladder. Incidentally noted, dilated splenic vein that measures 2.1 cm. IMPRESSION: Increased cortical echogenicity, may reflect renal parenchymal disease. Recommend clinical correlation and laboratory parameters. Dilated splenic vein may reflect aneurysm. Recommend contrast enhanced CT abdomen and pelvis. /[place] DICTATED BY: CARI HERRING Jr., MD DATE: 05/10/251515 ELECTRONICALLY SIGNED BY: CARI HERRING Jr., MD DATE: 05/10/251515 PATIENT: KEVIN REINOSO MR#: [id number] : 1960 SEX: M AGE: 65 LOCATION: [facility] ORDER 1234 STATUS: ADM IN REPORT#: [id number] SERVICE 1233 REASON: congestion pna ORDERING PHYSICIAN: MARGARITO PRASAD APRN PROCEDURE: CXR1VW - CHEST 1VW EXAM: CR Chest, 1 View. CLINICAL HISTORY: congestion pna COMPARISON: X-ray chest 03/26/2025 FINDINGS: LUNGS: There is no mass, infiltrate, or acute pulmonary abnormality. PLEURAL SPACES: No evidence of pleural effusion or pneumothorax. MEDIASTINUM: The cardiomediastinal silhouette is within normal limits. BONES: No acute osseous abnormality. IMPRESSION: No acute cardiopulmonary pathology is evident. No significant change /[facility] DICTATED BY: TRAVIS SHEIKH MD DATE: 05/09/251744 ELECTRONICALLY SIGNED BY: TRAVIS SHEIKH MD DATE: 05/09/251744 PATIENT: KEVIN REINSOO MR#: [id number] : 1960 SEX: M AGE: 65 LOCATION: [facility] ORDER 10 STATUS: ADM IN REPORT#: [id number] SERVICE 09 REASON: confusion AMS ORDERING PHYSICIAN: ASHLEY MORGAN MD PROCEDURE: HEAD WO - CT HEAD/BRAIN W/O CONTRAST EXAM: Non-contrast CT examination of the Brain CLINICAL HISTORY: Confusion. Altered mental status. TECHNIQUE: Thin collimated axial CT images of the brain were obtained, with sagittal and coronal reformatted images also submitted. CT scan done according to ALARA (As Low as Reasonably Achievable). CONTRAST USED: None. COMPARISON: Prior CT brain dated 03/26/25. FINDINGS: No acute intracranial abnormality is present. No acute cortical infarction, hemorrhage, mass, or mass effect. Small, ill-defined hypodensities in the bilateral cerebral white matter suggest mild chronic ischemic changes secondary to small vessel disease. Mild to moderate generalized cerebral atrophy, more for the given age. No hydrocephalus or abnormal extra-axial fluid collections. The posterior fossa is unremarkable. The skull base and calvarium are intact. The included portions of the paranasal sinuses and mastoid air cells are clear. IMPRESSION: No acute intracranial abnormality is present. Mild chronic ischemic changes secondary to small vessel disease. Mild to moderate generalized cerebral atrophy, more for the given age. No significant interval changes. /[place] DICTATED BY: CARI HERRING Jr., MD DATE: 05/09/25147 ELECTRONICALLY SIGNED BY: CARI HERRING Jr., MD DATE: 05/09/25147 ASSESSMENT: Acute on chronic renal failure Anemia Metabolic encephalopathy Psoriasis Hepatic encephalopathy Pancytopenia Liver cirrhosis PLAN: Labs, diagnostic, radiologic exams reviewed and interpreted by myself and supervising physician. We have reviewed external records in detail Require close monitoring of renal function and electrolytes Order CBC, CMP,and electrolytes in am BiPAP as necessary, for respiratory distress Monitor blood pressure adjust medication doses as needed Avoid hypotensive episodes May use Dilaudid 0.5 mg IV every 6 hours as needed for severe pain Monitor blood sugars Strict intake, output, and daily weight should be monitored Please renally adjust medications Avoid nephrotoxic and nonsteroidal drugs Avoid contrast if possible Will continue to monitor renal function, anemia, electrolytes Treatment plan discussed with patient Questions were answered We have discussed with the other team physicians in detail about the care plan We will continue to monitor the patient closely ATTESTATION BY PHYSICIAN I have seen and examined the patient. I reviewed the documentation, medical decision making, and treatment plan as noted by the mid-level provider above. I agree with the findings and plan of care. JENNY SAENZ MD, [facility] May 12, 2025 14:27
[2025-05-13] VITALS (7 sets, daily range): BP systolic 157–195; BP diastolic 78–96; PULSE 73–101; RESP 16–20; TEMP 97.5–98.9; O2SAT 98–100
[2025-05-13 03:50] LABS: IMMATURE GRANULOCYTE ABSOLUTE 0.04 K/uL (0-1); NUCLEATED RED BLOOD CELLS 0.0 % (0.0-0.19); PLATELET COUNT (AUTO) 44 K/uL (130-400); RED BLOOD CELL COUNT(AUTO) 2.60 MIL/uL (4.50-6.20); RED CELL DISTRIBUTION WIDTH 16.5 % (11.0-15.5); WHITE BLOOD COUNT (AUTO) 8.6 K/uL (4.8-10.8)
[2025-05-13 04:15] LABS: ASPARTATE AMINOTRANSFERASE 44.0 U/L (10-37); CREATININE 2.5 mg/dL (0.5-1.3); GLOMERULAR FILTR. RATE CALC 28.0 mL/min (>90); GLUCOSE,RANDOM 135.0 mg/dL (70-105); PHOSPHORUS 3.9 mg/dL (2.5-4.9); SODIUM SERUM 150.0 mmol/L (136-145); TOTAL PROTEIN, SERUM 6.0 g/dL (6.0-8.3); UREA NITROGEN, BLOOD 51.0 mg/dL (7-18)
[2025-05-13] MEDS: SODIUM BICARB 50MEQ 50ML VIAL IV ONE ×2 (06:30→11:44)
[2025-05-13] MEDS: SODIUM BICARBONATE 650 MG TAB PO SCH (08:30)
--- NOTE | 2025-05-13 09:04 | PN ---
[facility] PROGRESS NOTE Date of Service: May 13, 2025 Time of Service: 08:[address] Hernandez SUBJECTIVE: [ 05/08 Patient's reports that she brought the patient to the emergency department with a chief complaint of altered mental status. Onset was yesterday at 1800. Location is head. Duration is constant. Character is described as delayed speech. There was no alleviating factors. There was no aggravating factors. Patient reports multiple episodes in the last three months secondary to patient's liver cirrhosis. Today in the emergency department WBCs 3.4, hemoglobin 7.6, hematocrit 23.0, platelets 66, creatinine 2.5, BUN 62, alkaline phosphatase 232, ammonia 79, urinalysis unremarkable, toxicology unremarkable. Emergency room physician recommended patient be admitted with a diagnosis of encephalopathy. 05/09 was seen by nurse practitioner and physician during rounding in room 332. Patient's ammonia level today is 79. Patient is more alert and oriented. Family members/ at the bedside. CT head brain was negative. Creatinine has improved and compared to the previous admission is about stable. We will order chest x-ray and physical therapy. UA negative for leukocytosis. We will continue to monitor patient in the meantime. A.m. lab 05/10 patient was seen by nurse practitioner and physician during rounding in room 332. Patient has some psoriasis on his side back. Benadryl was ordered. Patient's hemoglobin today was 6.7 repeat seven. We will repeat CBC later afternoon and if hemoglobin we will be less than seven we will transfuse one PRBC, no repeat CBC, just transfuse place. Occult blood was ordered. Iron panel was ordered as well and we placed patient on fluids 0.9 at 75 mL/hour. Today ammonia was also elevated we switch lactulose from 20 mL t.i.d. to 45 mL t.i.d. patient is pending PT. We also consulted Nephrology for worsening renal function. We will continue to monitor patient in the meantime. A.m. labs] 05/11 patient with past medical history of liver cirrhosis, admitted with chief complaint of altered mental status, found to have anemia with a stool occult blood positive. patient has been upgraded to the PCU. At the time of my visit he walked out of the restroom, had a p.m., looks mildly dark, nonbloody. He is alert oriented x2, chronically ill-appearing, denies chest pain, shortness shortness for breath, no nausea, no vomiting, no abdominal discomfort. Blood pressure 145/52, afebrile, saturating normal on room air. Hemoglobin 6.3, hematocrit 18.9, WBC 2.5, platelet count of 50. Sodium 151, potassium 4.3, BUN 53, creatinine 2.1, bicarbonate of 14. Ammonia level 232. ABG pH of 7.33, pCO2 21, bicarbonate of 10.8. Stool occult blood positive. Patient to receive 1 unit of PRBC, follow CBC post transfusion. GI consultation requested, follow input and recommendation. Continue Protonix and octreotide drip. Continue lactulose, follow ammonia level in a.m.. We will give sodium bicarbonate IV 50 mEq. Start sodium bicarb tablets 650 mg p.o. q.i.d.. Nephrology consultation requested, follow input and recommendation. 05/12 patient was seen by nurse practitioner and physician during rounding in room 228. Patient is s/p one PRBC yesterday. Most recent hemoglobin 8.8 hematocrit 26.1. Stool occult positive patient is pending EGD today as per GI. Ammonia level has improved 163 today. Sodium 152 potassium 3.9 creatinine 2.3 GFR 31. Continue Protonix and octreotide drip. Continue lactulose for ammonia levels a.m. labs 05/13 patient was seen by nurse practitioner and physician during rounding in room 228. Patient is complaining of abdominal pain and distention. We will order IR paracentesis. Also during the feeding patient was fed by his in the lying position. Patient started to choke nurse practitioner and RN witness above-stated incident. The waist patient up and patient was able to come off the food. Nurse practitioner instructed to on how to properly her /positioning. We will order chest x-ray and speech therapy for swallowing eval. Patient we will also receive sodium bicarb x2 doses periods stable H&H periods EGD was performed yesterday 05/12/2025 and was normal. GI signs of follow up in two weeks. We will continue to monitor the patient in meantime. A.m. labs REVIEW OF SYSTEMS CONSTITUTIONAL: Denies fevers, chills, or night sweats. No unintentional weight loss reported. NEUROLOGICAL: Denies headache, amaurosis fugax, motor weakness, sensory deficit, vertigo/spinning sensation, gait abnormalities, or tremors. ENT: No hearing loss, otalgia, otorrhea, rhinitis, rhinorrhea, hoarseness, or sore throat. CARDIOVASCULAR: Denies any exertional angina, dyspnea on exertion, orthopnea, paroxysmal nocturnal dyspnea, palpitations, life-threatening arrhythmias, claudication. PULMONARY: Denies any shortness of breath, cough, phlegm/sputum, hemoptysis, pleuritic chest pain. SLEEP: Denies morning headaches, daytime somnolence or napping. Denies difficulty falling asleep, staying asleep, waking from sleep. Denies knowledge of snoring. GASTROINTESTINAL: Denies any type of dysphagia to either liquids or solids. Denies nausea, vomiting, pyrosis, early satiety, abdominal pain, diarrhea, constipation, or changes in stool consistency or caliber. Denies coffee-ground emesis, hematemesis, hematochezia, or melanotic stools. Complains of abdominal distention GENITOURINARY: Denies frequency, urgency, nocturia, hematuria or incontinence (Storage/Irritative symptoms.) Low urinary stream, straining to void, urinary intermittency or hesitancy, splitting of the voiding stream, terminal dribbling. ENDOCRINOLOGIC: Denies polyuria, polydipsia, polyphagia or heat/cold intolerances. HEMATOLOGIC: Denies thrombophilia/previous clots, or coagulopathy/bleeding disorders. ONCOLOGIC: Denies personal history of malignancy. DERMATOLOGIC: Denies rashes or pruritus. PSYCHIATRIC: Denies any suicidal or homicidal ideation. Denies hallucinations. PHYSICAL EXAM GENERAL APPEARANCE: The patient is awake, alert, and oriented, in no acute cardiopulmonary distress. NEUROLOGICAL: Cranial nerves II-XII grossly intact. Motor is 5/5 in bilateral upper and lower extremities proximal to distal. No sensory deficits. HEENT: Face is symmetric. Pupils are equal and reactive. Extraocular movements are intact. NECK: Supple. No JVD. No thyromegaly. No submental, submandibular, pre- /postauricular, occipital or supraclavicular lymphadenopathy. CHEST: Normal chest expansion. No Telemetry. LUNGS: Absence of any rales, rhonchi or any wheezing. CARDIOVASCULAR: Regular. S1 and S2 normal. No appreciable rubs, murmurs or gallops. ABDOMEN: Soft, nontender, and There is no rebound, voluntary guarding, or rigidity. Distended : Deferred. No Kelly. EXTREMITIES: Non-edematous and not cyanotic. No clubbing. Good capillary refill. SKIN: No skin breakdown. Vital Signs (last 8hr) Date Time Temp Pulse Resp B/P (MAP) Pulse Ox O2 Delivery O2 Flow Rate FiO2 05/13/25 07:00 97.9 73 18 162/83 100 Room Air 05/13/25 04:12 98.8 91 18 169/84 100 Room Air LABS: Laboratory: Test 05/13/25 03:24 Range/Units White Blood Count 8.6 4.8-10.8 K/uL Red Blood Count 2.60 L 4.50-6.20 MIL/uL Hemoglobin 8.5 L 14.0-18.0 g/dL Hematocrit 25.2 L 42-54 % Mean Corpuscular Volume 96.9 79-99 fL Mean Corpuscular Hemoglobin 32.7 27.0-33.0 pg Mean Corpuscular Hemoglobin Concent 33.7 32.0-36.0 g/dL Red Cell Distribution Width 16.5 H 11.0-15.5 % Platelet Count 44 #L 130-400 K/uL Mean Platelet Volume 13.9 H 7.5-10.5 fL Immature Granulocyte % (Auto) 0.5 0-1 % Neutrophils (%) (Auto) 79.8 H 40.0-77.0 % Lymphocytes (%) (Auto) 12.6 L 21.0-51.0 % Monocytes (%) (Auto) 6.5 3.0-13.0 % Eosinophils (%) (Auto) 0.5 0.0-8.0 % Basophils (%) (Auto) 0.1 0.0-5.0 % Neutrophils # (Auto) 6.8 1.8-7.7 K/uL Lymphocytes # (Auto) 1.1 1.0-4.8 K/uL Monocytes # (Auto) 0.6 0.1-1.0 K/uL Eosinophils # (Auto) 0.04 0.00-0.70 K/uL Basophils # (Auto) 0.01 0.00-0.20 K/uL Absolute Immature Granulocyte (auto 0.04 0-1 K/uL Nucleated Red Blood Cells 0.0 0.0-0.19 % Sodium Level 150 H 136-145 mmol/L Potassium Level 3.7 3.5-5.1 mmol/L Chloride Level 121 *H 101-111 mmol/L Carbon Dioxide Level 13 L 21-32 mmol/L Blood Urea Nitrogen 51 H 7-18 mg/dL Creatinine 2.5 H 0.5-1.3 mg/dL Glomerular Filtration Rate Calc 28 >90 mL/min Random Glucose 135 H 70-105 mg/dL Total Calcium 7.8 L 8.5-10.1 mg/dL Phosphorus Level 3.9 2.5-4.9 mg/dL Magnesium Level 2.20 1.80-2.40 mg/dL Total Bilirubin 1.1 H 0.2-1.0 mg/dL Aspartate Amino Transf (AST/SGOT) 44 H 10-37 U/L Alanine Aminotransferase (ALT/SGPT) 34 # 12-78 U/L Alkaline Phosphatase 164 H 50-136 U/L Ammonia 151 *H 11-32 umol/L Total Protein 6.0 6.0-8.3 g/dL Albumin 2.5 L 3.5-5.0 g/dL Current Medications Medications (Trade) Dose Ordered Sig/Abdiel Route PRN Reason Start Time Stop Time Status Last Admin Dose Admin Acetaminophen (TYLenol 325MG TAB) 650 mg Q4H PRN PO MILD PAIN (1-3) 05/09/25 01:30 06/08/25 01:29 05/11/25 14:01 650 MG Acetaminophen (TYLenol 325MG TAB) 650 mg Q4H PRN PO MILD PAIN (1-3) 05/10/25 12:00 05/11/25 06:42 DC Acetaminophen (TYLenol 325MG TAB) 650 mg Q6H PRN PO TEMPERATURE GREATER THAN 101.5 05/10/25 12:00 06/09/25 11:59 Al Hydroxide/Mg Hydroxide (MAALox PLUS 30ML) 30 ml Q6H PRN PO INDIGESTION 05/10/25 12:00 06/09/25 11:59 Albumin Human 50 ml @ 0 mls/hr Q8H5 IV 05/10/25 17:00 05/12/25 09:00 DC 05/12/25 04:47 50 MLS/HR Diphenhydramine HCl (BENAdryl CAP) 25 mg Q4H PRN PO MILD ITCHING/RASH 05/10/25 12:00 06/09/25 11:59 Diphenhydramine HCl (BENAdryl INJ) 25 mg Q6H PRN IV SEVERE ITCHING/RASH 05/10/25 12:00 06/09/25 11:59 05/10/25 13:30 25 MG Famotidine (Pepcid 20mg Vial) 20 mg BID IV 05/10/25 21:00 06/09/25 20:59 UNV Famotidine (Pepcid 20mg Vial) 20 mg BID PRN IV NAUSEA/VOMITING 05/10/25 12:00 06/09/25 11:59 UNV Guaifenesin/ Dextromethorphan (RobiTUSSin DM 200/20MG 10ML) 10 ml Q4H PRN PO COUGH 05/10/25 12:00 06/09/25 11:59 Hydralazine HCl (APRESOLine 20MG INJ) 5 mg Q6H PRN IV ADMINISTER FOR SBP > 160 05/11/25 12:30 06/10/25 12:29 05/12/25 04:50 5 MG Hydralazine HCl (APRESOLine 20MG INJ) 10 mg Q6H PRN IV For:SBP above 160;DBP above 90 05/09/25 01:30 05/11/25 12:31 DC Hydralazine HCl (APRESOLine 20MG INJ) 10 mg Q6H PRN IV For:SBP above 160;DBP above 90 05/10/25 12:00 06/09/25 11:59 UNV Lactulose (Constulose 20gm/ 30ml Udcup) 20 gm BID PO 05/09/25 09:00 05/10/25 06:41 DC 05/09/25 20:51 20 GM Lactulose (Constulose 20gm/ 30ml Udcup) 20 gm BID PRN PO CONSTIPATION 05/10/25 12:00 05/11/25 12:35 DC Lactulose (Constulose 20gm/ 30ml Udcup) 20 gm TID PO 05/10/25 07:00 05/10/25 11:48 DC Lactulose (Constulose 20gm/ 30ml Udcup) 45 gm TID PO 05/10/25 14:00 06/09/25 13:59 05/13/25 08:30 45 GM Morphine Sulfate (morPHINE 2MG SYG) 2 mg Q4H PRN IVP SEVERE PAIN (7-10) 05/09/25 01:30 05/11/25 12:35 DC Multivitamins/ Minerals 10 ml/ Folic Acid 1 mg/ Thiamine HCl 100 mg/Sodium Chloride 1,010 ml @ 50 mls/hr Q24H IV 05/11/25 14:00 05/14/25 10:11 05/12/25 13:54 50 MLS/HR Nitroglycerin (Nitrostat) 0.4 mg PROTOCOL PRN SL CHEST PAIN 05/10/25 12:00 06/09/25 11:59 Octreotide Acetate 1250 mcg/ Sodium Chloride 250 ml @ 0 mls/hr PROTOCOL IV 05/11/25 13:00 05/12/25 16:05 DC 05/12/25 05:43 5 MLS/HR Ondansetron HCl (zoFRAN 4MG INJ) 4 mg Q6H PRN IV NAUSEA/VOMITING 05/09/25 01:30 06/08/25 01:29 Ondansetron HCl (zoFRAN 4MG INJ) 4 mg Q6H PRN IV NAUSEA/VOMITING 05/10/25 12:00 06/09/25 11:59 UNV Pantoprazole Sodium (PROTonix 40MG TAB) 40 mg DAILY PO 05/09/25 09:00 05/11/25 12:35 DC 05/11/25 09:57 40 MG Pantoprazole Sodium 80 mg/ Sodium Chloride 100 ml @ 10 mls/hr Q10H IV 05/11/25 13:00 05/12/25 16:05 DC 05/12/25 08:58 10 MLS/HR Sodium Bicarbonate (Sodium Bicarbonate) 650 mg QID PO 05/11/25 09:00 05/13/25 06:26 DC 05/12/25 20:29 650 MG Sodium Bicarbonate (Sodium Bicarbonate) 1,300 mg QID PO 05/13/25 09:00 05/15/25 08:59 05/13/25 08:30 1,300 MG Sodium Bicarbonate (Sodium Bicarb 50meq 50ml Vial) 50 meq ONCE IV 05/12/25 13:30 05/12/25 17:30 DC 05/12/25 13:52 50 MEQ Sodium Bicarbonate (Sodium Bicarb 50meq 50ml Vial) 50 meq ONCE IV 05/12/25 19:00 05/12/25 23:00 DC Sodium Bicarbonate (Sodium Bicarb 50meq 50ml Vial) 50 meq ONCE IV 05/12/25 23:55 05/13/25 04:00 DC Sodium Chloride 1,000 ml @ 75 mls/hr [id number] IV 05/10/25 12:00 05/11/25 12:35 DC 05/11/25 01:24 75 MLS/HR Thiamine HCl (Vitamin B-1) 100 mg DAILY PO 05/11/25 09:00 05/11/25 12:40 DC 05/11/25 09:57 100 MG Thiamine HCl (Vitamin B-1) 100 mg DAILY PO 05/14/25 09:00 06/13/25 08:59 Zolpidem Tartrate (AmbIEN) 5 mg HS PRN PO INSOMNIA 05/10/25 12:00 05/11/25 12:35 DC DIAGNOSTICS / RADIOLOGY: [ ] ASSESSMENT: Metabolic encephalopathy, POA Uremia, POA Acute blood loss unknown origin POA Status post EGD normal Multifactorial anemia POA Psoriasis POA Acute kidney injury, POA creatinine from 03/29/2025 which was 2.1, today it is 2.5. Hepatic encephalopathy, POA Pancytopenia, POA Liver cirrhosis, POA Status post ascites PLAN: Patient s/p 1 unit of PRBC, on Patient is complaining of abdominal pain and distention. We will order IR paracentesis. during the feeding patient was fed by his in the lying position. Patient started to choke nurse practitioner and RN witness above-stated incident. The waist patient up and patient was able to come off the food. Nurse practitioner instructed to on how to properly her /positioning. We will order chest x-ray and speech therapy for swallowing eval. Patient we will also receive sodium bicarb x2 doses periods stable H&H. EGD 05/12/2025 and was normal. As per GI they signed off follow up outpatient two weeks Continue Protonix and octreotide drip. Continue lactulose We will give sodium bicarbonate IV 50 mEq. Nephrology consultation requested, follow input and recommendation. NEURO: Minimize central acting medications as possible. Fall Precautions. Well lighted room through the day and minimize interruptions through the night to prevent acute delirium. PULMONARY: Supplemental 02 as needed BiPAP as necessary, for respiratory distress Titrate Fio2 to keep Spo2 > or = 90% DuoNebs and CPT as needed IS hourly while awake for pulmonary hygiene prn Out of bed to chair as tolerated Maintain aspiration precautions at all times CARDIOVASCULAR: Follow hemodynamics. Vital signs per facility protocol GI & NUTRITION: Continue nutritional support Aspirations precautions Prokinetic agents and laxatives as needed KIDNEYS & ELECTROLYTES: Strict monitoring of intake and output Daily weights Avoid nephrotoxic agents Monitor electrolytes and replace as needed Goal urine output of 30mL/hr or 0.5mL/kg/hr Medications to be dosed according to renal function. Avoid contrast if possible ENDOCRINE: Maintain blood glucose between 100-180 at all times. Insulin sliding scale for blood glucose management Hypoglycemia and hyperglycemia protocol in place INFECTIOUS DISEASE: Trend temperature, WBC and procalcitonin level Follow cultures, deescalate antibiotics as soon as possible. Panculture if new onset fever HEMATOLOGY & COAGULATION: Monitor H&H. Keep Hgb > 7 Transfuse 1 unit of PRBC for Hgb < 7 Transfuse 1 pack of platelets of platelets < 20, 000 Watch for any signs and symptoms of bleeding SKIN: Pressure ulcer prevention per facility protocol Specialty mattress as needed ORTHO/REHAB Continue PT/OT PRN: MEDICATIONS Tylenol 650 mg po every 4 hrs for fever zofran 4 mg IV every 6 hrs for n/v Hydralazine 5 mg IV every 4 hrs systolic pressure > 160 bowel regiment: lactulose 20 gm PO BID PRN constipation Supportive measures: Continue GI and DVT prophylaxis Disposition: Pending improvement in clinical condition All questions answered time spent: > 35 min ATTESTATION BY PHYSICIAN I have seen and examined the patient. I reviewed the documentation, medical dec ision making, and treatment plan as noted by the mid-level provider above. I agree with the findings and plan of care. MARGARITO Salazar MD APPE[employer]ATE LAW CLERK May 13, 2025 09:04
--- NOTE | 2025-05-13 10:08 | PN ---
NEPHROLOGY PROGRESS NOTE Date/Time Patient Seen: May 13, 2025 Reason for Consultation: 10:08 SUBJECTIVE: This is a 65-year-old male with known history of cirrhosis of the liver was brought to the emergency room by his with complaints of confusion and disorientation. She indicated that he has been taking rifaximin for the past 10 days although he was recommended for 30 days. He has been in the hospital for several days He was noted with worsening renal failure We are consulted for renal failure Renal function is elevated Electrolytes are noted Hemoglobin today was 8.5 g/dL, pending PRBC transfusion on 05/11 S/p EGD Pending paracentesis on Wednesday. Imaging studies were noted He was seen in the medical floor, in no acute distress Family at the bedside Prognosis remains guarded REVIEW OF SYSTEMS: GENERAL: Negative for any nausea, vomiting, fevers, chills, or weight loss. NEUROLOGIC: Negative for any blurry vision, blind spots, double vision, facial asymmetry, dysphagia, dysarthria, hemiparesis, hemisensory deficits, vertigo, ataxia. HEENT: Negative for any head trauma, neck trauma, neck stiffness, photophobia, phonophobia, sinusitis, rhinitis. CARDIAC: Negative for any chest pain, dyspnea on exertion, paroxysmal nocturnal dyspnea, peripheral edema. PULMONARY: Negative for any shortness of breath, wheezing, COPD, or TB exposure. GASTROINTESTINAL: Negative for any abdominal pain, nausea, vomiting, bright red blood per rectum, melena. GENITOURINARY: Negative for any dysuria, hematuria, incontinence. INTEGUMENTARY: Negative for any rashes, cuts, insect bites. RHEUMATOLOGIC: Negative for any joint pains, photosensitive rashes, history of vasculitis or kidney problems. HEMATOLOGIC: Negative for any abnormal bruising, frequent infections or bleeding. Vital Signs (last 8hr) Date Time Temp Pulse Resp B/P (MAP) Pulse Ox O2 Delivery O2 Flow Rate FiO2 05/13/25 07:00 97.9 73 18 162/83 100 Room Air 05/13/25 04:12 98.8 91 18 169/84 100 Room Air PHYSICAL EXAM: GENERAL: Alert and oriented x 3. No acute distress. Well-nourished. EYES: EOMI. Anicteric. HENT: Moist mucous membranes. No scleral icterus. No cervical lymphadenopathy. LUNGS: Clear to auscultation bilaterally. No accessory muscle use. CARDIOVASCULAR: Regular rate and rhythm. No murmur. No JVD. ABDOMEN: Soft, non-tender and non-distended. No palpable masses. EXTREMITIES: No edema. Non-tender. SKIN: No rashes or lesions. Warm. NEUROLOGIC: No focal neurological deficits. CN II-XII grossly intact, but not individually tested. PSYCHIATRIC: Cooperative. Appropriate mood and affect. Current Medications Medications (Trade) Dose Ordered Sig/Abdiel Route Start Time Stop Time Status Last Admin Dose Admin Albumin Human 50 ml @ 0 mls/hr Q8H5 IV 05/10/25 17:00 05/12/25 09:00 05/11/25 05:00 100 MLS/HR Famotidine (Pepcid 20mg Vial) 20 mg BID IV 05/10/25 21:00 06/09/25 20:59 UNV Lactulose (Constulose 20gm/ 30ml Udcup) 20 gm BID PO 05/09/25 09:00 05/10/25 06:41 DC 05/09/25 20:51 20 GM Lactulose (Constulose 20gm/ 30ml Udcup) 20 gm TID PO 05/10/25 07:00 05/10/25 11:48 DC Lactulose (Constulose 20gm/ 30ml Udcup) 45 gm TID PO 05/10/25 14:00 06/09/25 13:59 05/11/25 09:57 45 GM Multivitamins/ Minerals 10 ml/ Folic Acid 1 mg/ Thiamine HCl 100 mg/Sodium Chloride 1,010 ml @ 50 mls/hr Q24H IV 05/11/25 14:00 05/14/25 10:11 Octreotide Acetate 1250 mcg/ Sodium Chloride 250 ml @ 0 mls/hr PROTOCOL IV 05/11/25 13:00 06/10/25 12:59 Pantoprazole Sodium (PROTonix 40MG TAB) 40 mg DAILY PO 05/09/25 09:00 05/11/25 12:35 DC 05/11/25 09:57 40 MG Pantoprazole Sodium 80 mg/ Sodium Chloride 100 ml @ 10 mls/hr Q10H IV 05/11/25 13:00 06/10/25 12:59 Sodium Bicarbonate (Sodium Bicarbonate) 650 mg QID PO 05/11/25 09:00 06/10/25 08:59 05/11/25 09:57 650 MG Sodium Chloride 1,000 ml @ 75 mls/hr [id number] IV 05/10/25 12:00 05/11/25 12:35 DC 05/11/25 01:24 75 MLS/HR Thiamine HCl (Vitamin B-1) 100 mg DAILY PO 05/11/25 09:00 05/11/25 12:40 DC 05/11/25 09:57 100 MG Thiamine HCl (Vitamin B-1) 100 mg DAILY PO 05/14/25 09:00 06/13/25 08:59 LABORATORY: [ ] Hematology Labs: Test 05/13/25 03:24 Range/Units White Blood Count 8.6 4.8-10.8 K/uL Red Blood Count 2.60 L 4.50-6.20 MIL/uL Hemoglobin 8.5 L 14.0-18.0 g/dL Hematocrit 25.2 L 42-54 % Mean Corpuscular Volume 96.9 79-99 fL Mean Corpuscular Hemoglobin 32.7 27.0-33.0 pg Mean Corpuscular Hemoglobin Concent 33.7 32.0-36.0 g/dL Red Cell Distribution Width 16.5 H 11.0-15.5 % Platelet Count 44 #L 130-400 K/uL Mean Platelet Volume 13.9 H 7.5-10.5 fL Immature Granulocyte % (Auto) 0.5 0-1 % Neutrophils (%) (Auto) 79.8 H 40.0-77.0 % Lymphocytes (%) (Auto) 12.6 L 21.0-51.0 % Monocytes (%) (Auto) 6.5 3.0-13.0 % Eosinophils (%) (Auto) 0.5 0.0-8.0 % Basophils (%) (Auto) 0.1 0.0-5.0 % Neutrophils # (Auto) 6.8 1.8-7.7 K/uL Lymphocytes # (Auto) 1.1 1.0-4.8 K/uL Monocytes # (Auto) 0.6 0.1-1.0 K/uL Eosinophils # (Auto) 0.04 0.00-0.70 K/uL Basophils # (Auto) 0.01 0.00-0.20 K/uL Absolute Immature Granulocyte (auto 0.04 0-1 K/uL Nucleated Red Blood Cells 0.0 0.0-0.19 % Chemistry Labs: Test 05/13/25 03:24 Range/Units Sodium Level 150 H 136-145 mmol/L Potassium Level 3.7 3.5-5.1 mmol/L Chloride Level 121 *H 101-111 mmol/L Carbon Dioxide Level 13 L 21-32 mmol/L Blood Urea Nitrogen 51 H 7-18 mg/dL Creatinine 2.5 H 0.5-1.3 mg/dL Glomerular Filtration Rate Calc 28 >90 mL/min Random Glucose 135 H 70-105 mg/dL Total Calcium 7.8 L 8.5-10.1 mg/dL Phosphorus Level 3.9 2.5-4.9 mg/dL Magnesium Level 2.20 1.80-2.40 mg/dL Total Bilirubin 1.1 H 0.2-1.0 mg/dL Aspartate Amino Transf (AST/SGOT) 44 H 10-37 U/L Alanine Aminotransferase (ALT/SGPT) 34 # 12-78 U/L Alkaline Phosphatase 164 H 50-136 U/L Ammonia 151 *H 11-32 umol/L Total Protein 6.0 6.0-8.3 g/dL Albumin 2.5 L 3.5-5.0 g/dL DIAGNOSTICS / RADIOLOGY: [place] [address] IMAGING REPORT Signed PATIENT: KEVIN REINOSO MR#: [id number] : 1960 SEX: M AGE: 65 LOCATION: [facility] ORDER 0645 STATUS: ADM IN REPORT#: [id number] SERVICE 0644 REASON: fly ORDERING PHYSICIAN: MARGARITO PRASAD APRN PROCEDURE: RENAL - US RENAL SONOGRAM EXAMINATION: ULTRASOUND OF THE RETROPERITONEUM. CLINICAL HISTORY: FLY. COMPARISON: None provided. TECHNIQUE: Real-time grayscale and color ultrasound images of the kidneys. FINDINGS: The kidneys are normal in caliber; the right kidney measures 10.0 x 4.9 x 4.8 cm in its craniocaudal, AP, and transverse dimensions, and the left kidney measures 9.7 x 5.1 x 4.0 cm in its craniocaudal, AP, and transverse dimensions. There is normal renal cortical thickness and increased cortical echogenicity. There is no renal calculus. There is no hydronephrosis. The urinary bladder is normal in caliber and wall thickness (0.4 cm). There are no calculi in the urinary bladder. Incidentally noted, dilated splenic vein that measures 2.1 cm. IMPRESSION: Increased cortical echogenicity, may reflect renal parenchymal disease. Recommend clinical correlation and laboratory parameters. Dilated splenic vein may reflect aneurysm. Recommend contrast enhanced CT abdomen and pelvis. /[place] DICTATED BY: CARI HERRING Jr., MD DATE: 05/10/251515 ELECTRONICALLY SIGNED BY: CARI HERRING Jr., MD DATE: 05/10/251515 PATIENT: KEVIN REINOSO MR#: [id number] : 1960 SEX: M AGE: 65 LOCATION: 3A ORDER 1234 STATUS: ADM IN REPORT#: [id number] SERVICE 1233 REASON: congestion pna ORDERING PHYSICIAN: MARGARITO PRASAD APRN PROCEDURE: CXR1VW - CHEST 1VW EXAM: CR Chest, 1 View. CLINICAL HISTORY: congestion pna COMPARISON: X-ray chest 03/26/2025 FINDINGS: LUNGS: There is no mass, infiltrate, or acute pulmonary abnormality. PLEURAL SPACES: No evidence of pleural effusion or pneumothorax. MEDIASTINUM: The cardiomediastinal silhouette is within normal limits. BONES: No acute osseous abnormality. IMPRESSION: No acute cardiopulmonary pathology is evident. No significant change /[place] DICTATED BY: TRAVIS SHEIKH MD DATE: 05/09/251744 ELECTRONICALLY SIGNED BY: TRAVIS SHEIKH MD DATE: 05/09/251744 PATIENT: KEVIN REINOSO MR#: [id number] : 1960 SEX: M AGE: 65 LOCATION: [facility] ORDER 10 STATUS: ADM IN REPORT#: [id number] SERVICE 09 REASON: confusion AMS ORDERING PHYSICIAN: ASHLEY MORGAN MD PROCEDURE: HEAD WO - CT HEAD/BRAIN W/O CONTRAST EXAM: Non-contrast CT examination of the Brain CLINICAL HISTORY: Confusion. Altered mental status. TECHNIQUE: Thin collimated axial CT images of the brain were obtained, with sagittal and coronal reformatted images also submitted. CT scan done according to ALARA (As Low as Reasonably Achievable). CONTRAST USED: None. COMPARISON: Prior CT brain dated 03/26/25. FINDINGS: No acute intracranial abnormality is present. No acute cortical infarction, hemorrhage, mass, or mass effect. Small, ill-defined hypodensities in the bilateral cerebral white matter suggest mild chronic ischemic changes secondary to small vessel disease. Mild to moderate generalized cerebral atrophy, more for the given age. No hydrocephalus or abnormal extra-axial fluid collections. The posterior fossa is unremarkable. The skull base and calvarium are intact. The included portions of the paranasal sinuses and mastoid air cells are clear. IMPRESSION: No acute intracranial abnormality is present. Mild chronic ischemic changes secondary to small vessel disease. Mild to moderate generalized cerebral atrophy, more for the given age. No significant interval changes. /[place] DICTATED BY: CARI HERRING Jr., MD DATE: 05/09/25147 ELECTRONICALLY SIGNED BY: CARI HERRING Jr., MD DATE: 05/09/25147 ASSESSMENT: Acute on chronic renal failure Anemia Metabolic encephalopathy Psoriasis Hepatic encephalopathy Pancytopenia Liver cirrhosis PLAN: Labs, diagnostic, radiologic exams reviewed and interpreted by myself and supervising physician. We have reviewed external records in detail Pending paracentesis on Wednesday Require close monitoring of renal function and electrolytes Order CBC, CMP,and electrolytes in am BiPAP as necessary, for respiratory distress Monitor blood pressure adjust medication doses as needed Avoid hypotensive episodes May use Dilaudid 0.5 mg IV every 6 hours as needed for severe pain Monitor blood sugars Strict intake, output, and daily weight should be monitored Please renally adjust medications Avoid nephrotoxic and nonsteroidal drugs Avoid contrast if possible Will continue to monitor renal function, anemia, electrolytes Treatment plan discussed with patient Questions were answered We have discussed with the other team physicians in detail about the care plan We will continue to monitor the patient closely ATTESTATION BY PHYSICIAN I have seen and examined the patient. I reviewed the documentation, medical decision making, and treatment plan as noted by the mid-level provider above. I agree with the findings and plan of care. JENNY SAENZ MD, [facility] [place] [facility] May 13, 2025 10:08
--- NOTE | 2025-05-13 11:30 | NUR ---
WANTS TO TAKE HOME AND STATES THAT NONE OF THE TREATMENTS THAT HE HAS BEEN GETTING IS HELPING HIM AND THINKS THAT HE MAY DO BETTER AT HOME. NURSING STAFF ADVISED THE THAT SHE WOULD HAVE TO SIGN HIM OUT AMA AND THAT IT WAS THE PATIENT'S CHOICE TO GO AMA AND THAT SHE KNEW THAT HE A PATIENT HAS THAT RIGHT. PLAN OF CARE WAS ADVISED THAT TOMORROW PT IS TO HAVE PARACENTESIS AND CONTINUE WITH THE LACTULOSE TO HELP BRING THE AMMONIA LEVEL DOWN.
--- NOTE | 2025-05-13 11:56 | NUR ---
CALLED NURSE TO ROOM AND APOLOGIZED FOR WANTING TO TAKE PT HOME AND THAT SHE NOTICED THAT WHILE SHE WAS FEEDING HIM HE SEEMED TO BE MORE ALERT AND TALKING TO HER. MORE AWAKE AND COOPERATIVE WITH HER AND SHE APPEARED TO BE MORE SATISFIED WITH HIS PLAN OF CARE. THE LACTULOSE DOSE HAD BEEN EXPLAINED EARLIER AND COMPARED TO HOME DOSE. HOME DOSE WAS 45ML AND HOSPITAL DOSE 45GMS, ADVISED THAT IT WAS A HIGHER DOSE THAN HOME.
[2025-05-14] VITALS (18 sets, daily range): BP systolic 136–213; BP diastolic 64–92; PULSE 71–97; RESP 15–23; TEMP 97.6–99.9; O2SAT 96–100
[2025-05-14 03:44] LABS: IMMATURE GRANULOCYTE ABSOLUTE 0.05 K/uL (0-1); NUCLEATED RED BLOOD CELLS 0.0 % (0.0-0.19); PLATELET COUNT (AUTO) 46 K/uL (130-400); RED BLOOD CELL COUNT(AUTO) 2.45 MIL/uL (4.50-6.20); RED CELL DISTRIBUTION WIDTH 15.9 % (11.0-15.5); WHITE BLOOD COUNT (AUTO) 6.2 K/uL (4.8-10.8)
--- NOTE | 2025-05-14 03:50 | HMCIMG ---
EXAM: CR Chest, 1 view. CLINICAL HISTORY: Aspiration. COMPARISON: Prior chest radiograph dated 05/09/25. FINDINGS: Small stable right pleural effusion with mild right basilar atelectasis. The remaining bilateral lung edge are clear with no acute infiltrates. No pneumothorax. Stable cardiac size. No acute osseous abnormality. Impression: Small stable right pleural effusion with mild right basilar atelectasis. No other interval changes. /[place]
[2025-05-14 04:09] LABS: ASPARTATE AMINOTRANSFERASE 37.0 U/L (10-37); CREATININE 2.4 mg/dL (0.5-1.3); GLOMERULAR FILTR. RATE CALC 29.0 mL/min (>90); GLUCOSE,RANDOM 121.0 mg/dL (70-105); PHOSPHORUS 4.2 mg/dL (2.5-4.9); SODIUM SERUM 147.0 mmol/L (136-145); TOTAL PROTEIN, SERUM 5.0 g/dL (6.0-8.3); UREA NITROGEN, BLOOD 53.0 mg/dL (7-18)
[2025-05-14] MEDS: THIAMINE HCL 100 MG TABLET PO SCH (08:40)
[2025-05-14 09:10] LABS: ABG OXYGEN SATURATION 96.0 % (94.0-98.0); BASE EXCESS,VENOUS BLOOD GAS -7.8 (-2.0-3.0); HCO3,VENOUS BLOOD GAS 15.1 (22.0-29.0); PCO2,VENOUS BLOOD GAS 23 (38-54); PH,VENOUS BLOOD GAS 7.433 (7.320-7.430); PO2,VENOUS BLOOD GAS 90.8 mmHg (23.0-48.0); TEMPERATURE, CELSIUS BG 37.0 CELSIUS (35.5-37.0); VENT MODE, BG NC (ROOM AIR)
[2025-05-14 09:20] LABS: INR 1.11 (0.85-1.15)
[2025-05-14] MEDS: PoTASSium chloRIDE 20MEQ ER 20 MEQ ERTAB PO ONE (09:23)
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
[2025-05-14] MEDS: amLODIPine 2.5 MG TAB PO SCH (10:47)
--- NOTE | 2025-05-14 12:45 | NUR ---
U/S GD PARACENTESIS NOT DONE U/S PERFORMED BY Souleymane JOHNSON. IMAGES REVIEWED BY DR LING. PER DR LING NOT ENOUGH FLUID TO SAFELY PERFORM PROCEDURE. LOREE BARRON NOTIFIED OF OUTCOME. DISCHARGE VIA BED TO ROOM 228 WITH SPOUSE.
--- NOTE | 2025-05-14 15:03 | HMCIMG ---
CLINICAL HISTORY: Evaluation for ascites. COMPARISON: Prior study from 01/19/2022 is available.. TECHNIQUES: All 4 quadrant ultrasound for ascites workup. FINDINGS: All 4 quadrants sonogram demonstrate no ascites identified. IMPRESSION: No ascites identified.
--- NOTE | 2025-05-14 17:10 | NUR ---
BEDSIDE SWALLOW EVAL COMPLETED. No s/s of aspiration. Pt however placed on pureed solids, meds crushed, and thin liquids due to AMS. PLATE PUT IN WORKER will follow up once patient is back to baseline with alertness for possible diet upgrade to regular solids. COMPENSATORY STRATEGIES: 1. sit upright during oral intake 2. small bites/sips 3. slow oral intake 4. supervision during oral intake 5. feed only when patient is fully awake and alert PLATE PUT IN WORKER reviewed results and recommendations with patient, family and nurse Anaid. PLATE PUT IN WORKER educated patient on risks and consequences of aspiration. Speech therapy will follow up. All questions answered. Addendum: 05/14/[address] YARELY GARZA Amended: Links added.
--- NOTE | 2025-05-14 20:12 | PN ---
NEPHROLOGY NOTE SUBJECTIVE: The patient has multiple problems including no fever, chills, rigors. No cough, expectoration or hemoptysis. The patient has no other associated symptoms. No other aggravating or relieving factors. All the other systemic review is unchanged. The patient has no fevers, chills or rigors. The patient is generally weak. REVIEW OF SYSTEMS: All the other systemic review is unchanged. No other associated findings. No other aggravating or relieving factors. OBJECTIVE: GENERAL: Pale, no other distress or deformities, lying in bed. VITAL SIGNS: Blood pressure is around 141/64, pulse 76, respiratory rate is 19, afebrile. HEENT: Head is atraumatic, normocephalic. Pupils are round and reactive. Sclerae are anicteric. Conjunctivae not pale. Oral mucosa is not dry. NECK: Supple. No masses or bruits. Thyroid is palpable. Neck has no bruits. CHEST: Shows equal thoracic percussion, note being resonant in all areas. CARDIAC: Regular rhythm. No rub, no S3, S4. No parasternal heave. LABORATORY DATA: Labs have been reviewed. Hemoglobin has been low up to 8.1. Imaging studies are reviewed. Low potassium, creatinine 2.4. PROBLEMS: * Acute on chronic renal failure. * Electrolyte problem in a patient with multiple comorbidities. * The patient has underlying liver disease. * The patient has encephalopathy. * Uremia. * The patient has previous EGD. * The patient has underlying liver disease. * Cirrhosis. * Previous ascites. PLAN: Continued monitoring. IV albumin as needed. Follow up renal function. Replacement of potassium. Avoid nonsteroidal drugs. Avoid nephrotoxic. A doses of medicine to be adjusted. Condition remained guarded. Thank you for this patient. TID: [id number] RECEIPT: [id number]
--- NOTE | 2025-05-14 20:30 | NUR ---
PT IN BED, ATTEMPTED TO AWAKEN, PARTIALLY OPENS EYES AND DOES NOT FOLLOW COMMANDS. O2 SAT 99% ON 1L PER NC. CALL PLACED TO HOSPITALIST KILN TESTER TO MAKE AWARE
--- NOTE | 2025-05-14 20:37 | NUR ---
RAVI DELUCA BUILDING CONSTRUCTION ESTIMATOR PLANT SECURITY GUARD FOR HOSPITALIST MADE AWARE OF PT STATUS, ORDERS RECEIVED.
[2025-05-14 20:57] LABS: ABG BASE EXCESS -6.1 mmol/L (-2.0-3.0); ABG HCO3 14.1 mmol/L (21.0-28.0); ABG OXYGEN SATURATION 99.1 % (94.0-98.0); ABG PCO2 19 mmHg (35-48); ABG PH 7.501 (7.350-7.450); DEVICE COMMENT RR RN JOE; PO2, ARTERIAL BG 142.1 mmHg (83.0-108.0); TEMPERATURE, CELSIUS BG 37.0 CELSIUS (35.5-37.0); VENT MODE, BG NC (ROOM AIR)
[2025-05-14 21:08] LABS: CREATININE 2.4 mg/dL (0.5-1.3); GLOMERULAR FILTR. RATE CALC 29.0 mL/min (>90); GLUCOSE,RANDOM 137.0 mg/dL (70-105); SODIUM SERUM 141.0 mmol/L (136-145); UREA NITROGEN, BLOOD 53.0 mg/dL (7-18)
[2025-05-14] MEDS: LACTULOSE 20 GM/30 ML UDCUP PO SCH (21:30)
--- NOTE | 2025-05-14 21:45 | NUR ---
HOSPITALIST LEASE ANALYST PAGED TO MAKE AWARE OF AMMONIA LEVEL, RAVI DELUCA ICU NURSE STATES WILL ENTER ORDER FOR LACTULOSE ENEMA
--- NOTE | 2025-05-14 22:10 | NUR ---
LACTULOSE ENEMA ADMINISTERED ORDERED, BIPAP ON ORDERED, TELEMETRY MONITORING.
--- NOTE | 2025-05-14 22:30 | NUR ---
PT CONTINUES ON BIPAP, APPEARS MORE OBTUND, RESPIRATIONS SLIGHTLY MORE LABORED. CALL PLACED TO RAVI DELUCA HORSE FARM MANAGER TO MAKE ADAMS OF PT STATUS, ORDERS RECEIVED TO TRANSFER TO ICU.
[2025-05-14] MEDS: LACTULOSE 20 GM/30 ML UDCUP PR ONE (22:40)
[2025-05-15] VITALS (69 sets, daily range): BP systolic 94–238; BP diastolic 39–115; PULSE 45–109; RESP 10–51; TEMP 96.4–98; O2SAT 100
[2025-05-15] LABS: NUCLEATED RED BLOOD CELLS 0.0 % (0.0-0.19); PLATELET COUNT (AUTO) 53.0 K/uL (130-400); RED BLOOD CELL COUNT(AUTO) 2.61 MIL/uL (4.50-6.20); RED CELL DISTRIBUTION WIDTH 15.8 % (11.0-15.5); WHITE BLOOD COUNT (AUTO) 5.1 K/uL (4.8-10.8)
[2025-05-15 00:07] LABS: CREATININE 2.3 mg/dL (0.5-1.3); GLOMERULAR FILTR. RATE CALC 31.0 mL/min (>90); GLUCOSE,RANDOM 132.0 mg/dL (70-105); SODIUM SERUM 141.0 mmol/L (136-145); UREA NITROGEN, BLOOD 53.0 mg/dL (7-18)
[2025-05-15 00:12] LABS: ASPARTATE AMINOTRANSFERASE 73.0 U/L (10-37); TOTAL PROTEIN, SERUM 5.6 g/dL (6.0-8.3)
[2025-05-15] MEDS: ETOMIDATE 20MG VIAL IVP ONE (00:25)
--- NOTE | 2025-05-15 01:27 | HMCIMG ---
EXAM: CR Chest, 1 view CLINICAL HISTORY: Respiratory failure. Endotracheal tube. COMPARISON: Chest radiograph dated 05/13/2025. FINDINGS: The endotracheal tube tip is 3.1 cm above the natalie. The gastric tube tip overlies the midbody of the stomach. Interval mild left lung volume loss with mild atelectasis and infiltrates in the left lung. Mildly blunted right CP angle, concerning small pleural effusion or pleural thickening. No pneumothorax. Stable cardiac size. No acute osseous abnormality. IMPRESSION: The endotracheal tube tip is 3.1 cm above the natalie. The gastric tube tip overlies the midbody of the stomach. Interval mild left lung volume loss with mild atelectasis and infiltrates in the left lung. Stable right CP angle blunting, concerning small pleural effusion or pleural thickening. /[place]
[2025-05-15 01:53] LABS: ABG BASE EXCESS -7.4 mmol/L (-2.0-3.0); ABG HCO3 15.4 mmol/L (21.0-28.0); ABG OXYGEN SATURATION 94.3 % (94.0-98.0); ABG PCO2 23 mmHg (35-48); ABG PH 7.452 (7.350-7.450); CARBON MONOXIDE 0 % (0.5-1.5); DEVICE COMMENT LR,RN CRISY; PO2, ARTERIAL BG 76.8 mmHg (83.0-108.0); TEMPERATURE, CELSIUS BG 37.0 CELSIUS (35.5-37.0); VENT MODE, BG AC (ROOM AIR)
[2025-05-15] MEDS: SUCCINYLCHOLINE 200MG/10ML SYR IM ONE (02:18)
--- NOTE | 2025-05-15 02:38 | HMCIMG ---
EXAM: CR Chest, 1 view CLINICAL HISTORY: PICC line placement. COMPARISON: Same-day chest radiograph. FINDINGS: The right PICC line tip overlies the proximal SVC. The endotracheal tube tip is 3.1 cm above the natalie. The gastric tube tip overlies the mid body of the stomach. Small pleural effusion on the right side. The remaining lung edge are clear. No pneumothorax. Stable cardiac size. No acute osseous abnormality. IMPRESSION: The right PICC line tip overlies the proximal SVC. The endotracheal tube tip is 3.1 cm above the natalie. The gastric tube tip overlies the midbody of the stomach. Small pleural effusion on the right side. Interval improvement in the left lung aeration. /Ayo
--- NOTE | 2025-05-15 03:14 | CONS ---
[facility] CONSULTATION NOTE Date Patient Seen: May 15, 2025 Time of Visit: 00:01 Supervising Physician: Dr. Sabillon Reason for Consultation: Critical Care management Primary Care Physician: Attending team: [facility] hospitalist team Outpatient Specialists: Inpatient Consults: BIS, critical Care team GI, Nephro PROBLEM LIST: Acute respiratory failure, POA, requiring intubation Hepatic/metabolic encephalopathy, POA Mild left lung volume loss with mild atelectasis and infiltrates in the left lung, per x-ray on 05/15/25 Aspiration pneumonia Cirrhosis of the liver Severe anemia with + stool occult requiring blood transfusions s/p normal EGD on 05/12/25 Psoriasis Acute kidney injury Pancytopenia HPI: Mr. Jansen is a 65-year-old male with a history of liver cirrhosis who presented [place] [facility] [place] for evaluation of altered mental status onset 05/07/2025 at 6:00 p.m.. The patient was admitted under the [facility] team with the diagnosis of a metabolic/hepatic encephalopathy, uremia, and pancytopenia. RN reports that today on 05/14/2025 the patient was lethargic therefore a dose of lactulose was not given due to risk for aspiration. RN reports that later the patient became more alert and was giving a dose of lactulose and the family was allowed to feed the patient. The patient later was not following commands but attempted to open his eyes. The patient became more lethargic, tachypneic, and an ammonia level obtained and ammonia level was 246 (ammonia 81 in a.m.). RN called the [facility] SENIOR STOCK PLAN ADMINISTRATOR who ordered lactulose enema. RN reports that the patient was placed on BiPAP, but became more obtunded, respirations became more unlabored. RN called [facility] against who ordered for the patient to be transferred to ICU. I assessed the patient in ICU 216. The patient was severely distressed. The patient was tachypneic, abdominal breathing, retractions lateral sides the neck, with snoring respirations, on BiPAP. The patient's blood pressure was 190s then increase to 200s. The was at bedside. I informed her that the patient was in respiratory failure despite the BiPAP. The acknowledged the respiratory distress and opted for the patient to be intubated. The patient was intubated at 12:26 a.m. by belt and link shop supervisor without any complications. Chest x-ray: The endotracheal tube tip is 3.1 cm above the natalie. The gastric tube tip overlies the midbody of the stomach. Interval mild left lung volume loss with mild atelectasis and infiltrates in the left lung. Stable right CP angle blunting, concerning small pleural effusion or pleural thickening. I reassessed the patient. The patient's breathing was even, unlabored, on mechanical ventilator. BIS team we will continue monitoring patient closely. Plan and assessment are listed below. 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 PHYSICAL EXAM: GENERAL: Obtunded. In respiratory distress. HEENT: EOMI, Sclera non icteric, moist mucosa NECK: Supple, no JVD, trachea midline LUNGS: Diminished breath sounds bilaterally. No wheezes. Tachypneic, retractions, abdominal breathing, snoring respirations. HEART: Heart rate 90s, regular rate and rhythm. Normal S1 and S2, without murmurs ABD: Abdomen soft, obese, nontender. Bowel sounds present EXT: No clubbing cyanosis or edema NEURO: Severely obtunded, does not open eyes to painful stimuli, but grimaces with painful stimuli. Vital Signs (last 8hr) Date Time Temp Pulse Resp B/P (MAP) Pulse Ox O2 Delivery O2 Flow Rate FiO2 05/15/25 01:04 77 50 05/15/25 00:42 78 12 141/62 100 Ventilator 40 05/15/25 00:38 81 13 133/54 100 Ventilator 40 05/15/25 00:26 102 22 175/74 100 Ventilator 40 05/15/25 00:12 109 26 238/115 100 BIPAP 40 05/15/25 00:09 105 22 220/94 100 BIPAP 40 05/15/25 00:01 92 18 184/81 100 BIPAP 40 05/15/25 00:00 100 Bi-PAP+ 40 05/14/25 23:57 96 18 195/92 100 BIPAP 40 05/14/25 23:42 97.9 97 21 213/80 100 BIPAP 40 05/14/25 23:31 87 18 188/75 100 BIPAP 40 05/14/25 23:27 91 17 197/90 100 BIPAP 40 05/14/25 23:22 92 23 05/14/25 21:12 71 15 05/14/25 20:15 99 Nasal Cannula* 1 05/14/25 20:08 73 16 N/Cannula Low lpm 1.0 05/14/25 19:31 98.8 73 19 136/70 100 Nasal Cannula LABS: Hematology Labs: Test 05/14/25 23:50 05/14/25 03:16 Range/Units White Blood Count 5.1 4.8-10.8 K/uL Red Blood Count 2.61 L 4.50-6.20 MIL/uL Hemoglobin 8.6 L 14.0-18.0 g/dL Hematocrit 24.5 L 42-54 % Mean Corpuscular Volume 93.9 79-99 fL Mean Corpuscular Hemoglobin 33.0 27.0-33.0 pg Mean Corpuscular Hemoglobin Concent 35.1 32.0-36.0 g/dL Red Cell Distribution Width 15.8 H 11.0-15.5 % Platelet Count 53 L 130-400 K/uL Mean Platelet Volume 13.8 H 7.5-10.5 fL Nucleated Red Blood Cells 0.0 0.0-0.19 % Immature Granulocyte % (Auto) 0.8 0-1 % Neutrophils (%) (Auto) 77.6 H 40.0-77.0 % Lymphocytes (%) (Auto) 11.3 L 21.0-51.0 % Monocytes (%) (Auto) 8.4 3.0-13.0 % Eosinophils (%) (Auto) 1.6 0.0-8.0 % Basophils (%) (Auto) 0.3 0.0-5.0 % Neutrophils # (Auto) 4.8 1.8-7.7 K/uL Lymphocytes # (Auto) 0.7 L 1.0-4.8 K/uL Monocytes # (Auto) 0.5 0.1-1.0 K/uL Eosinophils # (Auto) 0.10 0.00-0.70 K/uL Basophils # (Auto) 0.02 0.00-0.20 K/uL Absolute Immature Granulocyte (auto 0.05 0-1 K/uL Chemistry Labs: Test 05/14/25 23:50 05/14/25 20:48 05/14/25 20:30 05/14/25 16:07 Range/Units Sodium Level 141 136-145 mmol/L Potassium Level 3.4 L 3.5-5.1 mmol/L Chloride Level 112 H 101-111 mmol/L Carbon Dioxide Level 17 L 21-32 mmol/L Blood Urea Nitrogen 53 H 7-18 mg/dL Creatinine 2.3 H 0.5-1.3 mg/dL Glomerular Filtration Rate Calc 31 >90 mL/min Random Glucose 132 H 70-105 mg/dL Total Calcium 7.6 L 8.5-10.1 mg/dL Total Bilirubin 0.8 # 0.2-1.0 mg/dL Aspartate Amino Transf (AST/SGOT) 73 H 10-37 U/L Alanine Aminotransferase (ALT/SGPT) 48 # 12-78 U/L Alkaline Phosphatase 263 #H 50-136 U/L B-Type Natriuretic Peptide 392 H 0-100 pg/mL Total Protein 5.6 L 6.0-8.3 g/dL Albumin 2.3 L 3.5-5.0 g/dL Ammonia 246 *H 11-32 umol/L Whole Blood Glucose 131 H 70-110 MG/DL Magnesium Level 1.90 1.80-2.40 mg/dL Test 05/14/25 03:16 Range/Units Phosphorus Level 4.2 2.5-4.9 mg/dL Direct Bilirubin 0.3 0.0-0.3 mg/dL Lipase 96 H 16-77 U/L Coagulation Labs: Test 05/14/25 09:05 Range/Units Prothrombin Time 11.6 9.6-11.6 SEC Prothromb Time International Ratio 1.11 0.85-1.15 Activated Partial Thromboplast Time 38.2 H 26.3-35.5 SEC DIAGNOSTICS / RADIOLOGY RESULTS: [ ] PLAN Patient was transferred to ICU s/p respiratory failure and obtunded by the [facility] team with continuous cardiac and telemetry monitoring. Patient was intubated per request of at bedside and family on phone. Titrate ventilator to keep SpO2 equal to greater than 92% and according to ABGs. Monitor respiratory status closely. Albuterol and Atrovent scheduled. Solu-Medrol 125 MG IV now then Solu-Medrol 40 mg IV b.i.d.. Antibiotic therapy: Zosyn IV Start propofol and fentanyl drip as needed to keep RASS -2. Aspiration precautions. Pulmonary toileting. Place OG, PICC line, rectal tube. Continue monitoring ammonia levels q.4 hours. Continue lactulose. V/S per ICU. Monitor renal and liver function. Monitor electrolytes and treat accordingly PRN AM labs. GI and DVT prophylaxis Further plan/orders per hospitalization course. NEURO: Minimize central acting medications as possible. Fall Precautions. Well lighted room through the day and minimize interruptions through the night to prevent acute delirium. PULMONARY: Supplemental 02 as needed Titrate Fio2 to keep Spo2 > or = 90% DuoNebs and CPT as needed IS hourly while awake for pulmonary hygiene Out of bed to chair as tolerated VAP Bundle CARDIOVASCULAR: Follow hemodynamics. Titrate vasopressor to keep MAP >65 or systolic blood pressure >95mmHg GI & NUTRITION: Continue nutritional support Aspirations precautions Prokinetic agents and laxatives as needed KIDNEYS & ELECTROLYTES: Strict monitoring of intake and output Daily weights Avoid nephrotoxic agents Monitor electrolytes and replace as needed Goal urine output of 30mL/hr or 0.5mL/kg/hr ENDOCRINE: Maintain blood glucose between 100-180 at all times. Insulin sliding scale for blood glucose management INFECTIOUS DISEASE: Trend temperature. Snow-culture if febrile. HEMATOLOGY & COAGULATION: Monitor H&H. Keep Hgb > 7 Transfuse 1 unit of PRBC for Hgb < 7 Transfuse 1 pack of platelets of platelets < 20, 000 Watch for any signs and symptoms of bleeding SKIN: Pressure ulcer prevention per facility protocol Rehab: PT/OT Code Status: Full Resuscitation Disposition: [Admit to ICU] Due to a high probability for clinically significant, life-threatening deterioration, the patient required my highest level of preparedness to intervene emergently, and I personally spent 60 minutes of critical care time directly and personally managing the patient. I devoted my full attention to the patient during this time, which is separate from time spent on any billable procedures. This includes time spent involved in work directly related to the care of the patient: such as review of prior records, development of treatment plan with as well as nursing, discussions with consultants, evaluation of patient's response to treatment, examination of patient, obtaining history from , ordering and performing treatments and interventions, ordering and review of laboratory studies, ordering and review of radiographic studies, pulse oximetry and re-evaluation of patient's condition, discussions with the family members and the patient, and any required documentation. This critical care time was performed to assess and manage the high probability of imminent life- threatening deterioration that could result in multi-organ failure. [facility] May 15, 2025 03:14
[2025-05-15 04:15] LABS: NUCLEATED RED BLOOD CELLS 0.0 % (0.0-0.19); PLATELET COUNT (AUTO) 52 K/uL (130-400); RED BLOOD CELL COUNT(AUTO) 2.11 MIL/uL (4.50-6.20); RED CELL DISTRIBUTION WIDTH 15.6 % (11.0-15.5); WHITE BLOOD COUNT (AUTO) 3.1 K/uL (4.8-10.8)
[2025-05-15 04:25] LABS: ASPARTATE AMINOTRANSFERASE 57.0 U/L (10-37); CREATININE 2.4 mg/dL (0.5-1.3); GLOMERULAR FILTR. RATE CALC 29.0 mL/min (>90); GLUCOSE,RANDOM 127.0 mg/dL (70-105); SODIUM SERUM 142.0 mmol/L (136-145); TOTAL PROTEIN, SERUM 4.5 g/dL (6.0-8.3); UREA NITROGEN, BLOOD 55.0 mg/dL (7-18)
[2025-05-15] MEDS ORDERED: 0.9%NACL 50ML IV SCH (05:40)
[2025-05-15] MEDS: ZOSYN 3.375GM +NS 50ML IVPB SCH (05:47)
[2025-05-15] MEDS: ALBUTEROL 0.083% 2.5 MG/3 ML INH IH SCH (06:34)
[2025-05-15 07:20] LABS: ABG BASE EXCESS -7.2 mmol/L (-2.0-3.0); ABG HCO3 15.0 mmol/L (21.0-28.0); ABG OXYGEN SATURATION 99.1 % (94.0-98.0); ABG PCO2 20 mmHg (35-48); ABG PH 7.484 (7.350-7.450); CARBON MONOXIDE 0.3 % (0.5-1.5); DEVICE COMMENT RR SHERRI; TEMPERATURE, CELSIUS BG 37.0 CELSIUS (35.5-37.0); VENT MODE, BG AC (ROOM AIR)
[2025-05-15 07:35] LABS: PO2, ARTERIAL BG 339.1 mmHg (83.0-108.0)
--- NOTE | 2025-05-15 09:51 | PN ---
[facility] PROGRESS NOTE Date Patient Seen: May 15, 2025 Time of Visit: 09:51 Supervising Physician: ARIS WING MD Primary Care Physician: Attending team: [facility] hospitalist team Outpatient Specialists: Inpatient Consults: BIS, critical Care team GI, Nephro PROBLEM LIST: Hepatic/metabolic encephalopathy, POA Requring intubation for airway protection on 05/14/25 Compensated Non Agap metabolic acidosis POA Suspected HRS Mild left lung volume loss with mild atelectasis and infiltrates in the left lung, per x-ray on 05/15/25 Aspiration pneumonia Acute on chronic anemia POA Thrombocytopenia Cirrhosis of the liver severe hyperammonemia Hypoalbuminemia Electrolyte derangement(hypokalemia, hyperchloremia, hypocalcemia) Severe anemia with + stool occult requiring blood transfusions s/p normal EGD on 05/12/25 Psoriasis Acute kidney injury Pancytopenia INTERVAL HISTORY: Pt intubated overnight. There was a report from RN that may be considering withdrawal but after conversation with primary team she has decided to continue with full support. He remains a full coed for now. vent settings adjusted per ABG. He has been weaned off precedex gtt. we will continues Daily sedation vacation in preparation for vent weaning. CBC similar to yesterday. Ammonia level has i mproved. from 132 to 58. HH stable. His x-ray shows right PICC line tip overlies the proximal SVC, ET tube 3.1 above the natalie. Mild pleural effusion of the right side. OG tube overlying the middle stomach. No pneumothorax. REVIEW OF SYSTEMS: Unable to obtain patient is obtunded, does not wake up to painful stimuli. PHYSICAL EXAM: GENERAL: intubated and sedated HEENT: Sclera non icteric, moist mucosa NECK: Supple, no JVD, trachea midline LUNGS: Diminished breath sounds bilaterally. No wheezes. Tachypneic, retractions, abdominal breathing, snoring respirations. HEART: Heart rate 90s, regular rate and rhythm. Normal S1 and S2, without murmurs ABD: Abdomen soft, obese, nontender. Bowel sounds present EXT: No clubbing cyanosis or edema NEURO: intubated and sedated Vital Signs (last 8hr) Date Time Temp Pulse Resp B/P (MAP) Pulse Ox O2 Delivery O2 Flow Rate FiO2 05/15/25 09:18 62 40 05/15/25 07:20 40 05/15/25 06:38 73 21 05/15/25 06:27 70 12 119/51 100 Ventilator 60 05/15/25 06:19 70 60 05/15/25 06:12 84 17 129/62 100 Ventilator 60 05/15/25 05:57 70 13 110/60 100 Ventilator 60 05/15/25 05:42 80 16 120/59 100 Ventilator 60 05/15/25 05:40 83 16 117/41 100 Ventilator 60 05/15/25 05:12 94 19 173/81 100 Ventilator 60 05/15/25 04:58 91 18 156/84 100 Ventilator 60 05/15/25 04:42 84 29 164/103 100 Ventilator 60 05/15/25 04:27 76 14 174/85 100 Ventilator 60 05/15/25 04:12 96.4 49 14 122/54 100 Ventilator 60 05/15/25 03:59 100 Ventilator+ 60 05/15/25 03:57 51 14 120/56 100 Ventilator 60 05/15/25 03:54 74 60 05/15/25 03:42 51 14 113/56 100 Ventilator 50 05/15/25 03:27 52 14 106/51 100 Ventilator 50 05/15/25 03:12 53 14 103/55 100 Ventilator 50 05/15/25 02:57 52 14 98/53 100 Ventilator 50 05/15/25 02:42 56 14 101/53 100 Ventilator 50 05/15/25 02:27 58 14 105/48 100 Ventilator 50 05/15/25 02:12 58 14 102/49 100 Ventilator 50 05/15/25 01:57 62 14 104/45 100 Ventilator 50 LABS: Hematology Labs: Test 05/15/25 03:39 05/14/25 03:16 Range/Units White Blood Count 3.1 #L 4.8-10.8 K/uL Red Blood Count 2.11 L 4.50-6.20 MIL/uL Hemoglobin 7.1 L 14.0-18.0 g/dL Hematocrit 19.7 *L 42-54 % Mean Corpuscular Volume 93.4 79-99 fL Mean Corpuscular Hemoglobin 33.6 H 27.0-33.0 pg Mean Corpuscular Hemoglobin Concent 36.0 32.0-36.0 g/dL Red Cell Distribution Width 15.6 H 11.0-15.5 % Platelet Count 52 L 130-400 K/uL Mean Platelet Volume 7.5-10.5 fL Nucleated Red Blood Cells 0.0 0.0-0.19 % Immature Granulocyte % (Auto) 0.8 0-1 % Neutrophils (%) (Auto) 77.6 H 40.0-77.0 % Lymphocytes (%) (Auto) 11.3 L 21.0-51.0 % Monocytes (%) (Auto) 8.4 3.0-13.0 % Eosinophils (%) (Auto) 1.6 0.0-8.0 % Basophils (%) (Auto) 0.3 0.0-5.0 % Neutrophils # (Auto) 4.8 1.8-7.7 K/uL Lymphocytes # (Auto) 0.7 L 1.0-4.8 K/uL Monocytes # (Auto) 0.5 0.1-1.0 K/uL Eosinophils # (Auto) 0.10 0.00-0.70 K/uL Basophils # (Auto) 0.02 0.00-0.20 K/uL Absolute Immature Granulocyte (auto 0.05 0-1 K/uL Chemistry Labs: Test 05/15/25 03:39 05/14/25 23:50 05/14/25 20:30 05/14/25 03:16 Range/Units Sodium Level 142 136-145 mmol/L Potassium Level 3.3 L 3.5-5.1 mmol/L Chloride Level 114 H 101-111 mmol/L Carbon Dioxide Level 17 L 21-32 mmol/L Blood Urea Nitrogen 55 H 7-18 mg/dL Creatinine 2.4 H 0.5-1.3 mg/dL Glomerular Filtration Rate Calc 29 >90 mL/min Random Glucose 127 H 70-105 mg/dL Total Calcium 7.4 L 8.5-10.1 mg/dL Magnesium Level 1.90 1.80-2.40 mg/dL Total Bilirubin 0.7 0.2-1.0 mg/dL Aspartate Amino Transf (AST/SGOT) 57 H 10-37 U/L Alanine Aminotransferase (ALT/SGPT) 39 12-78 U/L Alkaline Phosphatase 203 H 50-136 U/L Ammonia 132 *H 11-32 umol/L Total Protein 4.5 L 6.0-8.3 g/dL Albumin 1.9 L 3.5-5.0 g/dL B-Type Natriuretic Peptide 392 H 0-100 pg/mL Whole Blood Glucose 131 H 70-110 MG/DL Phosphorus Level 4.2 2.5-4.9 mg/dL Direct Bilirubin 0.3 0.0-0.3 mg/dL Lipase 96 H 16-77 U/L Coagulation Labs: Test 05/14/25 09:05 Range/Units Prothrombin Time 11.6 9.6-11.6 SEC Prothromb Time International Ratio 1.11 0.85-1.15 Activated Partial Thromboplast Time 38.2 H 26.3-35.5 SEC DIAGNOSTICS / RADIOLOGY RESULTS: [[facility] [address] [place] [address] IMAGING REPORT Signed PATIENT: KEVIN REINOSO MR#: [id number] : 1960 SEX: M AGE: 65 LOCATION: [facility] ORDER 0 STATUS: ADM IN REPORT#: [id number] SERVICE 9 REASON: PICC LINE PLACEMENT ORDERING PHYSICIAN: [facility] [employer]OR PROCEDURE: CXR1VW - CHEST 1VW EXAM: CR Chest, 1 view CLINICAL HISTORY: PICC line placement. COMPARISON: Same-day chest radiograph. FINDINGS: The right PICC line tip overlies the proximal SVC. The endotracheal tube tip is 3.1 cm above the natalie. The gastric tube tip overlies the mid body of the stomach. Small pleural effusion on the right side. The remaining lung edge are clear. No pneumothorax. Stable cardiac size. No acute osseous abnormality. IMPRESSION: The right PICC line tip overlies the proximal SVC. The endotracheal tube tip is 3.1 cm above the natalie. The gastric tube tip overlies the midbody of the stomach. Small pleural effusion on the right side. Interval improvement in the left lung aeration. /[place] DICTATED BY: CARI HERRING Jr., MD DATE: 05/15/25 0337 ELECTRONICALLY SIGNED BY: CARI HERRING Jr., MD DATE: 05/15/25 0337 ] PLAN continue vent management per ABG daily sedation vacation monitor ammonia levels midodrine. Sandostatin, albumin for HRS CXR in am Continue Zosyn NEURO: Minimize central acting medications as possible. Fall Precautions. Well lighted room through the day and minimize interruptions through the night to prevent acute delirium. PULMONARY: Supplemental 02 as needed Titrate Fio2 to keep Spo2 > or = 90% DuoNebs and CPT as needed IS hourly while awake for pulmonary hygiene Out of bed to chair as tolerated VAP Bundle CARDIOVASCULAR: Follow hemodynamics. Titrate vasopressor to keep MAP >65 or systolic blood pressure >95mmHg GI & NUTRITION: Continue nutritional support Aspirations precautions Prokinetic agents and laxatives as needed KIDNEYS & ELECTROLYTES: Strict monitoring of intake and output Daily weights Avoid nephrotoxic agents Monitor electrolytes and replace as needed Goal urine output of 30mL/hr or 0.5mL/kg/hr ENDOCRINE: Maintain blood glucose between 100-180 at all times. Insulin sliding scale for blood glucose management INFECTIOUS DISEASE: Trend temperature. Snow-culture if febrile. HEMATOLOGY & COAGULATION: Monitor H&H. Keep Hgb > 7 Transfuse 1 unit of PRBC for Hgb < 7 Transfuse 1 pack of platelets of platelets < 20, 000 Watch for any signs and symptoms of bleeding SKIN: Pressure ulcer prevention per facility protocol Rehab: PT/OT Code Status: Full Resuscitation Disposition: [Admit to ICU] ULYSSES GORDON May 15, 2025 09:51
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
[2025-05-15] MEDS: LACTULOSE 20 GM/30 ML UDCUP PR ONE (10:18)
[2025-05-15 10:29] LABS: IMMATURE GRANULOCYTE ABSOLUTE 0.02 K/uL (0-1); NUCLEATED RED BLOOD CELLS 0.0 % (0.0-0.19); PLATELET COUNT (AUTO) 48 K/uL (130-400); RED BLOOD CELL COUNT(AUTO) 2.33 MIL/uL (4.50-6.20); RED CELL DISTRIBUTION WIDTH 15.9 % (11.0-15.5); WHITE BLOOD COUNT (AUTO) 4.9 K/uL (4.8-10.8)
[2025-05-15 10:35] LABS: INR 1.09 (0.85-1.15)
--- NOTE | 2025-05-15 13:20 | NUR ---
[facility] ICU Skin Assessment: Patient assessed by wound healing team. Patient with no wounds or skin breakdown noted. Assessment and recommendations provided to primary nurse. Education provided. Addendum: 05/16/25 at 1545 by JEANE NOLAND RN RN/ Amended: Links added.
[2025-05-15] MEDS: ALBUMIN (HUMAN) 25% 50 ML IV SCH (14:27)
[2025-05-15 14:54] LABS: ABG BASE EXCESS -8.5 mmol/L (-2.0-3.0); ABG HCO3 13.6 mmol/L (21.0-28.0); ABG OXYGEN SATURATION 99.6 % (94.0-98.0); ABG PCO2 22 mmHg (35-48); ABG PH 7.413 (7.350-7.450); DEVICE COMMENT RR SHERRI; PO2, ARTERIAL BG 238.4 mmHg (83.0-108.0); TEMPERATURE, CELSIUS BG 37.0 CELSIUS (35.5-37.0); VENT MODE, BG AC (ROOM AIR)
--- NOTE | 2025-05-15 15:26 | NUR ---
FAMILY UPDATE spoke to pt's family via telephone at bedside. Family updated on pt's status and multiple questions addressed by .
--- NOTE | 2025-05-15 17:42 | HMCIMG ---
EXAM: US Abdomen Limited, Right Upper Quadrant. CLINICAL HISTORY: 65y Male liver cirrhosis TECHNIQUE: Real-time ultrasound of the right upper quadrant with image documentation. Limited right upper quadrant ultrasound performed. Images were obtained in grayscale. Exam limited due to patient condition. COMPARISON: None provided. FINDINGS: LIVER: Liver measures approximately 12.1 cm. Echotexture appears coarse. No focal hepatic lesions clearly identified. Liver shows coarse echotexture???nonspecific, may correlate with hepatic parenchymal disease. GALLBLADDER: Wall thickness is 3 mm (upper limits of normal). Possible echogenic focus at the gallbladder neck concerning for stone; no definite shadowing observed. No pericholecystic fluid noted. Gallbladder wall mildly thickened; possible stone at the gallbladder neck???recommend clinical correlation. COMMON BILE DUCT: CBD measures 3 mm (within normal limits). Right hepatic duct: 3 mm Left hepatic duct: 2 mm CBD and intrahepatic ducts not dilated. PANCREAS: Partially visualized. Evaluation limited due to overlying bowel gas and patient condition. RIGHT KIDNEY: Measures 10.7 x 5.3 x 5.2 cm. Normal size and contour. No hydronephrosis identified. No masses or stones visualized. COMMENTS: Technically limited study. Patient is intubated and unable to hold breath or reposition. Portions of the pancreas and other abdominal structures could not be fully evaluated. IMPRESSION: 1. Liver with coarse echotexture, no focal hepatic lesions identified. 2. Gallbladder with wall thickness at the upper limits of normal and a possible echogenic focus at the neck concerning for stone; no definite shadowing observed. No pericholecystic fluid. 3. CBD and intrahepatic ducts not dilated. 4. Limited study due to patient condition. /[place]
[2025-05-15] MEDS ORDERED: Solu-medROL 40MG VIAL IVP SCH (18:00)
--- NOTE | 2025-05-15 19:00 | NUR ---
STATUS Precedex infusion resumed. Pt with spontaneous eye opening but does not focus or follow commands. Pt with increased work of breathing, tachypnea, biting of ETT.
--- NOTE | 2025-05-15 22:06 | CONS ---
NEPHROLOGY CONSULTATION HISTORY OF PRESENT ILLNESS: The patient now transferred to ICU for mental status changes, renal failure, electrolyte problem, and multiple other comorbidities. The patient is critically ill. This patient has paracentesis done before. The patient has hypoxia. 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 The patient has remained with multiple other comorbidities, has pancytopenias also. All the other systemic review is unchanged. REVIEW OF SYSTEMS: Not possible. The patient is intubated mechanically. PHYSICAL EXAMINATION: VITAL SIGNS: Blood pressure is 119/51, pulse 73, respiratory rate is 21. HEENT: Head is atraumatic, normocephalic. Pupils are round and reactive. Sclerae anicteric. Conjunctivae not pale. Oral mucosa is not dry. NECK: Supple. No masses or bruits. Thyroid is palpable. Neck has no bruits. CHEST: Shows equal to thoracic percussion note being resonant in all areas. CARDIAC: Regular rhythm. No rub. No S3, S4. No parasternal heave. ABDOMEN: No guarding or tenderness. Bowel sounds are hypoactive. No free fluid. EXTREMITIES: With no edema and no cyanosis. NEUROLOGIC: Unchanged. No other cranial nerve palsy. The patient is intubated and mechanically ventilated, sedated. LABORATORY DATA: Labs have shown hemoglobin went down to 7.1, white cell count is 3.1. Creatinine remains elevated. Sodium 142, BUN of 55, creatinine 2.4, low CO2. DIAGNOSTIC STUDIES: X-ray and imaging studies are personally reviewed. The patient has undergone x-ray with no acute abnormalities. Increased markings. The patient has a PICC line in place. PROBLEMS: * Acute on chronic renal failure. * Respiratory failure, mechanical ventilation. * Hepatic encephalopathy, hepatorenal suspected ____ underlying. * The patient has anemia. PLAN: The patient is on midodrine ____ Sandostatin, albumin. Intake, output, weight will be monitored. The patient has follow-up on renal function, electrolytes, overall status. Mechanical ventilation continue. Follow-up on urine output, electrolytes. We have reviewed the labs, x-rays, imaging studies personally. I discussed with other team physician. Old records have been reviewed. Follow-up labs have been ordered. Condition is critical and guarded. TID: [id number] RECEIPT: [id number]
[2025-05-16] VITALS (53 sets, daily range): BP systolic 108–161; BP diastolic 45–78; PULSE 46–89; RESP 10–19; TEMP 96.8–98.5; O2SAT 99–100
[2025-05-16 05:30] LABS: ASPARTATE AMINOTRANSFERASE 39.0 U/L (10-37); CREATININE 2.9 mg/dL (0.5-1.3); GLOMERULAR FILTR. RATE CALC 23.0 mL/min (>90); GLUCOSE,RANDOM 164.0 mg/dL (70-105); PHOSPHORUS 6.7 mg/dL (2.5-4.9); SODIUM SERUM 145.0 mmol/L (136-145); TOTAL PROTEIN, SERUM 5.3 g/dL (6.0-8.3); UREA NITROGEN, BLOOD 72.0 mg/dL (7-18)
[2025-05-16 05:31] LABS: IMMATURE GRANULOCYTE ABSOLUTE 0.02 K/uL (0-1); NUCLEATED RED BLOOD CELLS 0.0 % (0.0-0.19); PLATELET COUNT (AUTO) 46 K/uL (130-400); RED BLOOD CELL COUNT(AUTO) 2.34 MIL/uL (4.50-6.20); RED CELL DISTRIBUTION WIDTH 15.4 % (11.0-15.5); WHITE BLOOD COUNT (AUTO) 5.0 K/uL (4.8-10.8)
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
--- NOTE | 2025-05-16 09:08 | PN ---
NEPHROLOGY PROGRESS NOTE Date/Time Patient Seen: May 16, 2025 SUBJECTIVE: This is a 65-year-old male with known history of cirrhosis of the liver was brought to the emergency room by his with complaints of confusion and disorientation. She indicated that he has been taking rifaximin for the past 10 days although he was recommended for 30 days. He has been in the hospital for several days He was noted with worsening renal failure He was transferred to ICU due to worsening encephalopathy and acute respiratory failure He continues to be intubated and sedated Currently not on any vasopressors We are consulted for renal failure Renal function remains elevated Electrolytes are noted Imaging studies were noted He continues on albumin and lactulose Family at the bedside Prognosis remains guarded REVIEW OF SYSTEMS: Difficult to obtain given status of the patient who remains intubated mechanically ventilated Vital Signs (last 8hr) Date Time Temp Pulse Resp B/P (MAP) Pulse Ox O2 Delivery O2 Flow Rate FiO2 05/16/25 06:42 50 10 124/52 (76) 100 05/16/25 06:34 50 16 05/16/25 06:30 50 40 05/16/25 06:12 46 10 135/56 (82) 100 05/16/25 05:42 50 14 161/65 (97) 100 05/16/25 05:12 46 13 148/64 (92) 100 05/16/25 04:42 48 15 157/68 (97) 100 05/16/25 04:12 48 12 154/66 (95) 100 05/16/25 04:00 40 05/16/25 04:00 100 Ventilator+ 40 05/16/25 03:42 97.0 48 12 154/64 (94) 100 05/16/25 03:33 51 40 05/16/25 03:12 48 14 153/64 (93) 100 05/16/25 02:42 48 14 153/68 (96) 100 05/16/25 02:12 49 13 154/66 (95) 100 05/16/25 01:42 49 16 155/68 (97) 100 05/16/25 01:12 50 18 151/66 (94) 100 PHYSICAL EXAM: General: acutely ill, sedated, intubated, and mechanically ventilated HEENT: head is atraumatic, pupils equal and reactive, ET tube in place Neck: supple, no masses, no lymphadenopathy, no thyromegaly, no JVD Lungs: decreased breath sounds bilaterally, symmetrical chest movement Cardio: regular rate, S1 and S2 normal, no rub or gallop Abdomen: soft, non tender, no distension, no organomegaly Extremities: trace edema bilateral lower extremities, no cyanosis or clubbing Skin: no rashes or suspicious lesions Neuro: sedated Current Medications Medications (Trade) Dose Ordered Sig/Abdiel Route Start Time Stop Time Status Last Admin Dose Admin Albumin Human 50 ml @ 0 mls/hr Q6H IV 05/15/25 13:30 05/17/25 13:29 05/16/25 02:57 100 MLS/HR Albumin Human 50 ml @ 0 mls/hr Q8H5 IV 05/10/25 17:00 05/12/25 09:00 DC 05/12/25 04:47 50 MLS/HR Albuterol Sulfate (Proventil 0.083% 2.5mg/3ml) 2.5 mg [id number] IH 05/15/25 06:00 06/14/25 05:59 05/16/25 06:34 2.5 MG Amlodipine Besylate (NorvASC 2.5MG TAB) 2.5 mg DAILY PO 05/14/25 11:00 06/13/25 10:59 05/14/25 10:47 2.5 MG Dexmedetomidine/ Sodium Chloride (PRECEdex 400MCG/ 100ML-NS) 400 mcg PROTOCOL IV 05/15/25 10:00 06/14/25 09:59 05/16/25 02:56 400 MCG Famotidine (Pepcid 20mg Vial) 20 mg BID IV 05/10/25 21:00 06/09/25 20:59 UNV Fentanyl/Sodium Chloride 250 ml @ 0 mls/hr PROTOCOL IV 05/15/25 00:30 05/20/25 00:29 Folic Acid (FOLic ACID 1 MG TABLET) 1 mg DAILY PO 05/14/25 11:00 06/13/25 10:59 05/14/25 10:47 1 MG Ipratropium [place] (AtrovENT UD) 0.5 mg Q0IGGGA IH 05/15/25 06:00 06/14/25 05:59 05/16/25 06:34 0.5 MG Lactulose (Constulose 20gm/ 30ml Udcup) 20 gm BID PO 05/09/25 09:00 05/10/25 06:41 DC 05/09/25 20:51 20 GM Lactulose (Constulose 20gm/ 30ml Udcup) 20 gm TID PO 05/10/25 07:00 05/10/25 11:48 DC Lactulose (Constulose 20gm/ 30ml Udcup) 45 gm TID PO 05/10/25 14:00 05/14/25 18:15 DC 05/14/25 16:31 45 GM Lactulose (Constulose 20gm/ 30ml Udcup) 45 gm TID PO 05/14/25 21:30 06/13/25 21:29 05/15/25 20:27 45 GM Methylprednisolone Sodium Succinate (Solu-medROL 40MG) 40 mg BID IVP 05/15/25 18:00 05/15/25 09:53 DC Midodrine (PROAMatine 5 MG TABLET) 5 mg TID PO 05/15/25 14:00 06/14/25 13:59 05/15/25 14:27 5 MG Multivitamins/ Minerals 10 ml/ Folic Acid 1 mg/ Thiamine HCl 100 mg/Sodium Chloride 1,010 ml @ 50 mls/hr Q24H IV 05/11/25 14:00 05/14/25 10:11 DC 05/13/25 11:43 50 MLS/HR Octreotide Acetate 1250 mcg/ Sodium Chloride 250 ml @ 0 mls/hr PROTOCOL IV 05/11/25 13:00 05/12/25 16:05 DC 05/12/25 05:43 5 MLS/HR Octreotide Acetate (SandoSTATIN) 100 mcg TID SQ 05/15/25 14:00 06/14/25 13:59 05/15/25 20:28 100 MCG Pantoprazole Sodium (PROTonix 40MG TAB) 40 mg DAILY PO 05/09/25 09:00 05/11/25 12:35 DC 05/11/25 09:57 40 MG Pantoprazole Sodium 80 mg/ Sodium Chloride 100 ml @ 10 mls/hr Q10H IV 05/11/25 13:00 05/12/25 16:05 DC 05/12/25 08:58 10 MLS/HR Piperacillin Sod/ Tazobactam Sod (Zosyn 3.375gm+NS 50ml) 3.375 gm Q8H IVPB 05/15/25 05:35 05/25/25 05:34 05/16/25 05:51 3.375 GM Sodium Bicarbonate (Sodium Bicarbonate) 650 mg QID PO 05/11/25 09:00 05/13/25 06:26 DC 05/12/25 20:29 650 MG Sodium Bicarbonate (Sodium Bicarbonate) 1,300 mg QID PO 05/13/25 09:00 05/15/25 08:59 DC 05/14/25 16:30 1,300 MG Sodium Bicarbonate (Sodium Bicarb 50meq 50ml Vial) 50 meq ONCE IV 05/12/25 13:30 05/12/25 17:30 DC 05/12/25 13:52 50 MEQ Sodium Bicarbonate (Sodium Bicarb 50meq 50ml Vial) 50 meq ONCE IV 05/12/25 19:00 05/12/25 23:00 DC Sodium Bicarbonate (Sodium Bicarb 50meq 50ml Vial) 50 meq ONCE IV 05/12/25 23:55 05/13/25 04:00 DC Sodium Chloride 1,000 ml @ 75 mls/hr [id number] IV 05/10/25 12:00 05/11/25 12:35 DC 05/11/25 01:24 75 MLS/HR Sodium Chloride (NS 50ml) 50 ml AD IV 05/15/25 05:40 05/15/25 07:22 DC Thiamine HCl (Vitamin B-1) 100 mg DAILY IVP 05/16/25 09:00 06/15/25 08:59 Thiamine HCl (Vitamin B-1) 100 mg DAILY PO 05/11/25 09:00 05/11/25 12:40 DC 05/11/25 09:57 100 MG Thiamine HCl (Vitamin B-1) 100 mg DAILY PO 05/14/25 09:00 05/15/25 09:52 DC 05/14/25 09:24 100 MG LABORATORY: [ ] Hematology Labs: Test 05/16/25 05:04 Range/Units White Blood Count 5.0 4.8-10.8 K/uL Red Blood Count 2.34 L 4.50-6.20 MIL/uL Hemoglobin 7.6 L 14.0-18.0 g/dL Hematocrit 22.5 L 42-54 % Mean Corpuscular Volume 96.2 79-99 fL Mean Corpuscular Hemoglobin 32.5 27.0-33.0 pg Mean Corpuscular Hemoglobin Concent 33.8 32.0-36.0 g/dL Red Cell Distribution Width 15.4 11.0-15.5 % Platelet Count 46 L 130-400 K/uL Mean Platelet Volume 7.5-10.5 fL Immature Granulocyte % (Auto) 0.4 0-1 % Neutrophils (%) (Auto) 85.3 H 40.0-77.0 % Lymphocytes (%) (Auto) 10.5 L 21.0-51.0 % Monocytes (%) (Auto) 3.8 3.0-13.0 % Eosinophils (%) (Auto) 0.0 0.0-8.0 % Basophils (%) (Auto) 0.0 0.0-5.0 % Neutrophils # (Auto) 4.2 1.8-7.7 K/uL Lymphocytes # (Auto) 0.5 L 1.0-4.8 K/uL Monocytes # (Auto) 0.2 0.1-1.0 K/uL Eosinophils # (Auto) 0.00 0.00-0.70 K/uL Basophils # (Auto) 0.00 0.00-0.20 K/uL Absolute Immature Granulocyte (auto 0.02 0-1 K/uL Nucleated Red Blood Cells 0.0 0.0-0.19 % Chemistry Labs: Test 05/16/25 05:04 05/14/25 23:50 05/14/25 20:30 Range/Units Sodium Level 145 136-145 mmol/L Potassium Level 4.0 3.5-5.1 mmol/L Chloride Level 113 H 101-111 mmol/L Carbon Dioxide Level 17 L 21-32 mmol/L Blood Urea Nitrogen 72 H 7-18 mg/dL Creatinine 2.9 H 0.5-1.3 mg/dL Glomerular Filtration Rate Calc 23 >90 mL/min Random Glucose 164 H 70-105 mg/dL Total Calcium 8.0 L 8.5-10.1 mg/dL Phosphorus Level 6.7 H 2.5-4.9 mg/dL Magnesium Level 2.20 1.80-2.40 mg/dL Total Bilirubin 0.7 0.2-1.0 mg/dL Aspartate Amino Transf (AST/SGOT) 39 H 10-37 U/L Alanine Aminotransferase (ALT/SGPT) 35 12-78 U/L Alkaline Phosphatase 160 H 50-136 U/L Ammonia 64 H 11-32 umol/L Total Protein 5.3 L 6.0-8.3 g/dL Albumin 2.3 L 3.5-5.0 g/dL B-Type Natriuretic Peptide 392 H 0-100 pg/mL Whole Blood Glucose 131 H 70-110 MG/DL Coagulation Labs: Test 05/15/25 10:00 Range/Units Prothrombin Time 11.5 9.6-11.6 SEC Prothromb Time International Ratio 1.09 0.85-1.15 Activated Partial Thromboplast Time 40.3 H 26.3-35.5 SEC Fibrinogen 270 180-350 mg/dL DIAGNOSTICS / RADIOLOGY: [address] [address] IMAGING REPORT Signed PATIENT: KEVIN REINOSO MR#: [id number] : 1960 SEX: M AGE: 65 LOCATION: [facility] ORDER 0 STATUS: ADM IN REPORT#: [id number] SERVICE 9 REASON: PICC LINE PLACEMENT ORDERING PHYSICIAN: BARRINGTON TENORIO PROTECTION MANAGER PROCEDURE: CXR1VW - CHEST 1VW EXAM: CR Chest, 1 view CLINICAL HISTORY: PICC line placement. COMPARISON: Same-day chest radiograph. FINDINGS: The right PICC line tip overlies the proximal SVC. The endotracheal tube tip is 3.1 cm above the natalie. The gastric tube tip overlies the mid body of the stomach. Small pleural effusion on the right side. The remaining lung edge are clear. No pneumothorax. Stable cardiac size. No acute osseous abnormality. IMPRESSION: The right PICC line tip overlies the proximal SVC. The endotracheal tube tip is 3.1 cm above the natalie. The gastric tube tip overlies the midbody of the stomach. Small pleural effusion on the right side. Interval improvement in the left lung aeration. /[place] DICTATED BY: CARI HERRING Jr., MD DATE: 05/15/25336 ELECTRONICALLY SIGNED BY: CARI HERRING Jr., MD DATE: 05/15/25336 PATIENT: KEVIN REINOSO MR#: [id number] : 1960 SEX: M AGE: 65 LOCATION: [facility] ORDER 0001 STATUS: ADM IN REPORT#: [id number] SERVICE 2354 REASON: resp failure ORDERING PHYSICIAN: BARRINGTON TENORIO PROCEDURE: CXR1VW - CHEST 1VW EXAM: CR Chest, 1 view CLINICAL HISTORY: Respiratory failure. Endotracheal tube. COMPARISON: Chest radiograph dated 05/13/2025. FINDINGS: The endotracheal tube tip is 3.1 cm above the natalie. The gastric tube tip overlies the midbody of the stomach. Interval mild left lung volume loss with mild atelectasis and infiltrates in the left lung. Mildly blunted right CP angle, concerning small pleural effusion or pleural thickening. No pneumothorax. Stable cardiac size. No acute osseous abnormality. IMPRESSION: The endotracheal tube tip is 3.1 cm above the natalie. The gastric tube tip overlies the midbody of the stomach. Interval mild left lung volume loss with mild atelectasis and infiltrates in the left lung. Stable right CP angle blunting, concerning small pleural effusion or pleural thickening. /[place] DICTATED BY: CARI HERRING Jr., MD DATE: 05/15/25225 ELECTRONICALLY SIGNED BY: CARI HERRING Jr., MD DATE: 05/15/25225 PATIENT: KEVIN REINOSO MR#: [id number] : 1960 SEX: M AGE: 65 LOCATION: [facility] ORDER 45 STATUS: ADM IN REPORT#: [id number] SERVICE 124 REASON: liver cirrhosis ORDERING PHYSICIAN: JERMAN DAO MD PROCEDURE: ABDRUQLTD - US ABDOMINAL RUQ\LTD EXAM: US Abdomen Limited, Right Upper Quadrant. CLINICAL HISTORY: 65y Male liver cirrhosis TECHNIQUE: Real-time ultrasound of the right upper quadrant with image documentation. Limited right upper quadrant ultrasound performed. Images were obtained in grayscale. Exam limited due to patient condition. COMPARISON: None provided. FINDINGS: LIVER: Liver measures approximately 12.1 cm. Echotexture appears coarse. No focal hepatic lesions clearly identified. Liver shows coarse echotexture???nonspecific, may correlate with hepatic parenchymal disease. GALLBLADDER: Wall thickness is 3 mm (upper limits of normal). Possible echogenic focus at the gallbladder neck concerning for stone; no definite shadowing observed. No pericholecystic fluid noted. Gallbladder wall mildly thickened; possible stone at the gallbladder neck???recommend clinical correlation. COMMON BILE DUCT: CBD measures 3 mm (within normal limits). Right hepatic duct: 3 mm Left hepatic duct: 2 mm CBD and intrahepatic ducts not dilated. PANCREAS: Partially visualized. Evaluation limited due to overlying bowel gas and patient condition. RIGHT KIDNEY: Measures 10.7 x 5.3 x 5.2 cm. Normal size and contour. No hydronephrosis identified. No masses or stones visualized. COMMENTS: Technically limited study. Patient is intubated and unable to hold breath or reposition. Portions of the pancreas and other abdominal structures could not be fully evaluated. IMPRESSION: 1. Liver with coarse echotexture, no focal hepatic lesions identified. 2. Gallbladder with wall thickness at the upper limits of normal and a possible echogenic focus at the neck concerning for stone; no definite shadowing observed. No pericholecystic fluid. 3. CBD and intrahepatic ducts not dilated. 4. Limited study due to patient condition. /[place] DICTATED BY: DILLON ALEX MD DATE: 05/15/251840 ELECTRONICALLY SIGNED BY: DILLON ALEX MD DATE: 05/15/251840 PATIENT: KEVIN REINOSO MR#: [id number] : 1960 SEX: M AGE: 65 [facility] ORDER 230 STATUS: ADM IN REPORT#: [id number] SERVICE 0800 REASON: ASCITES ORDERING PHYSICIAN: MARGARITO PRASAD CONSULTING GROUP ANALYST PROCEDURE: ABD WALL - US ABD LIMITED/ABD WALL CLINICAL HISTORY: Evaluation for ascites. COMPARISON: Prior study from 01/19/2022 is available.. TECHNIQUES: All 4 quadrant ultrasound for ascites workup. FINDINGS: All 4 quadrants sonogram demonstrate no ascites identified. IMPRESSION: No ascites identified. DICTATED BY: MARGE LING MD DATE: 05/14/25 1458 ELECTRONICALLY SIGNED BY: MARGE LING MD DATE: 05/14/25 1503 PATIENT: KEVIN REINOSO MR#: [id number] : 1960 SEX: M AGE: 65 LOCATION: [facility] ORDER 0859 STATUS: ADM IN HOSPITAL REPORT#: [id number] SERVICE 0856 REASON: N&V/Aspiration ORDERING PHYSICIAN: MARGARITO PRASAD CONSULTING GROUP ANALYST PROCEDURE: CXR1VW - CHEST 1VW EXAM: CR Chest, 1 view. CLINICAL HISTORY: Aspiration. COMPARISON: Prior chest radiograph dated 05/09/25. FINDINGS: Small stable right pleural effusion with mild right basilar atelectasis. The remaining bilateral lung edge are clear with no acute infiltrates. No pneumothorax. Stable cardiac size. No acute osseous abnormality. Impression: Small stable right pleural effusion with mild right basilar atelectasis. No other interval changes. /[place] DICTATED BY: CARI HERRING Jr., MD DATE: 05/14/25448 ELECTRONICALLY SIGNED BY: CARI HERRING Jr., MD DATE: 05/14/25448 PATIENT: KEVIN REINOSO MR#: [id number] : 1960 SEX: M AGE: 65 LOCATION: [facility] ORDER 0645 STATUS: ADM IN REPORT#: [id number] SERVICE 0644 REASON: fly ORDERING PHYSICIAN: MARGARITO PRASAD CONSULTING GROUP ANALYST PROCEDURE: RENAL - US RENAL SONOGRAM EXAMINATION: ULTRASOUND OF THE RETROPERITONEUM. CLINICAL HISTORY: FLY. COMPARISON: None provided. TECHNIQUE: Real-time grayscale and color ultrasound images of the kidneys. FINDINGS: The kidneys are normal in caliber; the right kidney measures 10.0 x 4.9 x 4.8 cm in its craniocaudal, AP, and transverse dimensions, and the left kidney measures 9.7 x 5.1 x 4.0 cm in its craniocaudal, AP, and transverse dimensions. There is normal renal cortical thickness and increased cortical echogenicity. There is no renal calculus. There is no hydronephrosis. The urinary bladder is normal in caliber and wall thickness (0.4 cm). There are no calculi in the urinary bladder. Incidentally noted, dilated splenic vein that measures 2.1 cm. IMPRESSION: Increased cortical echogenicity, may reflect renal parenchymal disease. Recommend clinical correlation and laboratory parameters. Dilated splenic vein may reflect aneurysm. Recommend contrast enhanced CT abdomen and pelvis. /[place] DICTATED BY: CARI HERRING Jr., MD DATE: 05/10/251515 ELECTRONICALLY SIGNED BY: CARI HERRING Jr., MD DATE: 05/10/251515 PATIENT: KEVIN REINOSO MR#: [id number] : 1960 SEX: M AGE: 65 LOCATION: [facility] ORDER 1234 STATUS: ADM IN REPORT#: [id number] SERVICE 1233 REASON: congestion pna ORDERING PHYSICIAN: MARGARITO PRASAD CONSULTING GROUP ANALYST PROCEDURE: CXR1VW - CHEST 1VW EXAM: CR Chest, 1 View. CLINICAL HISTORY: congestion pna COMPARISON: X-ray chest 03/26/2025 FINDINGS: LUNGS: There is no mass, infiltrate, or acute pulmonary abnormality. PLEURAL SPACES: No evidence of pleural effusion or pneumothorax. MEDIASTINUM: The cardiomediastinal silhouette is within normal limits. BONES: No acute osseous abnormality. IMPRESSION: No acute cardiopulmonary pathology is evident. No significant change /[place] DICTATED BY: TRAVIS SHEIKH MD DATE: 05/09/251744 ELECTRONICALLY SIGNED BY: TRAVIS SHEIKH MD DATE: 05/09/251744 PATIENT: KEVIN REINOSO MR#: [id number] : 1960 SEX: M AGE: 65 LOCATION: [facility] ORDER 10 STATUS: ADM IN REPORT#: [id number] SERVICE 09 REASON: confusion AMS ORDERING PHYSICIAN: ASHLEY MORGAN MD PROCEDURE: HEAD WO - CT HEAD/BRAIN W/O CONTRAST EXAM: Non-contrast CT examination of the Brain CLINICAL HISTORY: Confusion. Altered mental status. TECHNIQUE: Thin collimated axial CT images of the brain were obtained, with sagittal and coronal reformatted images also submitted. CT scan done according to ALARA (As Low as Reasonably Achievable). CONTRAST USED: None. COMPARISON: Prior CT brain dated 03/26/25. FINDINGS: No acute intracranial abnormality is present. No acute cortical infarction, hemorrhage, mass, or mass effect. Small, ill-defined hypodensities in the bilateral cerebral white matter suggest mild chronic ischemic changes secondary to small vessel disease. Mild to moderate generalized cerebral atrophy, more for the given age. No hydrocephalus or abnormal extra-axial fluid collections. The posterior fossa is unremarkable. The skull base and calvarium are intact. The included portions of the paranasal sinuses and mastoid air cells are clear. IMPRESSION: No acute intracranial abnormality is present. Mild chronic ischemic changes secondary to small vessel disease. Mild to moderate generalized cerebral atrophy, more for the given age. No significant interval changes. /[place] DICTATED BY: CARI HERRING Jr., MD DATE: 05/09/25147 ELECTRONICALLY SIGNED BY: CARI HERRING Jr., MD DATE: 05/09/25147 ASSESSMENT: Acute on chronic renal failure Anemia Hepatic/metabolic encephalopathy Acute respiratory failure Metabolic acidosis Aspiration pneumonia Pancytopenia Severe hyperammonemia Electrolyte derangement Psoriasis Liver cirrhosis PLAN: Labs, diagnostic, radiologic exams reviewed and interpreted by myself and supervising physician. We have reviewed external records in detail There is no need for emergent renal replacement therapy at this time Continue with albumin and lactulose. Require close monitoring of renal function and electrolytes Order CBC, CMP,and electrolytes in am Vasopressors, as needed Continue mechanical ventilation and sedation Monitor blood pressure adjust medication doses as needed Avoid hypotensive episodes May use Dilaudid 0.5 mg IV every 6 hours as needed for severe pain Monitor blood sugars Strict intake, output, and daily weight should be monitored Please renally adjust medications Avoid nephrotoxic and nonsteroidal drugs Avoid contrast if possible Will continue to monitor renal function, anemia, electrolytes Treatment plan discussed with patient Questions were answered We have discussed with the other team physicians in detail about the care plan We will continue to monitor the patient closely Total critical care time spent with patient, nursing staff, critical care team over 35 minutes ATTESTATION BY PHYSICIAN I have seen and examined the patient. I reviewed the documentation, medical decision making, and treatment plan as noted by the mid-level provider above. I agree with the findings and plan of care. JENNY SAENZ MD, [facility] May 16, 2025 09:07
[2025-05-16] MEDS: THIAMINE HCL 100 MG/ML 2ML VIAL IVP SCH (09:15)
--- NOTE | 2025-05-16 09:59 | NUR ---
SS visit Sw spoke to Daniela, charge nurse, regarding need for clarification on directives or MPOA. Sw met with pt's Lauren. states she and pt have lived together 30yrs. They have no kids together but raised her children from a previous relationship. Pt has no Adv Directives or MPOA. states she would be decision maker when needed. Educated on need for MPOA and directives and that we can assist with completing once pt is appropriate. voiced understanding in need for clarification. Sw to follow and assist as needed Nurse Worrell informed
--- NOTE | 2025-05-16 10:17 | PN ---
[facility] PROGRESS NOTE Date Patient Seen: May 16, 2025 Time of Visit: 10:16 Supervising Physician: Richard Chance MD Primary Care Physician: Attending team: [facility] hospitalist team Outpatient Specialists: Inpatient Consults: BIS, critical Care team GI, Nephro PROBLEM LIST: Hepatic/metabolic encephalopathy, POA resolving back to baseline Requring intubation for airway protection on 05/14/25, extubated 05/16/25 Compensated Non Agap metabolic acidosis secondary to CKD, POA Suspected HRS Mild left lung volume loss with mild atelectasis and infiltrates in the left lung, per x-ray on 05/15/25 Aspiration pneumonia Acute on chronic anemia POA Thrombocytopenia Alcoholic Liver Cirrhosis MELD Score 18 (6% risk -3 month mortality) severe hyperammonemia, resolving Hypoalbuminemia Electrolyte derangement(hypokalemia, hyperchloremia, hypocalcemia) Severe anemia with + stool occult requiring blood transfusions s/p normal EGD on 05/12/25 Psoriasis Acute kidney injury Pancytopenia INTERVAL HISTORY: Patient is doing well on CPAP 02/19. He is awake alert following simple commands. 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 He has NIF -28. plans to extubate today. As per patient's he has been in the hospital multiple times for encephalopathy. Added rifaximin to lactulose regimen. we will keep pt in the ICU overnight and continue to keep monitoring ammonia levels. He he is hemodynamically stable on no pressors. Patient has remained afebrile with a T-max of 98.4 and a T low of 96.8 . Saturating 100%. Patient with minimal urine output of 295 mL balance of positive 295 mL.will order for daily weights. CBC similar to yesterday with a H&H stable 7.6/22.5 platelet count of 46 K. chemistry similar to yesterday potassium is 4.0 chloride of 113 carbon dioxide 17 BUN of 72 creatinine of 2.9 and GFR of 23. Glucose 164 mg/dL. Total calcium of 8.0 phosphorus 6.7 AST is 39 trending down ammonia level 64 similar to yesterday. Albumin of 2.3. Per RN pt's had refused earlier CXR. informed her of the importance to eval CXR prior to extubation and she agreed to have it done. REVIEW OF SYSTEMS: Unable to obtain pt is intubated PHYSICAL EXAM: GENERAL: Awake alert following commands. HEENT: Sclera non icteric, moist mucosa NECK: Supple, no JVD, trachea midline LUNGS: Diminished breath sounds bilaterally. No wheezes. Tachypneic, retractions, abdominal breathing, snoring respirations. HEART: Heart rate 90s, regular rate and rhythm. Normal S1 and S2, without murmurs ABD: Abdomen soft, obese, nontender. Bowel sounds present EXT: No clubbing cyanosis or edema NEURO: No focal weakness. Awake alert following commands. GBW Vital Signs (last 8hr) Date Time Temp Pulse Resp B/P (MAP) Pulse Ox O2 Delivery O2 Flow Rate FiO2 05/16/25 10:11 57 40 05/16/25 09:11 40 05/16/25 08:00 97.0 05/16/25 06:42 50 10 124/52 (76) 100 05/16/25 06:34 50 16 05/16/25 06:30 50 40 05/16/25 06:12 46 10 135/56 (82) 100 05/16/25 05:42 50 14 161/65 (97) 100 05/16/25 05:12 46 13 148/64 (92) 100 05/16/25 04:42 48 15 157/68 (97) 100 05/16/25 04:12 48 12 154/66 (95) 100 05/16/25 04:00 40 05/16/25 04:00 100 Ventilator+ 40 05/16/25 03:42 97.0 48 12 154/64 (94) 100 05/16/25 03:33 51 40 05/16/25 03:12 48 14 153/64 (93) 100 05/16/25 02:42 48 14 153/68 (96) 100 LABS: Hematology Labs: Test 05/16/25 05:04 Range/Units White Blood Count 5.0 4.8-10.8 K/uL Red Blood Count 2.34 L 4.50-6.20 MIL/uL Hemoglobin 7.6 L 14.0-18.0 g/dL Hematocrit 22.5 L 42-54 % Mean Corpuscular Volume 96.2 79-99 fL Mean Corpuscular Hemoglobin 32.5 27.0-33.0 pg Mean Corpuscular Hemoglobin Concent 33.8 32.0-36.0 g/dL Red Cell Distribution Width 15.4 11.0-15.5 % Platelet Count 46 L 130-400 K/uL Mean Platelet Volume 7.5-10.5 fL Immature Granulocyte % (Auto) 0.4 0-1 % Neutrophils (%) (Auto) 85.3 H 40.0-77.0 % Lymphocytes (%) (Auto) 10.5 L 21.0-51.0 % Monocytes (%) (Auto) 3.8 3.0-13.0 % Eosinophils (%) (Auto) 0.0 0.0-8.0 % Basophils (%) (Auto) 0.0 0.0-5.0 % Neutrophils # (Auto) 4.2 1.8-7.7 K/uL Lymphocytes # (Auto) 0.5 L 1.0-4.8 K/uL Monocytes # (Auto) 0.2 0.1-1.0 K/uL Eosinophils # (Auto) 0.00 0.00-0.70 K/uL Basophils # (Auto) 0.00 0.00-0.20 K/uL Absolute Immature Granulocyte (auto 0.02 0-1 K/uL Nucleated Red Blood Cells 0.0 0.0-0.19 % Chemistry Labs: Test 05/16/25 05:04 05/14/25 23:50 05/14/25 20:30 Range/Units Sodium Level 145 136-145 mmol/L Potassium Level 4.0 3.5-5.1 mmol/L Chloride Level 113 H 101-111 mmol/L Carbon Dioxide Level 17 L 21-32 mmol/L Blood Urea Nitrogen 72 H 7-18 mg/dL Creatinine 2.9 H 0.5-1.3 mg/dL Glomerular Filtration Rate Calc 23 >90 mL/min Random Glucose 164 H 70-105 mg/dL Total Calcium 8.0 L 8.5-10.1 mg/dL Phosphorus Level 6.7 H 2.5-4.9 mg/dL Magnesium Level 2.20 1.80-2.40 mg/dL Total Bilirubin 0.7 0.2-1.0 mg/dL Aspartate Amino Transf (AST/SGOT) 39 H 10-37 U/L Alanine Aminotransferase (ALT/SGPT) 35 12-78 U/L Alkaline Phosphatase 160 H 50-136 U/L Ammonia 64 H 11-32 umol/L Total Protein 5.3 L 6.0-8.3 g/dL Albumin 2.3 L 3.5-5.0 g/dL B-Type Natriuretic Peptide 392 H 0-100 pg/mL Whole Blood Glucose 131 H 70-110 MG/DL Coagulation Labs: Test 05/15/25 10:00 Range/Units Prothrombin Time 11.5 9.6-11.6 SEC Prothromb Time International Ratio 1.09 0.85-1.15 Activated Partial Thromboplast Time 40.3 H 26.3-35.5 SEC Fibrinogen 270 180-350 mg/dL DIAGNOSTICS / RADIOLOGY RESULTS: [ ] PLAN daily sedation vacation CPAP 02/19- tolerating plans for extubation for later today. continue to monitor ammonia levels Rifaximin 550mg po bid midodrine. Sandostatin, albumin for HRS continue IV abx Zosyn NEURO: Minimize central acting medications as possible. Fall Precautions. Well lighted room through the day and minimize interruptions through the night to prevent acute delirium. PULMONARY: Supplemental 02 as needed Titrate Fio2 to keep Spo2 > or = 90% DuoNebs and CPT as needed IS hourly while awake for pulmonary hygiene Out of bed to chair as tolerated VAP Bundle CARDIOVASCULAR: Follow hemodynamics. Titrate vasopressor to keep MAP >65 or systolic blood pressure >95mmHg GI & NUTRITION: Continue nutritional support Aspirations precautions Prokinetic agents and laxatives as needed KIDNEYS & ELECTROLYTES: Strict monitoring of intake and output Daily weights Avoid nephrotoxic agents Monitor electrolytes and replace as needed Goal urine output of 30mL/hr or 0.5mL/kg/hr ENDOCRINE: Maintain blood glucose between 100-180 at all times. Insulin sliding scale for blood glucose management INFECTIOUS DISEASE: Trend temperature. Snow-culture if febrile. HEMATOLOGY & COAGULATION: Monitor H&H. Keep Hgb > 7 Transfuse 1 unit of PRBC for Hgb < 7 Transfuse 1 pack of platelets of platelets < 20, 000 Watch for any signs and symptoms of bleeding SKIN: Pressure ulcer prevention per facility protocol Rehab: PT/OT Code Status: Full Resuscitation Disposition: [Admit to ICU] ATTESTATION BY PHYSICIAN The patient has been seen and evaluated, the case has been discussed with the REWARDS CONSULTANT, I agree with the clinical findings and plan of care. Richard Chance MD, NELLY [facility] May 16, 2025 10:17
--- NOTE | 2025-05-16 10:34 | NUR ---
Clarified with Desmond Bradshaw ROUTER OPERATOR order for amlodipine and midodrine. ROUTER OPERATOR orderred to DC amlodipine and continue giving midodrine for hepatorenal syndrome until further orders.
[2025-05-16 11:16] LABS: ABG BASE EXCESS -11.0 mmol/L (-2.0-3.0); ABG HCO3 13.1 mmol/L (21.0-28.0); ABG OXYGEN SATURATION 99.0 % (94.0-98.0); ABG PCO2 24 mmHg (35-48); ABG PH 7.358 (7.350-7.450); CARBON MONOXIDE 0 % (0.5-1.5); DEVICE COMMENT LR; PO2, ARTERIAL BG 248.2 mmHg (83.0-108.0); TEMPERATURE, CELSIUS BG 37.0 CELSIUS (35.5-37.0); VENT MODE, BG PS 5 (ROOM AIR)
--- NOTE | 2025-05-16 11:25 | NUR ---
Patient extubated as per MAJOR GIFTS DIRECTOR order by RT at bedside. Patient on cool aerosol mask at 40% (10L).
--- NOTE | 2025-05-16 12:30 | NUR ---
SPEECH NOTE: Orders to evaluate patient at bedside received. As per nurse Worrell, patient extubated today. RESISTANCE BRAZER will follow up 24 hours post extubation. All questions answered. Addendum: 05/16/[address] [facility] Amended: Links added.
[2025-05-16] MEDS: ALBUMIN HUMAN 25% 100 ML IV SCH (13:39)
[2025-05-16] MEDS: SODIUM BICARBONATE 650 MG TAB PO SCH (13:39)
--- NOTE | 2025-05-16 14:23 | CONS ---
GASTROENTEROLOGY CONSULTATION NOTE Date of Consultation: May 16, 2025 Time of Consultation: 14:23 History of Present Illness: [ LE: for 05/14/25: This is a 65 yo male patient with past medical history of alcoholic cirrhosis of the liver who was brought in by spouse with complaints fo altered mental status x 1 day. Per ER and H&P report, altered mental status is constant. Patient's reported patient having these episodes multiple times in the past 3 months. On admission, patient's WBCs 3.4, hemoglobin 7.6, hematocrit 23.0, platelets 66, creatinine 2.5, BUN 62, alkaline phosphatase 232, ammonia 79, urinalysis unremarkable, toxicology unremarkable. We were consulted for concern for anemia. Patient underwent EGD on 05/12/25 and was found to have: normal esophageal exam with no varices, moderate portal hypertensive gastropathy found in entire stomach with friable mucosal tissue with some mild spontaneous diffuse hemorrhage. No gastric varices. The examined duodenum was normal. Patient was seen at bedside awake but disoriented on 05/14/25. Results of EGD given to patient's spouse. Will continue to follow. Spouse V/U LE: for 05/15/25:Ammonia level 246 yesterday and 142 today. Patient with RDS yesterday now on ventilatory support. Spouse at bedside. She reported patient continued with confusion. Will continue to follow. 04/3025: Patient extubated. Awake and alert and conversational. He denies having any abdominal pain, N/V or bloody stools. Respirations are unlabored. O2 at [address] via [address]. BBS clear. Abdomen is soft and mildly distended and nontender. Active BS present. Kelly cath with clear yellow urine. HGB holding at 7.6. LFTs trending down. Will continue to follow. Patient and spouse agreed. ] Review of Systems: CONSTITUTIONAL: No malaise or change in sensation of wellbeing. ENMT: No rhinorrhea, otorrhea, sinus pain, ear ache. CARDIOVASCULAR: No angina, palpitations, orthopnea or paroxysmal dyspnea. RESPIRATORY: No SOB. GASTROINTESTINAL: No abdominal pain, nausea, vomiting, diarrhea, hematemesis, melena or change in the patient's habitual bowel movements consistency/number. GENITOURINARY: No dysuria, hematuria or change in bladder continence. MUSCULOSKELETAL: No new muscle pain or decrease in muscular strength. No new joint swelling, redness or tenderness. SKIN: No new rash. Past Medical History: [LIver Cirrhosis ] Past Surgical History: [EGD 05/12/25 ] Past Social History: [ ] Family History: [ ] Coded Allergies: No Known Allergies (Verified Allergy, Unknown, 12/26/20) Physical Exam: GEN: Awake, alert, oriented in person, time and place, and in no acute distress. HEENT: No rhinorrhea. Oral pharyngeal mucosa is pink, moist and within normal limits. O2 at 2L via NC. CHEST: Inspection, palpation and percussion of the chest were unremarkable. Lung auscultation revealed normal breath sounds bilaterally. CARDIAC:Heart sounds are regular. ABD: Soft, non-tender and midly distended. Normal bowel sounds. Kelly cath with clear yellow urine. EXT: No cyanosis or clubbing. No edema. SKIN: Intact. No rashes. JOINTS: No evidence of synovitis or acute arthritis. NEURO: Alert and oriented to name, place and person. Normal speech. Vital Sign (Last 24 Hours) 05/16/25 05/16/25 11:25 11:45 Temp 96.8 Pulse 65 Resp 15 B/P (MAP) 113/45 Pulse Ox 100 O2 Delivery Aerosol Face Mask O2 Flow Rate 10.0 FiO2 40 Intake & Output (last 24hrs) 05/15/25 05/15/25 05/16/25 15:00 23:00 07:00 Intake Total 120 ml 222.0 ml 194.9 ml Output Total 225 ml Balance 120 ml -3.0 ml 194.9 ml Laboratory: [ ] Laboratory: Test 05/16/25 11:56 05/16/25 11:15 05/16/25 05:04 05/15/25 14:52 Range/Units Whole Blood Glucose 157 H 70-110 MG/DL Blood Gas Specimen Type Arterial Arterial Blood pH 7.358 7.350-7.450 Arterial Blood Partial Pressure CO2 24 L 35-48 mmHg Arterial Blood Partial Pressure O2 248.2 H 83.0-108.0 mmHg Arterial Blood HCO3 13.1 L 21.0-28.0 mmol/L Arterial Blood Oxygen Saturation 99.0 H 94.0-98.0 % Arterial Blood Base Excess -11.0 L -2.0-3.0 mmol/L Hemoglobin (Blood Gas) 8.2 L 13.5-17.5 g/dL Sodium (Blood Gas) 142 136-145 MMOL/L Bedside Potassium (Blood Gas) 3.9 3.4-4.5 MMOL/L Bedside Chloride (Blood Gas) 117 H 98-107 MMOL/L Bedside Glucose (Blood Gas) 161 H 65-95 MG/DL Bedside Ionized Calcium (Blood Gas) 1.24 1.15-1.33 MMOL/L Bedside Lactic Acid (Blood Gas) 2.87 H 0.36-0.75 MMOL/L Blood Gas Temperature 37.0 35.5-37.0 CELSIUS Blood Gas Vent Mode PS 5 ROOM AIR FiO2 40.0 % Blood Gas PEEP 5 cm H2O Blood Gas Specimen Comment LR White Blood Count 5.0 4.8-10.8 K/uL Red Blood Count 2.34 L 4.50-6.20 MIL/uL Hemoglobin 7.6 L 14.0-18.0 g/dL Hematocrit 22.5 L 42-54 % Mean Corpuscular Volume 96.2 79-99 fL Mean Corpuscular Hemoglobin 32.5 27.0-33.0 pg Mean Corpuscular Hemoglobin Concent 33.8 32.0-36.0 g/dL Red Cell Distribution Width 15.4 11.0-15.5 % Platelet Count 46 L 130-400 K/uL Mean Platelet Volume 7.5-10.5 fL Immature Granulocyte % (Auto) 0.4 0-1 % Neutrophils (%) (Auto) 85.3 H 40.0-77.0 % Lymphocytes (%) (Auto) 10.5 L 21.0-51.0 % Monocytes (%) (Auto) 3.8 3.0-13.0 % Eosinophils (%) (Auto) 0.0 0.0-8.0 % Basophils (%) (Auto) 0.0 0.0-5.0 % Neutrophils # (Auto) 4.2 1.8-7.7 K/uL Lymphocytes # (Auto) 0.5 L 1.0-4.8 K/uL Monocytes # (Auto) 0.2 0.1-1.0 K/uL Eosinophils # (Auto) 0.00 0.00-0.70 K/uL Basophils # (Auto) 0.00 0.00-0.20 K/uL Absolute Immature Granulocyte (auto 0.02 0-1 K/uL Nucleated Red Blood Cells 0.0 0.0-0.19 % Sodium Level 145 136-145 mmol/L Potassium Level 4.0 3.5-5.1 mmol/L Chloride Level 113 H 101-111 mmol/L Carbon Dioxide Level 17 L 21-32 mmol/L Blood Urea Nitrogen 72 H 7-18 mg/dL Creatinine 2.9 H 0.5-1.3 mg/dL Glomerular Filtration Rate Calc 23 >90 mL/min Random Glucose 164 H 70-105 mg/dL Total Calcium 8.0 L 8.5-10.1 mg/dL Phosphorus Level 6.7 H 2.5-4.9 mg/dL Magnesium Level 2.20 1.80-2.40 mg/dL Total Bilirubin 0.7 0.2-1.0 mg/dL Aspartate Amino Transf (AST/SGOT) 39 H 10-37 U/L Alanine Aminotransferase (ALT/SGPT) 35 12-78 U/L Alkaline Phosphatase 160 H 50-136 U/L Ammonia 64 H 11-32 umol/L Total Protein 5.3 L 6.0-8.3 g/dL Albumin 2.3 L 3.5-5.0 g/dL Blood Gas Respiration Rate 14.0 min. Blood Gas Tidal Volume 450 ml Test 05/15/25 10:00 05/14/25 23:50 05/14/25 20:56 Range/Units Prothrombin Time 11.5 9.6-11.6 SEC Prothromb Time International Ratio 1.09 0.85-1.15 Activated Partial Thromboplast Time 40.3 H 26.3-35.5 SEC Fibrinogen 270 180-350 mg/dL B-Type Natriuretic Peptide 392 H 0-100 pg/mL Blood Gas Flow-by 1.00 0.00-15.00 L/min Current Medications Medications (Trade) Dose Ordered Sig/Abdiel Route PRN Reason Start Time Stop Time Status Last Admin Dose Admin Acetaminophen (TYLenol 325MG TAB) 650 mg Q4H PRN PO MILD PAIN (1-3) 05/09/25 01:30 06/08/25 01:29 05/11/25 14:01 650 MG Acetaminophen (TYLenol 325MG TAB) 650 mg Q4H PRN PO MILD PAIN (1-3) 05/10/25 12:00 05/11/25 06:42 DC Acetaminophen (TYLenol 325MG TAB) 650 mg Q6H PRN PO TEMPERATURE GREATER THAN 101.5 05/10/25 12:00 06/09/25 11:59 Al Hydroxide/Mg Hydroxide (MAALox PLUS 30ML) 30 ml Q6H PRN PO INDIGESTION 05/10/25 12:00 06/09/25 11:59 Albumin Human 50 ml @ 0 mls/hr Q6H IV 05/15/25 13:30 05/16/25 12:59 DC 05/16/25 09:15 100 MLS/HR Albumin Human 50 ml @ 0 mls/hr Q8H5 IV 05/10/25 17:00 05/12/25 09:00 DC 05/12/25 04:47 50 MLS/HR Albumin Human 100 ml @ 0 mls/hr Q6H6 IV 05/16/25 13:00 05/17/25 11:59 05/16/25 13:39 100 MLS/HR Albuterol Sulfate (Proventil 0.083% 2.5mg/3ml) 2.5 mg [id number] IH 05/15/25 06:00 06/14/25 05:59 05/16/25 11:40 2.5 MG Amlodipine Besylate (NorvASC 2.5MG TAB) 2.5 mg DAILY PO 05/14/25 11:00 05/16/25 10:02 DC 05/14/25 10:47 2.5 MG Dexmedetomidine/ Sodium Chloride (PRECEdex 400MCG/ 100ML-NS) 400 mcg PROTOCOL IV 05/15/25 10:00 05/16/25 10:13 DC 05/16/25 02:56 400 MCG Diphenhydramine HCl (BENAdryl CAP) 25 mg Q4H PRN PO MILD ITCHING/RASH 05/10/25 12:00 06/09/25 11:59 Diphenhydramine HCl (BENAdryl INJ) 25 mg Q6H PRN IV SEVERE ITCHING/RASH 05/10/25 12:00 06/09/25 11:59 05/10/25 13:30 25 MG Famotidine (Pepcid 20mg Vial) 20 mg BID IV 05/10/25 21:00 06/09/25 20:59 UNV Famotidine (Pepcid 20mg Vial) 20 mg BID PRN IV NAUSEA/VOMITING 05/10/25 12:00 06/09/25 11:59 UNV Fentanyl/Sodium Chloride 250 ml @ 0 mls/hr PROTOCOL IV 05/15/25 00:30 05/20/25 00:29 Folic Acid (FOLic ACID 1 MG TABLET) 1 mg DAILY PO 05/14/25 11:00 06/13/25 10:59 05/16/25 09:15 1 MG Guaifenesin/ Dextromethorphan (RobiTUSSin DM 200/20MG 10ML) 10 ml Q4H PRN PO COUGH 05/10/25 12:00 06/09/25 11:59 Hydralazine HCl (APRESOLine 20MG INJ) 5 mg Q6H PRN IV ADMINISTER FOR SBP > 160 05/11/25 12:30 06/10/25 12:29 05/15/25 00:09 5 MG Hydralazine HCl (APRESOLine 20MG INJ) 10 mg Q6H PRN IV For:SBP above 160;DBP above 90 05/09/25 01:30 05/11/25 12:31 DC Hydralazine HCl (APRESOLine 20MG INJ) 10 mg Q6H PRN IV For:SBP above 160;DBP above 90 05/10/25 12:00 06/09/25 11:59 UNV Ipratropium [place] (AtrovENT UD) 0.5 mg [id number] IH 05/15/25 06:00 06/14/25 05:59 05/16/25 11:40 0.5 MG Lactulose (Constulose 20gm/ 30ml Udcup) 20 gm BID PO 05/09/25 09:00 05/10/25 06:41 DC 05/09/25 20:51 20 GM Lactulose (Constulose 20gm/ 30ml Udcup) 20 gm BID PRN PO CONSTIPATION 05/10/25 12:00 05/11/25 12:35 DC Lactulose (Constulose 20gm/ 30ml Udcup) 20 gm TID PO 05/10/25 07:00 05/10/25 11:48 DC Lactulose (Constulose 20gm/ 30ml Udcup) 45 gm TID PO 05/10/25 14:00 05/14/25 18:15 DC 05/14/25 16:31 45 GM Lactulose (Constulose 20gm/ 30ml Udcup) 45 gm TID PO 05/14/25 21:30 06/13/25 21:29 05/16/25 13:39 45 GM Methylprednisolone Sodium Succinate (Solu-medROL 40MG) 40 mg BID IVP 05/15/25 18:00 05/15/25 09:53 DC Midodrine (PROAMatine 5 MG TABLET) 5 mg TID PO 05/15/25 14:00 06/14/25 13:59 05/16/25 13:39 5 MG Morphine Sulfate (morPHINE 2MG SYG) 2 mg Q4H PRN IVP SEVERE PAIN (7-10) 05/09/25 01:30 05/11/25 12:35 DC Multivitamins/ Minerals 10 ml/ Folic Acid 1 mg/ Thiamine HCl 100 mg/Sodium Chloride 1,010 ml @ 50 mls/hr Q24H IV 05/11/25 14:00 05/14/25 10:11 DC 05/13/25 11:43 50 MLS/HR Nitroglycerin (Nitrostat) 0.4 mg PROTOCOL PRN SL CHEST PAIN 05/10/25 12:00 06/09/25 11:59 Octreotide Acetate 1250 mcg/ Sodium Chloride 250 ml @ 0 mls/hr PROTOCOL IV 05/11/25 13:00 05/12/25 16:05 DC 05/12/25 05:43 5 MLS/HR Octreotide Acetate (SandoSTATIN) 100 mcg TID SQ 05/15/25 14:00 06/14/25 13:59 05/16/25 13:39 100 MCG Ondansetron HCl (zoFRAN 4MG INJ) 4 mg Q6H PRN IV NAUSEA/VOMITING 05/09/25 01:30 06/08/25 01:29 Ondansetron HCl (zoFRAN 4MG INJ) 4 mg Q6H PRN IV NAUSEA/VOMITING 05/10/25 12:00 06/09/25 11:59 UNV Pantoprazole Sodium (PROTonix 40MG TAB) 40 mg DAILY PO 05/09/25 09:00 05/11/25 12:35 DC 05/11/25 09:57 40 MG Pantoprazole Sodium 80 mg/ Sodium Chloride 100 ml @ 10 mls/hr Q10H IV 05/11/25 13:00 05/12/25 16:05 DC 05/12/25 08:58 10 MLS/HR Piperacillin Sod/ Tazobactam Sod (Zosyn 3.375gm+NS 50ml) 3.375 gm Q12H IVPB 05/16/25 17:35 05/25/25 05:34 Piperacillin Sod/ Tazobactam Sod (Zosyn 3.375gm+NS 50ml) 3.375 gm Q8H IVPB 05/15/25 05:35 05/16/25 10:13 DC 05/16/25 05:51 3.375 GM Propofol (DIPRivan 1000MG/ 100ML) 1,000 mg PROTOCOL PRN IV SEDATION 05/15/25 00:30 05/16/25 10:13 DC 05/15/25 05:42 1,000 MG Rifaximin (Xifaxan) 550 mg BID PO 05/16/25 21:00 06/15/25 20:59 Sodium Bicarbonate (Sodium Bicarbonate) 650 mg QID PO 05/11/25 09:00 05/13/25 06:26 DC 05/12/25 20:29 650 MG Sodium Bicarbonate (Sodium Bicarbonate) 650 mg TID PO 05/16/25 14:00 06/15/25 13:59 05/16/25 13:39 650 MG Sodium Bicarbonate (Sodium Bicarbonate) 1,300 mg QID PO 05/13/25 09:00 05/15/25 08:59 DC 05/14/25 16:30 1,300 MG Sodium Bicarbonate (Sodium Bicarb 50meq 50ml Vial) 50 meq ONCE IV 05/12/25 13:30 05/12/25 17:30 DC 05/12/25 13:52 50 MEQ Sodium Bicarbonate (Sodium Bicarb 50meq 50ml Vial) 50 meq ONCE IV 05/12/25 19:00 05/12/25 23:00 DC Sodium Bicarbonate (Sodium Bicarb 50meq 50ml Vial) 50 meq ONCE IV 05/12/25 23:55 05/13/25 04:00 DC Sodium Chloride 1,000 ml @ 75 mls/hr [id number] IV 05/10/25 12:00 05/11/25 12:35 DC 05/11/25 01:24 75 MLS/HR Sodium Chloride (NS 50ml) 50 ml AD IV 05/15/25 05:40 05/15/25 07:22 DC Thiamine HCl (Vitamin B-1) 100 mg DAILY IVP 05/16/25 09:00 06/15/25 08:59 05/16/25 09:15 100 MG Thiamine HCl (Vitamin B-1) 100 mg DAILY PO 05/11/25 09:00 05/11/25 12:40 DC 05/11/25 09:57 100 MG Thiamine HCl (Vitamin B-1) 100 mg DAILY PO 05/14/25 09:00 05/15/25 09:52 DC 05/14/25 09:24 100 MG Zolpidem Tartrate (AmbIEN) 5 mg HS PRN PO INSOMNIA 05/10/25 12:00 05/11/25 12:35 DC Diagnostics / Radiology: [COPY/PASTE HERE IF NO REPORTS PLEASE DELETE SECTION] Assessment: [Concern for GI bleed Liver Cirrhosis Ascites Metabolic Encephalopathy ] Plan: [No GI intervention at this time given no overt bleeding. Will continue to trend labs GI prophylaxis-Pantoprazole 40mg IV q 12 hours Trend HGB and transfuse as needed to maintain HGB>7 Please contact our service if the patient has significant bleeding such as overt hematemesis and we can proceed sooner with EGD Thank you for allowing us to participate in the care of this patient. DANIEL BENITES NP May 16, 2025 14:23
[2025-05-16] MEDS: ZOSYN 3.375GM +NS 50ML IVPB SCH (17:04)
[2025-05-16] MEDS: RIFAXIMIN 550 MG TABLET PO SCH (20:00)
[2025-05-17] VITALS (10 sets, daily range): BP systolic 142–157; BP diastolic 61–71; PULSE 73–90; RESP 12–18; TEMP 98; O2SAT 98–100
[2025-05-17 04:40] LABS: IMMATURE GRANULOCYTE ABSOLUTE 0.07 K/uL (0-1); NUCLEATED RED BLOOD CELLS 0.0 % (0.0-0.19); PLATELET COUNT (AUTO) 51 K/uL (130-400); RED BLOOD CELL COUNT(AUTO) 1.98 MIL/uL (4.50-6.20); RED CELL DISTRIBUTION WIDTH 15.8 % (11.0-15.5); WHITE BLOOD COUNT (AUTO) 6.7 K/uL (4.8-10.8)
[2025-05-17 04:57] LABS: ASPARTATE AMINOTRANSFERASE 30.0 U/L (10-37); CREATININE 2.8 mg/dL (0.5-1.3); GLOMERULAR FILTR. RATE CALC 24.0 mL/min (>90); GLUCOSE,RANDOM 108.0 mg/dL (70-105); PHOSPHORUS 5.6 mg/dL (2.5-4.9); SODIUM SERUM 147.0 mmol/L (136-145); TOTAL PROTEIN, SERUM 5.3 g/dL (6.0-8.3)
[2025-05-17 05:00] LABS: UREA NITROGEN, BLOOD 81.0 mg/dL (7-18)
--- NOTE | 2025-05-17 05:47 | HMCIMG ---
EXAM: CR Chest, 1 view. CLINICAL HISTORY: Intubated. COMPARISON: CR dated 05/15/2025. FINDINGS: The right PICC line tip overlies the mid SVC. Interval withdrawal of the endotracheal and gastric tube. Stable mild blunting of the right CP angle, concerning a small pleural effusion or pleural thickening. The remaining lung edge are clear. No pneumothorax. The cardiac size is within normal limits. No acute osseous abnormality. IMPRESSION: The right PICC line tip overlies the mid SVC. Stable mild blunting of the right CP angle, concerning a small pleural effusion or pleural thickening. Interval withdrawal of the endotracheal and gastric tube. The remaining findings are stable. /Curtis
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
--- NOTE | 2025-05-17 07:00 | NUR ---
Against Medical Advice patient and were educated on the risks of leaving against medical advice despite patient having a hemoglobin of 6.7 and hematocrit of 19.7. Sharon Galaviz NP spoke to and patient on the phone and they would still like to leave against medical. Kelly removed by Anaid BARRON, no issues while removing Kelly. Picc line removed by Anaid BARRON with no resistance at 35 cm and intact. Peripheral IV removed by Anaid BARRON no resistance. AMA paper has been signed and patient is to be wheeled down to the lobby to leave via private vehicle.
--- NOTE | 2025-05-17 10:09 | DS ---
Discharge Summary Hospital Course Summary: [ 05/08 Patient's reports that she brought the patient to the emergency department with a chief complaint of altered mental status. Onset was yesterday at 1800. Location is head. Duration is constant. Character is described as delayed speech. There was no alleviating factors. There was no aggravating factors. Patient reports multiple episodes in the last three months secondary to patient's liver cirrhosis. Today in the emergency department WBCs 3.4, hemoglobin 7.6, hematocrit 23.0, platelets 66, creatinine 2.5, BUN 62, alkaline phosphatase 232, ammonia 79, urinalysis unremarkable, toxicology unremarkable. Emergency room physician recommended patient be admitted with a diagnosis of encephalopathy. 05/09 was seen by nurse practitioner and physician during rounding in room 332. Patient's ammonia level today is 79. Patient is more alert and oriented. Family members/ at the bedside. CT head brain was negative. Creatinine has improved and compared to the previous admission is about stable. We will order chest x-ray and physical therapy. UA negative for leukocytosis. We will continue to monitor patient in the meantime. A.m. lab 05/10 patient was seen by nurse practitioner and physician during rounding in room 332. Patient has some psoriasis on his side back. Benadryl was ordered. Patient's hemoglobin today was 6.7 repeat seven. We will repeat CBC later afternoon and if hemoglobin we will be less than seven we will transfuse one PRBC, no repeat CBC, just transfuse place. Occult blood was ordered. Iron panel was ordered as well and we placed patient on fluids 0.9 at 75 mL/hour. Today ammonia was also elevated we switch lactulose from 20 mL t.i.d. to 45 mL t.i.d. patient is pending PT. We also consulted Nephrology for worsening renal function. We will continue to monitor patient in the meantime. A.m. labs] 05/11 patient with past medical history of liver cirrhosis, admitted with chief complaint of altered mental status, found to have anemia with a stool occult blood positive. patient has been upgraded to the PCU. At the time of my visit he walked out of the restroom, had a p.m., looks mildly dark, nonbloody. He is alert oriented x2, chronically ill-appearing, denies chest pain, shortness shortness for breath, no nausea, no vomiting, no abdominal discomfort. Blood pressure 145/52, afebrile, saturating normal on room air. Hemoglobin 6.3, hematocrit 18.9, WBC 2.5, platelet count of 50. Sodium 151, potassium 4.3, BUN 53, creatinine 2.1, bicarbonate of 14. Ammonia level 232. ABG pH of 7.33, pCO2 21, bicarbonate of 10.8. Stool occult blood positive. Patient to receive 1 unit of PRBC, follow CBC post transfusion. GI consultation requested, follow input and recommendation. Continue Protonix and octreotide drip. Continue lactulose, follow ammonia level in a.m.. We will give sodium bicarbonate IV 50 mEq. Start sodium bicarb tablets 650 mg p.o. q.i.d.. Nephrology consultation requested, follow input and recommendation. 05/12 patient was seen by nurse practitioner and physician during rounding in room 228. Patient is s/p one PRBC yesterday. Most recent hemoglobin 8.8 hematocrit 26.1. Stool occult positive patient is pending EGD today as per GI. Ammonia level has improved 163 today. Sodium 152 potassium 3.9 creatinine 2.3 GFR 31. Continue Protonix and octreotide drip. Continue lactulose for ammonia levels a.m. labs 05/13 patient was seen by nurse practitioner and physician during rounding in room 228. Patient is complaining of abdominal pain and distention. We will order IR paracentesis. Also during the feeding patient was fed by his in the lying position. Patient started to choke nurse practitioner and RN witness above-stated incident. The waist patient up and patient was able to come off the food. Nurse practitioner instructed to on how to properly her /positioning. We will order chest x-ray and speech therapy for swallowing eval. Patient we will also receive sodium bicarb x2 doses periods stable H&H periods EGD was performed yesterday 05/12/2025 and was normal. GI signs of follow up in two weeks. We will continue to monitor the patient in meantime. A.m. labs 05/14 patient remains admitted to the PCU, blood pressure 160 4-82, afebrile, saturating 100% on 1 L nasal cannula, hemoglobin of 8.1, hematocrit 23.7. Platelet count of 46. Sodium 147, potassium 2.8, BUN of 53, creatinine 2.4, bicarbonate of 16, magnesium level 1.8, amiodarone level trending down at 81. Venous blood gas pH 7.43, pCO2 of 23, bicarb of 15.1. 05/15/25 no paracentitis was done US abd shown no ascites x4 quadrants. The patient went into decompensation become obtunded and acute resp failure with hypoxia requiring ventilation. remain intubated Critical team following appreciate their input. Repeat Hgb: 7.7 anemia work up. 05/16/25 patient remains intubated plan is to extubate today. Primary nurse reports patient opens eyes has been off of sedation. Ammonia level improved. Spouse at bedside all questions and concerns were addressed. 05/17/25 Reviewed labs critical value Hgb 6.7 HCT 19.7 will be transfuse this morning. GI no GI intervention: no overt bleeding. Patient refused blood transfusion left AMA. Procedure(s): Item Value Date Time Hemoglobin 6.7 g/dL *L 05/17/25 0455 Hematocrit 19.7 % *L 05/17/25 0455 Hemoglobin 6.6 g/dL *L 05/17/25 0408 Hematocrit 19.0 % *L 05/17/25 0408 Red Blood Count 1.98 MIL/uL L 05/17/25 0408 White Blood Count 6.7 K/uL # 05/17/25 0408 White Blood Count 3.1 K/uL L # 05/15/25 0339 White Blood Count 4.9 K/uL # 05/15/25 1000 White Blood Count 5.0 K/uL 05/16/25 0504 Red Blood Count 2.11 MIL/uL L 05/15/25 0339 Red Blood Count 2.33 MIL/uL L 05/15/25 1000 Red Blood Count 2.34 MIL/uL L 05/16/25 0504 Hemoglobin 7.1 g/dL L 05/15/25 0339 Hemoglobin 7.7 g/dL L 05/15/25 1000 Hemoglobin 7.6 g/dL L 05/16/25 0504 Hematocrit 22.5 % L 05/16/25 0504 Hematocrit 22.5 % L 05/15/25 1000 Hematocrit 19.7 % *L 05/15/25 0339 Platelet Count 51 K/uL L 05/17/25 0408 Platelet Count 46 K/uL L 05/16/25 0504 Platelet Count 48 K/uL L 05/15/25 1000 Platelet Count 52 K/uL L 05/15/25 0339 Hemoglobin 7.3 g/dL L 05/10/25 1558 Hemoglobin 7.0 g/dL *L 05/10/25 0721 Hemoglobin 6.7 g/dL *L 05/10/25 0415 Hemoglobin 7.6 g/dL L 05/09/25 0525 Hemoglobin 7.6 g/dL L 05/08/25 2238 Hematocrit 23.0 % L 05/08/25 2238 Hematocrit 22.6 % L 05/09/25 0525 Hematocrit 20.0 % *L 05/10/25 0415 Hematocrit 21.0 % *L 05/10/25 0721 Hematocrit 21.5 % L 05/10/25 1558 Platelet Count 64 K/uL L 05/10/25 1558 Platelet Count 65 K/uL L 05/10/25 0415 Platelet Count 65 K/uL L 05/09/25 0525 Platelet Count 66 K/uL L 05/08/25 2238 White Blood Count 3.4 K/uL L 05/08/25 2238 White Blood Count 3.4 K/uL L 05/09/25 0525 White Blood Count 2.8 K/uL L 05/10/25 0415 Hemoglobin 6.3 g/dL *L 05/11/25 0357 Hemoglobin 8.8 g/dL L # 05/12/25 0351 Hemoglobin 8.5 g/dL L 05/13/25 0324 Red Blood Count 2.45 MIL/uL L 05/14/25 0316 Hemoglobin 8.6 g/dL L 05/14/25 2350 Platelet Count 50 K/uL L 05/11/25 0357 Platelet Count 44 K/uL L # 05/13/25 0324 Platelet Count 46 K/uL L 05/14/25 0316 Platelet Count 53 K/uL L 05/14/25 2350 Hematocrit 26.1 % L # 05/12/25 0351 Hematocrit 18.9 % *L 05/11/25 0357 Hematocrit 25.2 % L 05/13/25 0324 Hematocrit 23.7 % L 05/14/25 0316 Hemoglobin 8.1 g/dL L 05/14/25 0316 Hematocrit 24.5 % L 05/14/25 2350 White Blood Count 5.1 K/uL 05/14/25 2350 White Blood Count 8.6 K/uL 05/13/25 0324 White Blood Count 8.9 K/uL # 05/12/25 0351 White Blood Count 2.5 K/uL L 05/11/25 0357 Sodium Level 147 mmol/L H 05/17/25 0408 Potassium Level 3.5 mmol/L 05/17/25 0408 Chloride Level 115 mmol/L H 05/17/25 0408 Carbon Dioxide Level 16 mmol/L L 05/17/25 0408 Blood Urea Nitrogen 81 mg/dL *H 05/17/25 0408 Creatinine 2.8 mg/dL H 05/17/25 0408 Glomerular Filtration Rate Calc 24 mL/min 05/17/25 0408 Random Glucose 108 mg/dL H 05/17/25 0408 Total Calcium 8.0 mg/dL L 05/17/25 0408 Phosphorus Level 5.6 mg/dL H 05/17/25 0408 Magnesium Level 2.40 mg/dL 05/17/25 0408 Ammonia 45 umol/L H # 05/17/25 0408 Albumin 3.0 g/dL L # 05/17/25 0408 Total Protein 5.3 g/dL L 05/17/25 0408 Chloride Level 113 mmol/L H 05/16/25 0504 Carbon Dioxide Level 17 mmol/L L 05/16/25 0504 Blood Urea Nitrogen 72 mg/dL H 05/16/25 0504 Creatinine 2.9 mg/dL H 05/16/25 0504 Glomerular Filtration Rate Calc 23 mL/min 05/16/25 0504 Random Glucose 164 mg/dL H 05/16/25 0504 Total Calcium 8.0 mg/dL L 05/16/25 0504 Phosphorus Level 6.7 mg/dL H 05/16/25 0504 Aspartate Amino Transf (AST/SGOT) 39 U/L H 05/16/25 0504 Alanine Aminotransferase (ALT/SGPT) 35 U/L 05/16/25 0504 Alkaline Phosphatase 160 U/L H 05/16/25 0504 Ammonia 64 umol/L H 05/16/25 0504 Aspartate Amino Transf (AST/SGOT) 30 U/L 05/17/25 0408 Alanine Aminotransferase (ALT/SGPT) 28 U/L 05/17/25 0408 Alkaline Phosphatase 109 U/L # 05/17/25 0408 Ammonia 58 umol/L H # 05/15/25 1000 Sodium Level 145 mmol/L 05/16/25 0504 Potassium Level 4.0 mmol/L 05/16/25 0504 Blood Urea Nitrogen 53 mg/dL H 05/14/25 2048 Creatinine 2.4 mg/dL H 05/14/25 2048 Blood Urea Nitrogen 53 mg/dL H 05/14/25 2350 Creatinine 2.3 mg/dL H 05/14/25 2350 Blood Urea Nitrogen 55 mg/dL H 05/15/25 0339 Creatinine 2.4 mg/dL H 05/15/25 0339 Ammonia 132 umol/L *H 05/15/25 0339 Alkaline Phosphatase 203 U/L H 05/15/25 0339 Alanine Aminotransferase (ALT/SGPT) 39 U/L 05/15/25 0339 Aspartate Amino Transf (AST/SGOT) 73 U/L H 05/14/25 2350 Alanine Aminotransferase (ALT/SGPT) 48 U/L # 05/14/25 2350 Alkaline Phosphatase 263 U/L H # 05/14/25 2350 Ammonia 246 umol/L *H 05/14/25 2048 B-Type Natriuretic Peptide 392 pg/mL H 05/14/25 2350 Sodium Level 141 mmol/L 05/14/25 2350 Sodium Level 142 mmol/L 05/15/25 0339 Potassium Level 3.4 mmol/L L 05/14/25 2350 Potassium Level 3.3 mmol/L L 05/15/25 0339 Sodium Level 141 mmol/L 05/14/25 2048 Potassium Level 3.5 mmol/L 05/14/25 2048 Chloride Level 112 mmol/L H 05/14/25 2048 Carbon Dioxide Level 16 mmol/L L 05/14/25 2048 Chloride Level 112 mmol/L H 05/14/25 2350 Carbon Dioxide Level 17 mmol/L L 05/14/25 2350 Chloride Level 114 mmol/L H 05/15/25 0339 Carbon Dioxide Level 17 mmol/L L 05/15/25 0339 Blood Urea Nitrogen 53 mg/dL H 05/14/25 0316 Blood Urea Nitrogen 51 mg/dL H 05/13/25 0324 Blood Urea Nitrogen 51 mg/dL H 05/12/25 0351 Blood Urea Nitrogen 53 mg/dL H 05/11/25 0357 Creatinine 2.1 mg/dL H 05/11/25 0357 Creatinine 2.3 mg/dL H 05/12/25 0351 Creatinine 2.5 mg/dL H 05/13/25 0324 Creatinine 2.4 mg/dL H 05/14/25 0316 Ammonia 232 umol/L *H 05/11/25 0357 Ammonia 163 umol/L *H 05/12/25 0351 Ammonia 151 umol/L *H 05/13/25 0324 Ammonia 81 umol/L H 05/14/25 0316 Assessment/Plan: discharged dx's; acute resp. failure with hypoxemia requiring intubation not POA extubation 05/16/25 Hepatic Metabolic encephalopathy, POA improvig Uremia, POA Acute blood loss unknown origin POA requirg blood transfusion Status post EGD normal Multifactorial anemia POA Psoriasis POA Acute kidney injury,on CRF POA Hepatic encephalopathy, POA Pancytopenia, POA Liver cirrhosis, POA Status post ascites PLAN: The patient left AMA: refused to stay for blood transfusion was adamant I spoke with left she support his decision. Discharge Instructions: REASON: fly ORDERING PHYSICIAN: MARGARITO PRASAD APRN PROCEDURE: RENAL - US RENAL SONOGRAM EXAMINATION: ULTRASOUND OF THE RETROPERITONEUM. CLINICAL HISTORY: FLY. COMPARISON: None provided. TECHNIQUE: Real-time grayscale and color ultrasound images of the kidneys. FINDINGS: The kidneys are normal in caliber; the right kidney measures 10.0 x 4.9 x 4.8 cm in its craniocaudal, AP, and transverse dimensions, and the left kidney measures 9.7 x 5.1 x 4.0 cm in its craniocaudal, AP, and transverse dimensions. There is normal renal cortical thickness and increased cortical echogenicity. There is no renal calculus. There is no hydronephrosis. The urinary bladder is normal in caliber and wall thickness (0.4 cm). There are no calculi in the urinary bladder. Incidentally noted, dilated splenic vein that measures 2.1 cm. IMPRESSION: Increased cortical echogenicity, may reflect renal parenchymal disease. Recommend clinical correlation and laboratory parameters. Dilated splenic vein may reflect aneurysm. Recommend contrast enhanced CT abdomen and pelvis. /[facility] DICTATED BY: CARI HERRING Jr., MD DATE: 05/10/251515 ELECTRONICALLY SIGNED BY: CARI HERRING Jr., MD DATE: 05/10/251515 REASON: liver cirrhosis ORDERING PHYSICIAN: JERMAN DAO MD PROCEDURE: [id number] - US ABDOMINAL RUQ\LTD EXAM: US Abdomen Limited, Right Upper Quadrant. CLINICAL HISTORY: 65y Male liver cirrhosis TECHNIQUE: Real-time ultrasound of the right upper quadrant with image documentation. Limited right upper quadrant ultrasound performed. Images were obtained in grayscale. Exam limited due to patient condition. COMPARISON: None provided. FINDINGS: LIVER: Liver measures approximately 12.1 cm. Echotexture appears coarse. No focal hepatic lesions clearly identified. Liver shows coarse echotexture???nonspecific, may correlate with hepatic parenchymal disease. GALLBLADDER: Wall thickness is 3 mm (upper limits of normal). Possible echogenic focus at the gallbladder neck concerning for stone; no definite shadowing observed. No pericholecystic fluid noted. Gallbladder wall mildly thickened; possible stone at the gallbladder neck???recommend clinical correlation. COMMON BILE DUCT: CBD measures 3 mm (within normal limits). Right hepatic duct: 3 mm Left hepatic duct: 2 mm CBD and intrahepatic ducts not dilated. PANCREAS: Partially visualized. Evaluation limited due to overlying bowel gas and patient condition. RIGHT KIDNEY: Measures 10.7 x 5.3 x 5.2 cm. Normal size and contour. No hydronephrosis identified. No masses or stones visualized. COMMENTS: Technically limited study. Patient is intubated and unable to hold breath or reposition. Portions of the pancreas and other abdominal structures could not be fully evaluated. IMPRESSION: 1. Liver with coarse echotexture, no focal hepatic lesions identified. 2. Gallbladder with wall thickness at the upper limits of normal and a possible echogenic focus at the neck concerning for stone; no definite shadowing observed. No pericholecystic fluid. 3. CBD and intrahepatic ducts not dilated. 4. Limited study due to patient condition. REASON: pt intubated ORDERING PHYSICIAN: ULYSSES GORDON PROCEDURE: [id number] - CHEST 1VW EXAM: CR Chest, 1 view. CLINICAL HISTORY: Intubated. COMPARISON: CR dated 05/15/2025. FINDINGS: The right PICC line tip overlies the mid SVC. Interval withdrawal of the endotracheal and gastric tube. Stable mild blunting of the right CP angle, concerning a small pleural effusion or pleural thickening. The remaining lung edge are clear. No pneumothorax. The cardiac size is within normal limits. No acute osseous abnormality. IMPRESSION: The right PICC line tip overlies the mid SVC. Stable mild blunting of the right CP angle, concerning a small pleural effusion or pleural thickening. Interval withdrawal of the endotracheal and gastric tube. The remaining findings are stable. /[facility] Medications: Active Scripts Lactulose (Lactulose) 10 Gram/15 Ml Solution, 45 ML PO TID for constipation, #500 ML 0 Refills Prov:REGINA LOGAN MD 03/29/25 Reported Medications Furosemide (Furosemide) 40 Mg Tablet, 1 TAB PO DAILY for 30 Days, #30 TAB 0 Refills 05/11/25 Spironolactone (Spironolactone) 25 Mg Tablet, 1 TAB PO DAILY for 30 Days, #30 TAB 0 Refills 05/09/25 ATTESTATION BY PHYSICIAN I have seen and examined the patient. I reviewed the documentation, medical decision making, and treatment plan as noted by the mid-level provider above. I agree with the findings and plan of care. JERMAN DAO MD, ELIZABETH NP May 17, 2025 10:09
== END 2025-05-17 07:25 | disposition left against medical advice (07) | DRG 441 ==
LOC: EDH 21:52 → EDHIP 21:53 → 3AH 05-09 03:32 → 2DH 05-11 07:07 → 2CH 05-14 23:30
PROVIDERS: ADMIT Internal Medicine; ATTEND Internal Medicine
PROC: 30233N1 Transfusion of Nonautologous Red Blood Cells into Peripheral Vein, Percutaneous Approach (ICD-10-PCS; 2025-05-11)
PROC: 0DJ08ZZ Inspection of Upper Intestinal Tract, Via Natural or Artificial Opening Endoscopic (ICD-10-PCS; 2025-05-12)
PROC: 5A09357 Assistance with Respiratory Ventilation, Less than 24 Consecutive Hours, Continuous Positive Airway Pressure (ICD-10-PCS; 2025-05-14)
PROC: 5A1935Z Respiratory Ventilation, Less than 24 Consecutive Hours (ICD-10-PCS; principal; 2025-05-15)
PROC: 0BH18EZ Insertion of Endotracheal Airway into Trachea, Via Natural or Artificial Opening Endoscopic (ICD-10-PCS; 2025-05-15)
PROC: 02HV33Z Insertion of Infusion Device into Superior Vena Cava, Percutaneous Approach (ICD-10-PCS; 2025-05-15)
PROC: B548ZZA Ultrasonography of Superior Vena Cava, Guidance (ICD-10-PCS; 2025-05-15)
PROC: 5A09357 Assistance with Respiratory Ventilation, Less than 24 Consecutive Hours, Continuous Positive Airway Pressure (ICD-10-PCS; 2025-05-15)
DX: K76.82 Hepatic encephalopathy (principal); G93.41 Metabolic encephalopathy; J69.0 Pneumonitis due to inhalation of food and vomit; J96.01 Acute respiratory failure with hypoxia; D61.818 Other pancytopenia; N17.9 Acute kidney failure, unspecified; E87.20 Acidosis, unspecified; K76.6 Portal hypertension; K92.1 Melena; K31.89 Other diseases of stomach and duodenum; L40.9 Psoriasis, unspecified; N18.9 Chronic kidney disease, unspecified; E88.09 Other disorders of plasma-protein metabolism, not elsewhere classified; K70.31 Alcoholic cirrhosis of liver with ascites; Z51.5 Encounter for palliative care
CPT/HCPCS: 31500; 36415; 36430; 36569; 36600; 43235; 70450; 71045; 76705; 76770; 80048; 80051; 80053; 80076; 80305; 81001; 82140; 82270; 82435; 82570; 82803; 82947; 82948; 83540; 83550; 83605; 83690; 83735; 83880; 83935; 84100; 84132; 84295; 84300; 84550; 85014; 85018; 85025; 85027; 85384; 85610; 85730; 86850; 86900; 86901; 86923; 92610; 94002; 94003; 94640; 94660; 94664; 96360; 99285; A4606; C1894; G0378; J0330; J0360; J1171; J1200; J2003; J2354; J2371; J2405; J2470; J2543; J2704; J2919; J3411; J3480; J3490; J7030; J7050; P9016; P9046; P9047; A4215; A4222; A4223; A4620; A7002; A9900; C1751